=== PATIENT | female | born 1965 | race Caucasian/White ===

== ENCOUNTER 2022-08-17 09:58 | Outpatient (REF) | payer OTHER, SELFPAY ==
--- NOTE | ~2022-08-17 | XR_ITS ---
EXAMINATION: XR LUMBOSACRAL SPINE CLINICAL INFORMATION: Degenerative disc disease. COMPARISON: None TECHNIQUE: AP, bilateral oblique and lateral (neutral, flexion and extension) views of the lumbar spine and lateral view of the lumbosacral junction. FINDINGS: There is bony demineralization. There is a moderate thoracolumbar levoscoliosis. At T12-L1 and L1-L2, there is moderately severe rightward disc space narrowing. At L2-L3, there is mild disc space narrowing at a 4 mm retrolisthesis. The remaining disc spaces are relatively well-maintained. No acute fracture or spondylolisthesis is seen. There is no instability with flexion or extension. There is multi-level thoracolumbar spondylosis. The posterior elements are intact. There is facet arthropathy, most pronounced at L5-S1. The paravertebral soft tissues are unremarkable. XR/XR sacrum coccyx min 2V IMPRESSION: 1. There is a moderate thoracolumbar levoscoliosis. 2. There is moderately severe degenerative disc disease at T12-L1 and L1-L2., And mild degenerative disc disease is seen at L2-L3. 3. No significant instability is seen with flexion or extension. 4. There is multi-level lumbar spondylosis and facet arthropathy. EXAMINATION: XR SACRUM AND COCCYX CLINICAL INFORMATION: Degenerative changes. COMPARISON: None available. TECHNIQUE: 3 frontal and lateral views of the sacrum and coccyx were obtained. FINDINGS: There are no fractures. No bone, joint or soft tissue abnormality is demonstrated. IMPRESSION: Unremarkable examination.
--- NOTE | ~2022-08-17 | XR_ITS ---
EXAMINATION: XR LUMBOSACRAL SPINE CLINICAL INFORMATION: Degenerative disc disease. COMPARISON: None TECHNIQUE: AP, bilateral oblique and lateral (neutral, flexion and extension) views of the lumbar spine and lateral view of the lumbosacral junction. FINDINGS: There is bony demineralization. There is a moderate thoracolumbar levoscoliosis. At T12-L1 and L1-L2, there is moderately severe rightward disc space narrowing. At L2-L3, there is mild disc space narrowing at a 4 mm retrolisthesis. The remaining disc spaces are relatively well-maintained. No acute fracture or spondylolisthesis is seen. There is no instability with flexion or extension. There is multi-level thoracolumbar spondylosis. The posterior elements are intact. There is facet arthropathy, most pronounced at L5-S1. The paravertebral soft tissues are unremarkable. XR/XR lumbar spine 6V w bending IMPRESSION: 1. There is a moderate thoracolumbar levoscoliosis. 2. There is moderately severe degenerative disc disease at T12-L1 and L1-L2., And mild degenerative disc disease is seen at L2-L3. 3. No significant instability is seen with flexion or extension. 4. There is multi-level lumbar spondylosis and facet arthropathy. EXAMINATION: XR SACRUM AND COCCYX CLINICAL INFORMATION: Degenerative changes. COMPARISON: None available. TECHNIQUE: 3 frontal and lateral views of the sacrum and coccyx were obtained. FINDINGS: There are no fractures. No bone, joint or soft tissue abnormality is demonstrated. IMPRESSION: Unremarkable examination.
== END 2022-08-17 09:59 | disposition home or self-care (01) ==
LOC: HO.XRAY 09:58
PROVIDERS: PCP Student in an Organized Health Care Education/Training Program; Visit Provider Nurse Practitioner Family
DX: M53.3 Sacrococcygeal disorders, not elsewhere classified (principal); M47.816 Spondylosis without myelopathy or radiculopathy, lumbar region; M51.37 Other intervertebral disc degeneration, lumbosacral region; E66.9 Obesity, unspecified
CPT/HCPCS: 72114; 72220; 99202

== ENCOUNTER 2022-09-29 06:05 | Outpatient (REF) | payer OTHER, SELFPAY ==
--- NOTE | ~2022-09-29 | FL_ITS ---
EXAMINATION: XR FLUOROSCOPY WITH IMAGES CLINICAL INFORMATION: Sacrococcygeal disorders. COMPARISON: None available. TECHNIQUE: Fluoroscopy Supervised By: Dr. Pike. Fluoroscopy Time: 0.2. Cumulative Dose: 16.6 mGy. DAP: 3.78 Gycm2. Images: 1. FINDINGS: Single lateral image of sacrum reveals needle inserted through the sacral foramina with contrast opacifying the presacral space. The visualized bones are grossly unremarkable. FL/FL guidance in treatment room IMPRESSION: Fluoroscopy guidance was provided to referring physician for pain management.
== END 2022-09-29 06:06 | disposition home or self-care (01) ==
LOC: CF 06:05
PROVIDERS: Visit Provider Anesthesiology
DX: M53.3 Sacrococcygeal disorders, not elsewhere classified (principal); M51.37 Other intervertebral disc degeneration, lumbosacral region; M47.816 Spondylosis without myelopathy or radiculopathy, lumbar region; E66.9 Obesity, unspecified; F17.200 Nicotine dependence, unspecified, uncomplicated
CPT/HCPCS: 64999; J3301

== ENCOUNTER 2022-10-27 06:09 | Outpatient (REF) | payer OTHER, SELFPAY ==
--- NOTE | ~2022-10-27 | FL_ITS ---
EXAMINATION: XR FLUOROSCOPY WITH IMAGES CLINICAL INFORMATION: Sacrococcygeal disorders, not elsewhere classified. COMPARISON: None available. TECHNIQUE: Fluoroscopy Supervised By: Dr. Pike. Fluoroscopy Time: 0.3 minutes. Cumulative Dose: 7.05 mGy. DAP: 1.92 Gycm2. Images: 4. FINDINGS: Images demonstrate needle placement and contrast injection of the bilateral sacroiliac joints FL/FL guidance in treatment room IMPRESSION: Fluoroscopy guidance for sacroiliac joint injections
== END 2022-10-27 06:10 | disposition home or self-care (01) ==
LOC: CF 06:09
PROVIDERS: Visit Provider Anesthesiology
DX: M53.3 Sacrococcygeal disorders, not elsewhere classified (principal); M51.37 Other intervertebral disc degeneration, lumbosacral region; M47.816 Spondylosis without myelopathy or radiculopathy, lumbar region; E66.9 Obesity, unspecified
CPT/HCPCS: 27096; J2795

== ENCOUNTER → 2022-10-29 08:28 | Outpatient (BNVA) | payer OTHER, SELFPAY | PROVIDERS: PCP Student in an Organized Health Care Education/Training Program; Visit Provider Nurse Practitioner Family | DX: M47.816 Spondylosis without myelopathy or radiculopathy, lumbar region (principal); M53.3 Sacrococcygeal disorders, not elsewhere classified; G43.909 Migraine, unspecified, not intractable, without status migrainosus; E66.9 Obesity, unspecified; Z68.32 Body mass index [BMI] 32.0-32.9, adult; F17.210 Nicotine dependence, cigarettes, uncomplicated | CPT/HCPCS: 99212 ==

== ENCOUNTER 2022-11-30 08:31 | Outpatient (AMB) | payer OTHER, SELFPAY ==
--- NOTE | 2022-11-30 08:32 | MHC.OFFVIS ---
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 Patient continues to endorse bilateral lower back pain with radiation to her buttocks and lateral hips and has been awaiting for insurance approval for bilateral therapeutic SIJ injections. Peer to Peer review was done today over the phone with Dr. Quinteros with clarification that previous injections were only diagnostic, with anesthetic only and no steroids were given. Next step for therapeutic SIJ injections were approved and we will book this accordingly once we receive confirmation. Patient reports right calf pain for one month. Denies any inciting events, injury, falls, or trauma. Pain is localized to right calf with mild tenderness upon light palpation but no swelling, warmth, rash or erythema. Patient denies contacting her PCP or seeking medical evaluation at ER or Urgent clinic for right calf pain. We will order Duplex US of RLE to rule out DVT. Patient is also reports abdominal pain with constipation for almost one week and will reach out to her PCP today. She notes that she might need to increase her fluid intake as well. Denies any recent cough, cold, infection, fever or other significant changes in medical history since last office visit. Patient denies any bladder or bowel incontinence or saddle anesthesia. PRIOR: Patient presents today to assess response to Ganglion Impar Block on 09/29/22 and Bilateral Diagnostic SIJ injections on 10/27/[address] Pike. Patient reports 50% pain relief in coccyx pain since injection and 80% pain relief for 1.5 days since SIJ injections with notable improved mobility, functioning and range of motions. Patient is interested to undergo therapeutic SIJ injections as next step. We also discussed peripheral nerve stimulation and RFA procedures as a longer and more sustained pain relief. Patient also reports increasing daily migraines headaches. She has elevated BP today without diagnosis of hypertension. Patient was encouraged to follow up regarding BP with her provider for further evaluation. I will refer patient to neurology and will obtain brain/head MRI. Denies any recent cough, cold, infection, fever or other significant changes in medical history since last office visit. Past Procedures: 10/27/22: Bilateral Diagnostic SIJ injections-80% pain relief for 1.5 days 09/29/22: Ganglion Impar Block-50% pain relief PRIOR: Patient is a pleasant 57 years old female with a history of lumbar DDD, chronic coccydynia and bilateral sacroiliitis, presents today for initial evaluation of lower back pain and coccyx pain. She attributes her pain generators to traumatic slip and fall injury about 5 years ago. Denies any recent trauma, injury or falls. She has had pain in her tailbone radiating towards her lower back and occasionally into her left leg since fall injury. Pain is constant and described as dull, sore, hurting, aching, heavy, spreading, radiating, piercing and occasionally throbbing. Pain increased with sitting, changing positions, or applying pressure directly to her tailbone. Pain affects her daily activities, she cannot sleep supine due to bilateral rotator cuff pain and has been sleeping in a recliner. Pain has been managed with methocarbamol and occasionally OTC medications with continued symptoms. She uses Donut pillow for pressure relief. Denies any previous injections or spine surgery. She reports completing pelvic physiotherapy in [place] with manipulation of her sacroiliac joints with minimal improvements. Denies fever, weight loss, abdominal or groin pain, vaginal bleeding, prolapse or discharge, bladder or bowel incontinence or saddle anesthesia. Patient is a daily smoker and currently not motivated to quit as she recently lost her dog. [facility] Medical History Carpal tunnel syndrome Complete tear of left rotator cuff DDD (degenerative disc disease), lumbosacral Depression Hyperlipidemia Migraine Osteopenia Plantar fasciitis Restless leg syndrome Vitamin D deficiency Social History Tobacco use type: Cigarette Cigarette Packs Per Day: 0.5 Review of Systems Const All systems reviewed & are unremarkable except as noted in HPI and below Physical Exam Vital Signs: Last Vital Signs Pulse 85 11/30/22 08:38 BP 166/75 H 11/30/22 08:38 Pulse Ox 96 11/30/22 08:38 Oxygen Delivery Method Room Air 11/30/22 08:38 BMI result Body Mass Index 32.1 General: Appears afebrile. Alert and oriented. Mood and affect appropriate. Follows and participates in conversation appropriately. Respiratory effort is unlabored. No cough. Able to transition from sit to stand unassisted. Mild limping with antalgic gait on the right. Back/Spine/Pelvis Cervical Spine: cervical muscular tenderness, pain with cervical ROM and No Cervical spine tenderness Thoracic/Lumbar Spine: thoracic and lumbar spine normal to inspection, No Thoracic/lumbar spine scar(s), Lasegue's sign negative, pain with thoraco-lumbar ROM, paraspinal muscle tenderness, No thoracic spinal tenderness and lumbar spinal tenderness (L4-S1) Pelvis: buttock tenderness bilaterally Sacroiliac joints: bilaterally (+Pelvic compression, Gaenslen, Ad's, Stinchfield, R>L) tender to palpation Extrem General: Yes capillary refill normal, Yes no clubbing, cyanosis or edema and Yes no calf tenderness Right lower extremity: lower leg Details: normal to inspection, tenderness Location: of the posterior calf and no edema; no erythema, no localized swelling, no ecchymosis and no unusual warmth Results Reviewed Results Reviewed: XR LUMBOSACRAL SPINE 08/17/22 FINDINGS: There is bony demineralization. There is a moderate thoracolumbar levoscoliosis. At T12-L1 and L1-L2, there is moderately severe rightward disc space narrowing. At L2-L3, there is mild disc space narrowing at a 4 mm retrolisthesis. The remaining disc spaces are relatively well-maintained. No acute fracture or spondylolisthesis is seen. There is no instability with flexion or extension. There is multi-level thoracolumbar spondylosis. The posterior elements are intact. There is facet arthropathy, most pronounced at L5-S1. The paravertebral soft tissues are unremarkable. IMPRESSION: ? 1. There is a moderate thoracolumbar levoscoliosis. ? 2. There is moderately severe degenerative disc disease at T12-L1 and L1-L2., And mild degenerative disc disease is seen at L2-L3. ? 3. No significant instability is seen with flexion or extension. ? 4. There is multi-level lumbar spondylosis and facet arthropathy. ? XR SACRUM AND COCCYX 08/17/22 ? FINDINGS: There are no fractures. No bone, joint or soft tissue abnormality is demonstrated. ? IMPRESSION: Unremarkable examination. Assessment & Plan Assessment & Plan (1) Right calf pain: Code(s): M79.661 - Pain in right lower leg (2) Lumbar spondylosis: Code(s): M47.816 - Spondylosis without myelopathy or radiculopathy, lumbar region (3) Sacroiliac joint pain: Code(s): M53.3 - Sacrococcygeal disorders, not elsewhere classified (4) Tobacco dependence: Code(s): F17.200 - Nicotine dependence, unspecified, uncomplicated (5) Obesity (BMI 30.0-34.9): Code(s): E66.9 - Obesity, unspecified Plan 1. Proceed with Bilateral therapeutic SIJ injections with local and fluoroscopy for SIJ pain as planned. 2. Patient was advised to follow up with her PCP regarding right calf pain and abdominal pain with constipation. US Duplex right lower extremity ordered to rule out DVT. All questions and concerns have been answered and patient agreed with the plan. Follow up after injections and sooner if needed. Orders: Orders US venous duplex LE RT Today M79.661 - Pain in right lower leg Coding Level of Care Code Est Pt Level 4 (35526) Diagnoses Right calf pain M79.661 Lumbar spondylosis M47.816 Sacroiliac joint pain M53.3 Tobacco dependence F17.200 Obesity (BMI 30.0-34.9) E66.9
[2022-11-30 08:38] VITALS: BP 166/75; PULSE 85; O2SAT 96; BMI 32.1
== END 2022-11-30 09:20 | disposition home or self-care (01) ==
PROVIDERS: PCP Student in an Organized Health Care Education/Training Program; Visit Provider Nurse Practitioner Family
DX: M79.661 Pain in right lower leg (principal); M47.816 Spondylosis without myelopathy or radiculopathy, lumbar region; M53.3 Sacrococcygeal disorders, not elsewhere classified; F17.200 Nicotine dependence, unspecified, uncomplicated; E66.9 Obesity, unspecified
CPT/HCPCS: 99214

== ENCOUNTER → 2022-11-30 08:31 | Outpatient (BNVA) | payer OTHER, SELFPAY | PROVIDERS: PCP Student in an Organized Health Care Education/Training Program; Visit Provider Nurse Practitioner Family | DX: M79.661 Pain in right lower leg (principal); M47.816 Spondylosis without myelopathy or radiculopathy, lumbar region; M53.3 Sacrococcygeal disorders, not elsewhere classified; E66.9 Obesity, unspecified; F17.210 Nicotine dependence, cigarettes, uncomplicated | CPT/HCPCS: 99212 ==

== ENCOUNTER 2022-12-04 14:23 | Outpatient (REF) | payer OTHER, SELFPAY ==
--- NOTE | ~2022-12-04 | US_ITS ---
EXAMINATION: US VENOUS ULTRASOUND WITH DOPPLER LOWER EXTREMITY, RIGHT CLINICAL INFORMATION: Right lower extremity pain. COMPARISON: None available. TECHNIQUE: Ultrasound of the deep veins is performed from the hip to the calf with compression sonography and color and pulse Doppler assessment. Spectral analysis with color-flow imaging is performed. FINDINGS: There is normal venous compression and respiratory variation and augmented flow. The visualized common femoral vein, superficial femoral vein, profunda femoral vein, popliteal vein, and the trifurcation region shows no evidence of deep venous thrombosis. No right popliteal cyst. The subcutaneous soft tissues are unremarkable. US/US venous duplex LE RT IMPRESSION: No evidence for deep venous thrombosis in the visualized veins of the right lower extremity.
== END 2022-12-04 14:24 | disposition home or self-care (01) ==
LOC: HO.HMGCX 14:23
PROVIDERS: Visit Provider Nurse Practitioner Family
DX: M79.661 Pain in right lower leg (principal)
CPT/HCPCS: 93971

== ENCOUNTER 2022-12-16 08:15 | Outpatient (REF) | payer OTHER, SELFPAY ==
--- NOTE | ~2022-12-16 | MR_ITS ---
EXAMINATION: MRI BRAIN WITHOUT CONTRAST CLINICAL INFORMATION: Migraine headaches. COMPARISON: No relevant prior imaging. TECHNIQUE: Multiplanar MR imaging of the brain was performed without contrast. 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 No acute territorial infarct. No pathological magnetic susceptibility artifact. Intracranial vascular flow voids are grossly maintained. There is no intracranial mass effect or midline shift. No abnormal extra-axial collection. Lateral and third ventricles are normal. No hydrocephalus. Midline structures including the cervicomedullary junction are normal. No acute bone marrow signal changes. No mastoid middle ear effusion. Trivial mucosal thickening within ethmoid air cells and maxillary sinuses. Globes and orbits are grossly symmetric. 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 Otherwise unremarkable examination. No evidence of acute territorial infarct or hemorrhage.
== END 2022-12-16 08:16 | disposition home or self-care (01) ==
LOC: HO.MRI 08:15
PROVIDERS: PCP Student in an Organized Health Care Education/Training Program; Visit Provider Nurse Practitioner Family
DX: G43.909 Migraine, unspecified, not intractable, without status migrainosus (principal); I63.9 Cerebral infarction, unspecified
CPT/HCPCS: 70551

== ENCOUNTER 2023-01-05 05:56 | Outpatient (REF) | payer OTHER, SELFPAY ==
--- NOTE | ~2023-01-05 | FL_ITS ---
EXAMINATION: XR FLUOROSCOPY WITH IMAGES CLINICAL INFORMATION: Sacrococcygeal disorders, not elsewhere classified. COMPARISON: None available. TECHNIQUE: Fluoroscopy Supervised By: Dr. Edilson Pike. Fluoroscopy Time: 0.3 minutes. Cumulative Dose: 3.61 mGy. DAP: 0.0628 Gycm2. Images: 2. FINDINGS: Images demonstrate needle placement and contrast injection over the bilateral sacroiliac joints FL/FL guidance in treatment room IMPRESSION: Fluoroscopy guidance for sacroiliac joint injections
== END 2023-01-05 05:57 | disposition home or self-care (01) ==
LOC: CF 05:56
PROVIDERS: Visit Provider Anesthesiology
DX: M53.3 Sacrococcygeal disorders, not elsewhere classified (principal); M47.816 Spondylosis without myelopathy or radiculopathy, lumbar region; M79.661 Pain in right lower leg; E11.9 Type 2 diabetes mellitus without complications; E66.9 Obesity, unspecified
CPT/HCPCS: 27096; J3301

== ENCOUNTER 2023-01-05 07:37 | Outpatient (AMB) | payer OTHER, SELFPAY ==
[2023-01-05 07:41] VITALS: BP 134/84; PULSE 88; RESP 16; O2SAT 98; BMI 32.2
--- NOTE | 2023-01-05 07:41 | MHC.OFFVIS ---
Intake Vital Signs 01/05/23 07:41 01/05/23 08:49 Height 5 ft 3 in 5 ft 3 in Weight 182 lb 182 lb BMI 32.2 32.2 BP 134/84 130/72 Blood Pressure Location Lt brachial Lt brachial Position Sitting Sitting Respiration 16 16 Pulse 88 78 Pulse Source Pulse Oximeter Pulse Oximeter Pulse Oximetry (%) 98 98 Oxygen Delivery Method Room Air Room Air Comment Pre-Op post-op Intake Visit Reasons: BILAT THERAPEUTIC SIJ INJECTIONS/*ATIVAN PRE* Allergies Sulfa (Sulfonamide Antibiotics) Allergy (Unknown, Verified 01/05/23 07:42) Rash tramadol Allergy (Unknown, Verified 01/05/23 07:42) Itching PFSH Medical History Carpal tunnel syndrome Complete tear of left rotator cuff DDD (degenerative disc disease), lumbosacral Depression Hyperlipidemia Migraine Osteopenia Plantar fasciitis Restless leg syndrome Vitamin D deficiency Social History Tobacco use type: Cigarette Cigarette Packs Per Day: 0.5 Physical Exam Vital Signs: Last Vital Signs Pulse 78 01/05/23 08:49 Resp 16 01/05/23 08:49 BP 130/72 01/05/23 08:49 Pulse Ox 98 01/05/23 08:49 Oxygen Delivery Method Room Air 01/05/23 08:49 BMI result Body Mass Index 32.2 Assessment & Plan Assessment & Plan (1) Right calf pain: Code(s): M79.661 - Pain in right lower leg (2) Lumbar spondylosis: Code(s): M47.816 - Spondylosis without myelopathy or radiculopathy, lumbar region (3) Sacroiliac joint pain: Code(s): M53.3 - Sacrococcygeal disorders, not elsewhere classified Plan: Bilateral therapeutic sacroiliac joint injection Informed consent was explained thoroughly to the patient, risks were explained including the risk of yatrogenic diabetes.. All questions about benefits and risks for the procedure were answered. Patient came to the operating room and was positioned prone on the operating table with the pillow under the pelvis. Time out was performed delineating name and of the patient, allergies and the nature of the procedure. The lower back and buttocks of the patient were prepped with ChloraPrep prepped and draped with sterile utility towels. C-arm was brought over the operating field and sq picture of patient's pelvis was demonstrated on the screen. For the right joint tilting C-arm contralateral to the site of the joint the most posterior portion of the joints was superimposed with anterior silhouette of the joint. Skin was injected in the projection of the joint slightly medial to the location of the joint with 25 gauge 1/2 inch needle using local lidocaine 2% .After that 22 gauge 3 and 1/2 inch needle was driven to the right joint in tunnel vision fashion. When needle entered the joint capsule injection of the contrast was performed demonstrating intra-articular and minimally periarticular spread of the contrast. After that 4 cc. of ropivacaine 0.5% mixed with kenalog 40 mg was injected into the joint. After that the procedure was repeated on the left joint in the mirroring fashion. Upon completion of the injections the needle was removed Sterile dressing was applied. Upon completion of the injection patient was taken outside of the operating room to the recovery room where recovered uneventfully (4) Tobacco dependence: Code(s): F17.200 - Nicotine dependence, unspecified, uncomplicated (5) Obesity (BMI 30.0-34.9): Code(s): E66.9 - Obesity, unspecified Plan 1. Proceed with Bilateral therapeutic SIJ injections with local and fluoroscopy for SIJ pain as planned. 2. Patient was advised to follow up with her PCP regarding right calf pain and abdominal pain with constipation. US Duplex right lower extremity ordered to rule out DVT. All questions and concerns have been answered and patient agreed with the plan. Follow up after injections and sooner if needed. Orders: Orders FL guidance in treatment room Today M53.3 - Sacrococcygeal disorders, not elsewhere classified Hansa Mckay, [employer], [employer] Medications: New ondansetron 4 mg PO Q8H PRN 10 tabs 1RF nausea and vomiting 2 days Edilson Pike MD Coding Level of Care Code Procedure Only Diagnoses Right calf pain M79.661 Lumbar spondylosis M47.816 Sacroiliac joint pain M53.3 Tobacco dependence F17.200 Obesity (BMI 30.0-34.9) E66.9
[2023-01-05 08:49] VITALS: BP 130/72; PULSE 78; RESP 16; O2SAT 98; BMI 32.2
== END 2023-01-05 08:31 | disposition home or self-care (01) ==
PROVIDERS: PCP Student in an Organized Health Care Education/Training Program; Visit Provider Anesthesiology
DX: M53.3 Sacrococcygeal disorders, not elsewhere classified (principal); M47.816 Spondylosis without myelopathy or radiculopathy, lumbar region
CPT/HCPCS: 27096

== ENCOUNTER 2023-01-25 13:21 | Outpatient (AMB) | payer OTHER, SELFPAY ==
--- NOTE | 2023-01-25 13:27 | MHC.OFFVIS ---
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 Piek. Patient reports since recent injections, she has increased bilateral leg cramping and spasming, left worse than right. She reports SIJ injections were not helpful as she continues to experience significant low back pain with radicular symptoms. She has been previously seen by her PCP for right calf pain this summer with negative US. Patient reports she suffers from restless leg syndrome and these symptoms have been worsened as well. Patient reports lower back pain with radiation into her bilateral lower extremities anteriorly and posteriorly. Patient reports she has tried to manage her leg cramps with magnesium, meloxicam and muscle relaxants as well as consuming bananas without relief. We will proceed with lumbar spine MRI to assess for for neural integrity and compression as well as check her electrolytes as therapeutic injections can exacerbate preexisting electrolyte changes due to low potassium effects with steroids. Denies any fever, weight loss, bladder or bowel dysfunction or saddle anesthesia. Patient reports she has upcoming Neurology appointment next month for migraines and RLS. PRIOR: Patient presents today for follow up for bilateral low back pain and new right calf pain for one month. Patient continues to endorse bilateral lower back pain with radiation to her buttocks and lateral hips and has been awaiting for insurance approval for bilateral therapeutic SIJ injections. Peer to Peer review was done today over the phone with Dr. Quinteros with clarification that previous injections were only diagnostic, with anesthetic only and no steroids were given. Next step for therapeutic SIJ injections were approved and we will book this accordingly once we receive confirmation. Patient reports right calf pain for one month. Denies any inciting events, injury, falls, or trauma. Pain is localized to right calf with mild tenderness upon light palpation but no swelling, warmth, rash or erythema. Patient denies contacting her PCP or seeking medical evaluation at ER or Urgent clinic for right calf pain. We will order Duplex US of RLE to rule out DVT. Patient is also reports abdominal pain with constipation for almost one week and will reach out to her PCP today. She notes that she might need to increase her fluid intake as well. Denies any recent cough, cold, infection, fever or other significant changes in medical history since last office visit. Patient denies any bladder or bowel incontinence or saddle anesthesia. PRIOR: Patient presents today to assess response to Ganglion Impar Block on 09/29/22 and Bilateral Diagnostic SIJ injections on 10/27/[address] Pike. Patient reports 50% pain relief in coccyx pain since injection and 80% pain relief for 1.5 days since SIJ injections with notable improved mobility, functioning and range of motions. Patient is interested to undergo therapeutic SIJ injections as next step. We also discussed peripheral nerve stimulation and RFA procedures as a longer and more sustained pain relief. Patient also reports increasing daily migraines headaches. She has elevated BP today without diagnosis of hypertension. Patient was encouraged to follow up regarding BP with her provider for further evaluation. I will refer patient to neurology and will obtain brain/head MRI. Denies any recent cough, cold, infection, fever or other significant changes in medical history since last office visit. Past Procedures: 10/27/22: Bilateral Diagnostic SIJ injections-80% pain relief for 1.5 days 09/29/22: Ganglion Impar Block-50% pain relief PRIOR: Patient is a pleasant 57 years old female with a history of lumbar DDD, chronic coccydynia and bilateral sacroiliitis, presents today for initial evaluation of lower back pain and coccyx pain. She attributes her pain generators to traumatic slip and fall injury about 5 years ago. Denies any recent trauma, injury or falls. She has had pain in her tailbone radiating towards her lower back and occasionally into her left leg since fall injury. Pain is constant and described as dull, sore, hurting, aching, heavy, spreading, radiating, piercing and occasionally throbbing. Pain increased with sitting, changing positions, or applying pressure directly to her tailbone. Pain affects her daily activities, she cannot sleep supine due to bilateral rotator cuff pain and has been sleeping in a recliner. Pain has been managed with methocarbamol and occasionally OTC medications with continued symptoms. She uses Donut pillow for pressure relief. Denies any previous injections or spine surgery. She reports completing pelvic physiotherapy in [place] with manipulation of her sacroiliac joints with minimal improvements. Denies fever, weight loss, abdominal or groin pain, vaginal bleeding, prolapse or discharge, bladder or bowel incontinence or saddle anesthesia. Patient is a daily smoker and currently not motivated to quit as she recently lost her dog. [facility] Medical History (Updated 01/25/23 @ 13:47 by LYRIC Burton) Vitamin D deficiency Restless leg syndrome Depression Plantar fasciitis Osteopenia Migraine Hyperlipidemia DDD (degenerative disc disease), lumbosacral Complete tear of left rotator cuff Carpal tunnel syndrome Social History Tobacco use type: Cigarette Cigarette Packs Per Day: 0.5 Review of Systems Const All systems reviewed & are unremarkable except as noted in HPI and below Physical Exam Vital Signs: Last Vital Signs Pulse 89 01/25/23 13:32 BP 144/86 H 01/25/23 13:32 Pulse Ox 98 01/25/23 13:32 Oxygen Delivery Method Room Air 01/25/23 13:32 BMI result Body Mass Index 32.5 General: Appears afebrile. Alert and oriented. Mood and affect appropriate. Follows and participates in conversation appropriately. Respiratory effort is unlabored. No cough. Able to transition from sit to stand unassisted. Back/Spine/Pelvis Cervical Spine: cervical muscular tenderness and No Cervical spine tenderness Thoracic/Lumbar Spine: thoracic and lumbar spine normal to inspection, No Thoracic/lumbar spine scar(s), Lasegue's sign negative, straight leg raise negative bilaterally, pain with thoraco-lumbar ROM, paraspinal muscle tenderness, No thoracic spinal tenderness and lumbar spinal tenderness (L4-S1) Pelvis: buttock tenderness bilaterally Sacroiliac joints: bilaterally (Ad's and Stinchfield, left>right) tender to palpation Extrem General: Yes capillary refill normal, Yes no clubbing, cyanosis or edema and Yes no calf tenderness Results Reviewed Results Reviewed: XR LUMBOSACRAL SPINE 08/17/22 FINDINGS: There is bony demineralization. There is a moderate thoracolumbar levoscoliosis. At T12-L1 and L1-L2, there is moderately severe rightward disc space narrowing. At L2-L3, there is mild disc space narrowing at a 4 mm retrolisthesis. The remaining disc spaces are relatively well-maintained. No acute fracture or spondylolisthesis is seen. There is no instability with flexion or extension. There is multi-level thoracolumbar spondylosis. The posterior elements are intact. There is facet arthropathy, most pronounced at L5-S1. The paravertebral soft tissues are unremarkable. IMPRESSION: ? 1. There is a moderate thoracolumbar levoscoliosis. ? 2. There is moderately severe degenerative disc disease at T12-L1 and L1-L2., And mild degenerative disc disease is seen at L2-L3. ? 3. No significant instability is seen with flexion or extension. ? 4. There is multi-level lumbar spondylosis and facet arthropathy. ? XR SACRUM AND COCCYX 08/17/22 ? FINDINGS: There are no fractures. No bone, joint or soft tissue abnormality is demonstrated. ? IMPRESSION: Unremarkable examination. US VENOUS ULTRASOUND WITH DOPPLER LOWER EXTREMITY, RIGHT 12/04/22 CLINICAL INFORMATION: Right lower extremity pain. FINDINGS: There is normal venous compression and respiratory variation and augmented flow. The visualized common femoral vein, superficial femoral vein, profunda femoral vein, popliteal vein, and the trifurcation region shows no evidence of deep venous thrombosis. No right popliteal cyst. The subcutaneous soft tissues are unremarkable. IMPRESSION: No evidence for deep venous thrombosis in the visualized veins of the right lower extremity. Assessment & Plan Assessment & Plan (1) Peripheral neuropathy: Code(s): G62.9 - Polyneuropathy, unspecified (2) Restless leg syndrome: Code(s): G25.81 - Restless legs syndrome (3) Lumbar radiculopathy: Code(s): M54.16 - Radiculopathy, lumbar region (4) DDD (degenerative disc disease), lumbosacral: Code(s): M51.37 - Other intervertebral disc degeneration, lumbosacral region (5) Sacroiliac joint pain: Code(s): M53.3 - Sacrococcygeal disorders, not elsewhere classified (6) Lumbar spondylosis: Code(s): M47.816 - Spondylosis without myelopathy or radiculopathy, lumbar region Plan 1. Patient is status post bilateral therapeutic SIJ injections on 01/05/23 and has notified our office on 01/21/23 for bilateral leg and foot cramps since injections. We will proceed with electrolytes check and lumbar spine MRI to assess for neural integrity and compression. Patient also has Neurology evaluation next month for her RLS and migraines. No evidence for deep venous thrombosis in the visualized veins of the right lower extremity per US on 12/04/22. 2. Start gabapentin 300 mg BID, first dose at bedtime. Side effects and precautions were discussed with patient. All questions and concerns have been answered and patient agreed with the plan. Follow up for MRI results and sooner if needed. Orders: Orders Magnesium Today G62.9 - Polyneuropathy, unspecified MR lumbar spine wo con Today G62.9 - Polyneuropathy, unspecified, M51.37 - Other intervertebral disc degeneration, lumbosacral region, M54.16 - Radiculopathy, lumbar region Electrolytes Today G62.9 - Polyneuropathy, unspecified Medications: New gabapentin 300 mg PO BID 60 caps 0RF pain G25.81 - Restless legs syndrome, G62.9 - Polyneuropathy, unspecified Coding Level of Care Code Est Pt Level 4 (51933) Diagnoses Peripheral neuropathy G62.9 Restless leg syndrome G25.81 Lumbar radiculopathy M54.16 DDD (degenerative disc disease), lumbosacral M51.37 Sacroiliac joint pain M53.3 Lumbar spondylosis M47.816
[2023-01-25 13:32] VITALS: BP 144/86; PULSE 89; O2SAT 98; BMI 32.5
== END 2023-01-25 13:52 | disposition home or self-care (01) ==
PROVIDERS: PCP Student in an Organized Health Care Education/Training Program; Visit Provider Nurse Practitioner Family
DX: G62.9 Polyneuropathy, unspecified (principal); G25.81 Restless legs syndrome; M54.16 Radiculopathy, lumbar region; M51.37 Other intervertebral disc degeneration, lumbosacral region; M53.3 Sacrococcygeal disorders, not elsewhere classified; M47.816 Spondylosis without myelopathy or radiculopathy, lumbar region
CPT/HCPCS: 99214

== ENCOUNTER 2023-01-25 13:21 | Outpatient (REF) | payer OTHER, SELFPAY ==
[2023-01-25 15:11] LABS: Anion Gap 10 (12-20); Carbon Dioxide 28 mmol/L (22-29); Chloride 102 mmol/L (96-108); Magnesium 2.2 mg/dL (1.6-2.6); Sodium 136 mmol/L (135-145)
== END 2023-01-25 13:22 | disposition home or self-care (01) ==
LOC: HO.LAB 13:21
PROVIDERS: PCP Student in an Organized Health Care Education/Training Program; Visit Provider Nurse Practitioner Family
DX: G62.9 Polyneuropathy, unspecified (principal); M54.16 Radiculopathy, lumbar region; M51.37 Other intervertebral disc degeneration, lumbosacral region; M53.3 Sacrococcygeal disorders, not elsewhere classified; M47.816 Spondylosis without myelopathy or radiculopathy, lumbar region; G25.81 Restless legs syndrome
CPT/HCPCS: 36415; 80051; 83735; 99212

== ENCOUNTER 2023-02-10 11:59 | Outpatient (AMB) | payer OTHER, SELFPAY ==
--- NOTE | 2023-02-10 12:37 | MHC.OFFVIS ---
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 Patient states I get them once in a great while, they came back after injection treatment with full force continuing through my legs. Allergies Sulfa (Sulfonamide Antibiotics) Allergy (Unknown, Verified 02/10/23 12:40) Rash tramadol Allergy (Unknown, Verified 02/10/23 12:40) Itching Medication List - Last Reconciled 02/10/23 by Sandy Singh, LYRIC amitriptyline 10 - 20 mg (1 - 2 x 10 mg) PO BEDTIME 30 days citalopram 20 mg PO DAILY gabapentin 300 mg PO BID lidocaine 5% 1 patch topical DAILY magnesium glycinate 200 mg (2 x 100 mg) PO DAILY 30 days magnesium oxide 420 mg PO QAM meloxicam 15 mg PO DAILY PRN methocarbamol 750 mg PO BEDTIME PRN ondansetron 4 mg PO Q8H PRN 2 days pramipexole 0.75 mg PO BEDTIME riboflavin (vitamin B2) 400 mg PO DAILY ubrogepant (Ubrelvy) 50 - 100 mg (0.5 - 1 x 100 mg) PO ONCE PRN 30 days HPI HPI Comments History of Present Illness Details Right-handed 57-yr-old female presents for new pt evaluation of headache disorder. Pt reports she has had migraine since childhood. She states she never needed to see somebody for this, as they were sporadic and responded easily to OTC Excedrin. However, she started having an increase in the frequency and severity of her migraine attacks after she started having lower lumbar injections a few months ago. These injections were for treatment of chronic tailbone region pain d/t a slip and fall approx 5 years ago. Pt also reports since the injections, she has had increased leg cramps in the right calf and then a pulling/tightness in the entire LLE. Headache questionnaire: Previous work-up? 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 Otherwise unremarkable examination. No evidence of acute territorial infarct or hemorrhage. Typical headache characteristics: Prodrome symptoms? Unsure Aura? May see flashes of light or may see waves out of the right side of her eye- this is not a/w the headache. Location, quality, characteristics? Wakes up in the morning when she opens her eyes with holocranial, pounding, throbbing, pressure Pain intensity? Mod-Severe Associated symptoms? Photophobia, phonophobia, osmophobia, nausea, tiredness, Focal weakness, Parethesias, Autonomic s/s? None Postdrome? May have some residual symptoms at times Triggers? Unsure Any positional, valsalva, exertional, sexual activity triggers? None Menstrual triggers? post-menopausal Time of day? Usually she is waking up with headache. Duration? All day w/o tx. Frequency? At least 5 days a week. Prior to August 2022- maybe 3 attacks per month. How does headache impact your life? Cannot do her daily activities. Current acute medication use/interventions: Excedrin Migraine, Previous acute medication use: None Current preventative medication use: B2, Mag Oxide Previous preventative medication use: Amitriptyline 10mg- ineffective Non-pharmacological interventions: Cold cloth History of musculoskeletal disorders or injury? Shoulder injury. Low back issues- as above. No usual neck pain. History of concussion/head injury? None History of mood disorder? Depression, anxiety History of sleep disorder? Can fall asleep, but frequent arousals. Has never had a sleep study. Soriano shad RLS x's 30 yrs- cannot sit still, been on Pramipexole x's approx 30 yrs. History of respiratory disease? None History of CV disease? Denies, however BP has been repeatedly elevated. History of coagulopathy? None History of endocrine or metabolic disease? None History of seizure? None History of GI disorder? More recently having constipation. Family planning? n/a Family history of migraine or other headache disorder? her mother (her mother has JORDAN). [facility] Medical History (Updated 02/16/23 @ 08:54 by LYRIC Puente) EUGENIA (iron deficiency anemia) Vitamin D deficiency Restless leg syndrome Depression Plantar fasciitis Osteopenia Migraine Hyperlipidemia DDD (degenerative disc disease), lumbosacral Complete tear of left rotator cuff Carpal tunnel syndrome Surgical History (Updated 02/10/23 @ 12:41 by KRISTYN Winslow) H/O shoulder surgery Social History (Updated 02/10/23 @ 12:41 by KRISTYN Winslow) Alcohol intake: never Patient Tobacco Use Status: Current everyday Tobacco user Tobacco use type: Cigarette Cigarette Packs Per Day: 0.5 Review of Systems Const Details: See scanned ROS form Physical Exam Vital Signs: Last Vital Signs Pulse 94 02/10/23 12:42 BP 144/92 H 02/10/23 12:42 Pulse Ox 98 02/10/23 12:42 Oxygen Delivery Method Room Air 02/10/23 12:42 Const Orientation/consciousness: patient oriented x3 HEENT Other: No palpable scalp tenderness. Head: Yes normocephalic Resp Effort & Inspection: normal respiratory effort and able to speak in complete sentences Neuro Other: BUE R > L mild tremor wingbeat and kinetic (on finger-nose) Right elbow mild tightness Right ankle tightness On pronator drift exam- mild darvin finger movements, but no pronator drift Good stride, steady gait General: patient oriented x3 Cranial nerves: Yes CN's II-XII intact bilaterally Cognition (Neuro): normal cognition Gait exam (Neuro): Normal gait present Motor exam (neuro): 5/5 motor strength present throughout Deep tendon reflexes (DTR's): Right triceps reflex intensity grade: 2+, Left triceps reflex intensity grade: 2+, Rt Biceps (C5, C6): 2+, Left biceps reflex intensity grade: 2+, Right brachioradialis reflex intensity grade: 2+, Left brachioradialis reflex intensity grade: 2+, Right patellar reflex intensity grade: 2+ and Left patellar reflex intensity grade: 2+ Coordination: [id number] test normal and Romberg test negative Pupils: Normal pupillary reactivity/response: bilateral Psych Appearance: grossly normal Mental Status: mental status grossly normal Speech and movement: Clear speech present Affect: normal affect Attitude: cooperative Thought process: Normal thought process present Assessment & Plan Assessment & Plan (1) Migraine with aura: Code(s): G43.109 - Migraine with aura, not intractable, without status migrainosus (2) Muscle spasm: Code(s): M62.838 - Other muscle spasm (3) Fatigue: Code(s): R53.83 - Other fatigue (4) Tremor: Code(s): R25.1 - Tremor, unspecified (5) Snoring: Code(s): R06.83 - Snoring (6) Sleep disorder: Code(s): G47.9 - Sleep disorder, unspecified (7) Excessive daytime sleepiness: Code(s): G47.19 - Other hypersomnia Plan Pt advised to undergo labs to assess for muscle spasms, RLS. Pt advised to undergo HST to assess for sleep apnea- on f/u consider in-lab PSG to assess for PLMS. Monitor tremor, RLS, muscle spasm s/s. For overall headache management: Discussed importance of good self-care, including but not limited to maintaining a healthy diet, adequate fluid intake, adequate sleep, and engaging in regular physical activity. For headache triggers: Track headaches. For acute headache treatment: Discussed importance of taking acute medications at the first sign of headache, however stressed importance of avoiding acute medication overuse (especially with combined headache medications). Trial Ubrogepant (Ubrelvy) 100mg tab, 1/2 - 1 tab (50-100mg) at onset of headache, may repeat in 2 hours. Max of 2 tabs (200mg) per 24 hours. May adjunct with OTC Tylenol 650mg q 4 hours, Ibuprofen 600mg q 6 hours, or Naproxen 440mg q 12 hrs prn. . Reviewed potential adverse effects of gepants, including but not limited to fatigue, nausea, dry mouth, constipation. Previous acute migraine medication trials: Excedrin. Acute migraine medication contraindications: Triptans d/t HTN. For headache prevention medication: Discussed that preventative medications should be taken routinely as prescribed for best effect, it may take several weeks for full effect to take effect. Continue Riboflavin 400mg qam Continue Magnesium 400mg qhs Start Amitriptyline 10-20mg qhs scheduled. Reviewed potential adverse effects of TCAs, including but not limited to fatigue, cardiac arrhythmias, mood changes. Previous migraine prevention medication trials: No other Migraine prevention medication contraindications: None at this time Pt to follow-up in 3 months or sooner prn. Orders: Orders IRON PROFILE 02/10/23 D50.9 - Iron deficiency anemia, unspecified, G25.81 - Restless legs syndrome, M62.838 - Other muscle spasm, R53.83 - Other fatigue Vitamin B12 and Folate 02/10/23 D50.9 - Iron deficiency anemia, unspecified, G25.81 - Restless legs syndrome, M62.838 - Other muscle spasm, R53.83 - Other fatigue Comprehensive Met. Panel 02/10/23 D50.9 - Iron deficiency anemia, unspecified, G25.81 - Restless legs syndrome, M62.838 - Other muscle spasm, R53.83 - Other fatigue Complete Blood Count Auto Diff 02/10/23 D50.9 - Iron deficiency anemia, unspecified, G25.81 - Restless legs syndrome, M62.838 - Other muscle spasm, R53.83 - Other fatigue Ferritin 02/10/23 D50.9 - Iron deficiency anemia, unspecified, G25.81 - Restless legs syndrome, M62.838 - Other muscle spasm, R53.83 - Other fatigue TSH reflex Free T4 02/10/23 D50.9 - Iron deficiency anemia, unspecified, G25.81 - Restless legs syndrome, M62.838 - Other muscle spasm, R53.83 - Other fatigue Creatine Kinase Total 02/10/23 D50.9 - Iron deficiency anemia, unspecified, G25.81 - Restless legs syndrome, M62.838 - Other muscle spasm, R53.83 - Other fatigue RT home sleep study Today G47.19 - Other hypersomnia, G47.9 - Sleep disorder, unspecified, R06.83 - Snoring Medications: New ubrogepant (Ubrelvy) take at onset of migraine, may repeat in 2hrs (may take w/ Ibuprofen) 50 - 100 mg (0.5 - 1 x 100 mg) PO ONCE 30 days PRN 16 tabs 3RF migraine headache Changed From amitriptyline 10 mg PO BEDTIME PRN 90 tabs 1RF for pain G43.909 - Migraine, unspecified, not intractable, without status migrainosus To amitriptyline 10 - 20 mg (1 - 2 x 10 mg) PO BEDTIME 30 days 60 tabs 3RF for pain G43.909 - Migraine, unspecified, not intractable, without status migrainosus Coding Level of Care Code New Pt Level 4 (93479) Diagnoses Migraine with aura G43.109 Muscle spasm M62.838 Fatigue R53.83 Tremor R25.1 Snoring R06.83 Sleep disorder G47.9 Excessive daytime sleepiness G47.19
[2023-02-10 12:42] VITALS: BP 144/92; PULSE 94; O2SAT 98
== END 2023-02-10 13:38 | disposition home or self-care (01) ==
PROVIDERS: PCP Student in an Organized Health Care Education/Training Program; Visit Provider Nurse Practitioner Family
DX: G43.109 Migraine with aura, not intractable, without status migrainosus (principal); M62.838 Other muscle spasm; R53.83 Other fatigue; R25.1 Tremor, unspecified; R06.83 Snoring; G47.9 Sleep disorder, unspecified; G47.19 Other hypersomnia
CPT/HCPCS: 99204

== ENCOUNTER → 2023-02-10 11:59 | Outpatient (BNVA) | payer OTHER, SELFPAY | PROVIDERS: PCP Student in an Organized Health Care Education/Training Program; Visit Provider Nurse Practitioner Family ==

== ENCOUNTER 2023-03-16 08:09 | Outpatient (REF) | payer OTHER, SELFPAY ==
--- NOTE | ~2023-03-16 | MR_ITS ---
MR LUMBAR SPINE WITHOUT CONTRAST CLINICAL INFORMATION: Polyneuropathy. COMPARISON: None available. TECHNIQUE: MRI of the lumbar spine was obtained using routine sequences without contrast. FINDINGS: There are 5 nonrib-bearing lumbar-type vertebral bodies. There is grade 1 retrolisthesis of L1 on L2, L2 on L3, and L3 on L4. Small chronic upper endplate Schmorl's nodes at L3 and L4. There are multilevel endplate osteophytes. Vertebral body heights are overall maintained. Is mild Modic type I endplate signal changes at L1-L2 and L2-L3. There are no acute fractures. No significant extraspinal soft tissue findings. Small left renal cyst for which no further imaging follow-up is warranted. L1-L2: Grade 1 retrolisthesis. Small diffuse annular disc bulge. There is no central canal stenosis and there is no significant foraminal stenosis. L2-L3: Grade 1 retrolisthesis. Diffuse annular disc bulge is in part disc osteophyte and mild bilateral facet arthropathy. There is no central canal stenosis. There is mild foraminal encroachment bilaterally. L3-L4: There is a diffuse annular disc bulge is in part disc osteophyte and there is moderate bilateral facet arthropathy and ligamentum flavum thickening. Findings in concert result in mild central canal stenosis, left subarticular zone stenosis with mass effect on the traversing left L4 nerve root, and mild to moderate bilateral foraminal stenosis with a far right lateral disc protrusion resulting in mass effect on the extraforaminal right L3 nerve root. There are a few small synovial cyst along the upper and posterior margin of the right facet joint. L4-L5: Diffuse annular disc bulge and moderate bilateral hypertrophic facet arthropathy. There is no central canal stenosis. Mild to moderate bilateral foraminal stenosis. A right lateral disc protrusion contacts the extraforaminal right L4 nerve root. L5-S1: Diffuse annular disc bulge and left greater then right facet arthropathy. No central canal stenosis. Mild to moderate right and mild left foraminal stenosis. MR/MR lumbar spine wo con IMPRESSION: - At L3-L4, multifactorial degenerative changes result in mild central canal stenosis, left subarticular zone stenosis with mass effect on the traversing left L4 nerve root, and mild to moderate bilateral foraminal stenosis with a far right lateral disc protrusion resulting in mass effect on the extraforaminal right L3 nerve root. There are a few small synovial cyst along the upper and posterior margin of the right facet joint. - At L4-L5, a right lateral disc protrusion contacts the extraforaminal right L4 nerve root. - Additional degenerative changes as discussed above.
== END 2023-03-16 08:10 | disposition home or self-care (01) ==
LOC: HO.MRI 08:09
PROVIDERS: PCP Student in an Organized Health Care Education/Training Program; Visit Provider Nurse Practitioner Family
DX: M54.16 Radiculopathy, lumbar region (principal); M51.37 Other intervertebral disc degeneration, lumbosacral region; G62.9 Polyneuropathy, unspecified
CPT/HCPCS: 72148

== ENCOUNTER → 2023-03-25 14:51 | Outpatient (REF) | payer OTHER, SELFPAY | LOC: HO.SL 14:51 | PROVIDERS: PCP Student in an Organized Health Care Education/Training Program; Visit Provider Nurse Practitioner Family | DX: R06.83 Snoring (principal); G47.9 Sleep disorder, unspecified; G47.19 Other hypersomnia; G47.33 Obstructive sleep apnea (adult) (pediatric) | CPT/HCPCS: 95806 ==

== ENCOUNTER → 2023-03-25 15:07 | Outpatient (BNV) | payer OTHER, SELFPAY | PROVIDERS: PCP Student in an Organized Health Care Education/Training Program; Visit Provider Psychiatry & Neurology Neurology | DX: G47.33 Obstructive sleep apnea (adult) (pediatric) (principal) | CPT/HCPCS: 95806 ==

== ENCOUNTER 2023-05-11 08:58 | Outpatient (AMB) | payer OTHER, SELFPAY ==
--- NOTE | 2023-05-11 09:02 | MHC.OFFVIS ---
Intake Vital Signs 05/11/23 09:03 Height 5 ft 3 in Weight 181 lb BMI 32.1 Blood Pressure Location Lt brachial Position Sitting Respiration 12 Pulse 103 H Pulse Source Pulse Oximeter Pulse Oximetry (%) 95 Oxygen Delivery Method Room Air Intake Visit Reasons: Lumbar Spine MRI Review/Results (from 03/16/23) Allergies Sulfa (Sulfonamide Antibiotics) Allergy (Unknown, Verified 05/11/23 09:04) Rash tramadol Allergy (Unknown, Verified 05/11/23 09:04) Itching Medication List - Last Reconciled 05/11/23 by Marina Keating LPN amitriptyline 10 - 20 mg (1 - 2 x 10 mg) PO BEDTIME 30 days citalopram 20 mg PO DAILY gabapentin 300 mg PO BID 30 days lidocaine 5% 1 patch topical DAILY losartan 25 mg PO DAILY magnesium glycinate 200 mg (2 x 100 mg) PO DAILY 30 days meloxicam 15 mg PO DAILY PRN methocarbamol 750 mg PO BEDTIME PRN ondansetron 4 mg PO Q8H PRN 2 days pramipexole 0.75 mg PO BEDTIME riboflavin (vitamin B2) 400 mg PO DAILY ubrogepant (Ubrelvy) 50 - 100 mg (0.5 - 1 x 100 mg) PO ONCE PRN 30 days HPI HPI Comments History of Present Illness Details Presents today for follow-up to discuss recent lumbar spine MRI results. Patient continues to report axial low back pain S radiation into her left anterior thigh with spasming, numbness and tingling. She reports occasional symptoms in her right anterior and posterior thigh. Reports neuropathy and RLS symptoms in her bilateral lower extremities. Denies any recent trauma, injury, or falls. She rates current pain 6/10 at rest and 8-10/10 with walking, bending, movements, and cold weather. Patient is interested to pursue formal physical therapy prior considering interventional therapy for her axial and left radicular pain. Denies any fever, abdominal or groin pain, weakness, foot drop, bladder or bowel dysfunction, or saddle anesthesia. PRIOR: Patient presents today for follow up status post recent Bilateral Therapeutic SIJ injections on 01/05/[address] Pike. Patient reports since recent injections, she has increased bilateral leg cramping and spasming, left worse than right. She reports SIJ injections were not helpful as she continues to experience significant low back pain with radicular symptoms. She has been previously seen by her PCP for right calf pain this summer with negative US. Patient reports she suffers from restless leg syndrome and these symptoms have been worsened as well. Patient reports lower back pain with radiation into her bilateral lower extremities anteriorly and posteriorly. Patient reports she has tried to manage her leg cramps with magnesium, meloxicam and muscle relaxants as well as consuming bananas without relief. We will proceed with lumbar spine MRI to assess for for neural integrity and compression as well as check her electrolytes as therapeutic injections can exacerbate preexisting electrolyte changes due to low potassium effects with steroids. Denies any fever, weight loss, bladder or bowel dysfunction or saddle anesthesia. Patient reports she has upcoming Neurology appointment next month for migraines and RLS. PRIOR: Patient presents today for follow up for bilateral low back pain and new right calf pain for one month. Patient continues to endorse bilateral lower back pain with radiation to her buttocks and lateral hips and has been awaiting for insurance approval for bilateral therapeutic SIJ injections. Peer to Peer review was done today over the phone with Dr. Quinteros with clarification that previous injections were only diagnostic, with anesthetic only and no steroids were given. Next step for therapeutic SIJ injections were approved and we will book this accordingly once we receive confirmation. Patient reports right calf pain for one month. Denies any inciting events, injury, falls, or trauma. Pain is localized to right calf with mild tenderness upon light palpation but no swelling, warmth, rash or erythema. Patient denies contacting her PCP or seeking medical evaluation at ER or Urgent clinic for right calf pain. We will order Duplex US of RLE to rule out DVT. Patient is also reports abdominal pain with constipation for almost one week and will reach out to her PCP today. She notes that she might need to increase her fluid intake as well. Denies any recent cough, cold, infection, fever or other significant changes in medical history since last office visit. Patient denies any bladder or bowel incontinence or saddle anesthesia. PRIOR: Patient presents today to assess response to Ganglion Impar Block on 09/29/22 and Bilateral Diagnostic SIJ injections on 10/27/[address] Pike. Patient reports 50% pain relief in coccyx pain since injection and 80% pain relief for 1.5 days since SIJ injections with notable improved mobility, functioning and range of motions. Patient is interested to undergo therapeutic SIJ injections as next step. We also discussed peripheral nerve stimulation and RFA procedures as a longer and more sustained pain relief. Patient also reports increasing daily migraines headaches. She has elevated BP today without diagnosis of hypertension. Patient was encouraged to follow up regarding BP with her provider for further evaluation. I will refer patient to neurology and will obtain brain/head MRI. Denies any recent cough, cold, infection, fever or other significant changes in medical history since last office visit. Past Procedures: 10/27/22: Bilateral Diagnostic SIJ injections-80% pain relief for 1.5 days 09/29/22: Ganglion Impar Block-50% pain relief PRIOR: Patient is a pleasant 57 years old female with a history of lumbar DDD, chronic coccydynia and bilateral sacroiliitis, presents today for initial evaluation of lower back pain and coccyx pain. She attributes her pain generators to traumatic slip and fall injury about 5 years ago. Denies any recent trauma, injury or falls. She has had pain in her tailbone radiating towards her lower back and occasionally into her left leg since fall injury. Pain is constant and described as dull, sore, hurting, aching, heavy, spreading, radiating, piercing and occasionally throbbing. Pain increased with sitting, changing positions, or applying pressure directly to her tailbone. Pain affects her daily activities, she cannot sleep supine due to bilateral rotator cuff pain and has been sleeping in a recliner. Pain has been managed with methocarbamol and occasionally OTC medications with continued symptoms. She uses Donut pillow for pressure relief. Denies any previous injections or spine surgery. She reports completing pelvic physiotherapy in [place] with manipulation of her sacroiliac joints with minimal improvements. Denies fever, weight loss, abdominal or groin pain, vaginal bleeding, prolapse or discharge, bladder or bowel incontinence or saddle anesthesia. Patient is a daily smoker and currently not motivated to quit as she recently lost her dog. [facility] Medical History EUGENIA (iron deficiency anemia) Vitamin D deficiency Restless leg syndrome Depression Plantar fasciitis Osteopenia Migraine Hyperlipidemia DDD (degenerative disc disease), lumbosacral Complete tear of left rotator cuff Carpal tunnel syndrome Surgical History H/O shoulder surgery Social History Alcohol intake: never Patient Tobacco Use Status: Current everyday Tobacco user Tobacco use type: Cigarette Cigarette Packs Per Day: 0.5 Review of Systems Const All systems reviewed & are unremarkable except as noted in HPI and below Neuro Denies Abnormal speech present and Denies Sensory deficit (Neuro) Physical Exam General: Appears afebrile. Alert and oriented. Mood and affect appropriate. Follows and participates in conversation appropriately. Respiratory effort is unlabored. No cough. Able to transition from sit to stand unassisted. Back/Spine/Pelvis Other: Limited lumbar ROM due to pain, lumbar flexion and extension reproduces moderate pain. Painful bilateral facet loading. Cervical Spine: cervical muscular tenderness and No Cervical spine tenderness Thoracic/Lumbar Spine: thoracic and lumbar spine normal to inspection, No Thoracic/lumbar spine scar(s), Lasegue's sign positive on the left and diffuse, pain with thoraco-lumbar ROM, paraspinal muscle tenderness, thoraco-lumbar ROM limited, No thoracic spinal tenderness, lumbar spinal tenderness (L4-S1) and straight leg raise positive (L3-L4 distribution) left at 50 degrees Pelvis: buttock tenderness bilaterally Sacroiliac joints: bilaterally (Ad's and Stinchfield, left>right) tender to palpation Neuro General: moves all extremities, Normal light touch and pain sensation and deep tendon reflexes 2+ bilaterally Cranial nerves: Yes CN's II-XII intact bilaterally Cognition (Neuro): normal cognition Speech: No Abnormal speech present Gait exam (Neuro): Normal gait present and No Assistive device used Motor exam (neuro): 5/5 motor strength present throughout, no tremor noted and Motor abnormalities not present Sensory Exam: No Sensory deficit (Neuro) Extrem General: Yes capillary refill normal, Yes no clubbing, cyanosis or edema and Yes no calf tenderness Results Reviewed Results Reviewed: MR LUMBAR SPINE WITHOUT CONTRAST 03/16/23 CLINICAL INFORMATION: Polyneuropathy. TECHNIQUE: MRI of the lumbar spine was obtained using routine sequences without contrast. FINDINGS: There are 5 nonrib-bearing lumbar-type vertebral bodies. There is grade 1 retrolisthesis of L1 on L2, L2 on L3, and L3 on L4. Small chronic upper endplate Schmorl's nodes at L3 and L4. There are multilevel endplate osteophytes. Vertebral body heights are overall maintained. Is mild Modic type I endplate signal changes at L1-L2 and L2-L3. There are no acute fractures. No significant extraspinal soft tissue findings. Small left renal cyst for which no further imaging follow-up is warranted. L1-L2: Grade 1 retrolisthesis. Small diffuse annular disc bulge. There is no central canal stenosis and there is no significant foraminal stenosis. L2-L3: Grade 1 retrolisthesis. Diffuse annular disc bulge is in part disc osteophyte and mild bilateral facet arthropathy. There is no central canal stenosis. There is mild foraminal encroachment bilaterally. L3-L4: There is a diffuse annular disc bulge is in part disc osteophyte and there is moderate bilateral facet arthropathy and ligamentum flavum thickening. Findings in concert result in mild central canal stenosis, left subarticular zone stenosis with mass effect on the traversing left L4 nerve root, and mild to moderate bilateral foraminal stenosis with a far right lateral disc protrusion resulting in mass effect on the extraforaminal right L3 nerve root. There are a few small synovial cyst along the upper and posterior margin of the right facet joint. L4-L5: Diffuse annular disc bulge and moderate bilateral hypertrophic facet arthropathy. There is no central canal stenosis. Mild to moderate bilateral foraminal stenosis. A right lateral disc protrusion contacts the extraforaminal right L4 nerve root. L5-S1: Diffuse annular disc bulge and left greater then right facet arthropathy. No central canal stenosis. Mild to moderate right and mild left foraminal stenosis. IMPRESSION: - At L3-L4, multifactorial degenerative changes result in mild central canal stenosis, left subarticular zone stenosis with mass effect on the traversing left L4 nerve root, and mild to moderate bilateral foraminal stenosis with a far right lateral disc protrusion resulting in mass effect on the extraforaminal right L3 nerve root. There are a few small synovial cyst along the upper and posterior margin of the right facet joint. - At L4-L5, a right lateral disc protrusion contacts the extraforaminal right L4 nerve root. - Additional degenerative changes as discussed above. Assessment & Plan Assessment & Plan (1) Lumbar radiculopathy: Code(s): M54.16 - Radiculopathy, lumbar region (2) Peripheral neuropathy: Code(s): G62.9 - Polyneuropathy, unspecified (3) Lumbar spondylosis: Code(s): M47.816 - Spondylosis without myelopathy or radiculopathy, lumbar region (4) Sacroiliac joint pain: Code(s): M53.3 - Sacrococcygeal disorders, not elsewhere classified Plan 1. Lumbar spine MRI results were discussed with patient greater detail today. Recommend formal physical therapy for axial and radicular low back pain as well as SIJ pain. Script provided today for [facility] PT per patient's request as this location is closer to her home. 2. Short script provided for oxycodone #20 tabs for moderate-severe pain only. Patient is allergic to tramadol but previously tolerated oxycodone without any side effects and with good tolerance. Side effects and precautions were reviewed with patient. Continue meloxicam and gabapentin as needed. Refill provided for vitamin B2 per patient's request. 3. Follow-up in 1-2 months to see response to physical therapy, if no response to physical therapy will consider further interventional strategy. Discussed left L3-L4 TFESI with light sedation and diagnostic lumbar medial branch blocks for potential Sprint PNS trial. Informational brochure provided to patient today. All questions and concerns have been answered and patient agreed with the plan follow-up after PT and sooner as needed. Orders: Orders PT Evaluation and Treatment Today G62.9 - Polyneuropathy, unspecified, M47.816 - Spondylosis without myelopathy or radiculopathy, lumbar region, M53.3 - Sacrococcygeal disorders, not elsewhere classified, M54.16 - Radiculopathy, lumbar region Medications: New oxycodone Partial Fill upon patient request. 5 mg PO Q12H 10 days PRN 20 tabs 0RF pain (scale score 7-10) M47.816 - Spondylosis without myelopathy or radiculopathy, lumbar region, M53.3 - Sacrococcygeal disorders, not elsewhere classified, M54.16 - Radiculopathy, lumbar region Refilled riboflavin (vitamin B2) 400 mg PO DAILY 30 tabs 6RF for migraine G43.909 - Migraine, unspecified, not intractable, without status migrainosus Coding Level of Care Code Est Pt Level 4 (75317) Diagnoses Lumbar radiculopathy M54.16 Peripheral neuropathy G62.9 Lumbar spondylosis M47.816 Sacroiliac joint pain M53.3
[2023-05-11 09:03] VITALS: PULSE 103; RESP 12; O2SAT 95; BMI 32.1
== END 2023-05-11 09:31 | disposition home or self-care (01) ==
PROVIDERS: PCP Student in an Organized Health Care Education/Training Program; Visit Provider Nurse Practitioner Family
DX: M54.16 Radiculopathy, lumbar region (principal); G62.9 Polyneuropathy, unspecified; M47.816 Spondylosis without myelopathy or radiculopathy, lumbar region; M53.3 Sacrococcygeal disorders, not elsewhere classified
CPT/HCPCS: 99214

== ENCOUNTER → 2023-05-11 08:58 | Outpatient (BNVA) | payer OTHER, SELFPAY | PROVIDERS: PCP Student in an Organized Health Care Education/Training Program; Visit Provider Nurse Practitioner Family | DX: G62.9 Polyneuropathy, unspecified (principal); M47.26 Other spondylosis with radiculopathy, lumbar region; M53.3 Sacrococcygeal disorders, not elsewhere classified | CPT/HCPCS: 99212 ==

== ENCOUNTER 2023-05-31 10:03 | Outpatient (AMB) | payer MEDICARE, MEDICAID, SELFPAY ==
[2023-05-31 10:08] VITALS: BP 130/100; BMI 32.4
--- NOTE | 2023-05-31 10:08 | MHC.OFFVIS ---
Intake Vital Signs 05/31/23 10:08 Height 5 ft 3 in Weight 183 lb BMI 32.4 BP 130/100 H Blood Pressure Location Rt brachial Position Sitting Intake Visit Reasons: 3 mnts f/u/LVM Intake Note: Patient presents for 3 month follow up. no issues or concerns. Allergies Sulfa (Sulfonamide Antibiotics) Allergy (Unknown, Verified 05/31/23 10:12) Rash tramadol Allergy (Unknown, Verified 05/31/23 10:12) Itching Medication List - Last Reconciled 05/31/23 by LYRIC Puente amitriptyline 10 - 20 mg (1 - 2 x 10 mg) PO BEDTIME 30 days citalopram 20 mg PO DAILY gabapentin 300 mg PO BID 30 days lidocaine 5% 1 patch topical DAILY losartan 25 mg PO DAILY magnesium glycinate 200 mg (2 x 100 mg) PO DAILY 30 days meloxicam 15 mg PO DAILY PRN methocarbamol 750 mg PO BEDTIME PRN ondansetron 4 mg PO Q8H PRN 2 days oxycodone 5 mg PO Q12H PRN 10 days pramipexole 0.75 mg PO BEDTIME propranolol ER 60 mg PO BEDTIME 30 days riboflavin (vitamin B2) 400 mg PO DAILY ubrogepant (Ubrelvy) 50 - 100 mg (0.5 - 1 x 100 mg) PO ONCE PRN 30 days HPI HPI Comments History of Present Illness Details 58-yr-old female presents for f/u visit. Pt denies any significant interval medical changes. Recently started on Losartan for HTN. Her HST showed mild HST w/ AHI 9.5/hr w/ O2 joseph 85% and avergae SpO2 92%. Pt reports restless legs are stable on Pramipexole 0.75mg q evening. She is still prone to fall asleep and then wakes up after 30 minutes and has difficulty falling back asleep. Sleeping from 1-2 am until 7am. She does tend to sleep in prone position. Still prone to waking up with a migraine most mornings. Sometimes it is so bothersome she does not want to get up to take her as needed med. So, now is keeping her as needed med at her bedside. Usually Amitriptyline at bedtime at times. Initially, did not find the Ubrlevy helpful, but the last few doses have been more effective. At times takes the Excedrin at night. Has started PT for her back- which is aggravating her back. Baseline headache characteristics: Mod-Severe. Wakes up in the morning when she opens her eyes with holocranial, pounding, throbbing, pressure headache a/w Photophobia, phonophobia, osmophobia, nausea, tiredness, Current number of typical migraine days per month: Daily in am Average painfulness of these migraines: Mod-severe Current number of days of acute medication use per month: Daily Previous number of migraine days per month prior to starting current preventive tx: Daily PFSH Medical History EUGENIA (iron deficiency anemia) Vitamin D deficiency Restless leg syndrome Depression Plantar fasciitis Osteopenia Migraine Hyperlipidemia DDD (degenerative disc disease), lumbosacral Complete tear of left rotator cuff Carpal tunnel syndrome Surgical History H/O shoulder surgery Social History Alcohol intake: never Patient Tobacco Use Status: Current everyday Tobacco user Tobacco use type: Cigarette Cigarette Packs Per Day: 0.5 Physical Exam Vital Signs: Last Vital Signs BP 130/100 H 05/31/23 10:08 BMI result Body Mass Index 32.4 Const General: cooperative and no acute distress Orientation/consciousness: patient oriented x3 Resp Effort & Inspection: normal respiratory effort and able to speak in complete sentences Neuro General: patient oriented x3 Cranial nerves: Yes CN's II-XII intact bilaterally Cognition (Neuro): normal cognition Psych Appearance: grossly normal Mental Status: mental status grossly normal Speech and movement: Normal speech and movement present Affect: normal affect Attitude: cooperative Assessment & Plan Assessment & Plan (1) Migraine with aura: Code(s): G43.109 - Migraine with aura, not intractable, without status migrainosus (2) Mild obstructive sleep apnea: Code(s): G47.33 - Obstructive sleep apnea (adult) (pediatric) (3) Restless leg syndrome: Code(s): G25.81 - Restless legs syndrome Plan Reviewed HST- results c/w mild JORDAN w/ AHI 9.5/hr, O2 joseph 85%, average SpO2 92%. Discussed that although JORDAN is mild, she is having am headaches and elevated BP, which can be seen in untreated JORDAN. Start APAP 5-20 cmH2O nightly > 4 hrs, in hopes this improves sleep, BP control, and am headaches. APAP order written today. ? For tremor, RLS, muscle spasm s/s: Reviewed labs to assess for muscle spasms, RLS- WNL. Continue Pramipexole 0.75mg qhs. ? For overall headache management: Continue to optimize good self-care, including but not limited to maintaining a healthy diet, adequate fluid intake, adequate sleep, and engaging in regular physical activity. Track headaches- will give migraine diary to monitor effect of acute and prvenetive tx's. ? For acute headache treatment: Continue Ubrogepant (Ubrelvy) 100mg tab, 1/2 - 1 tab (50-100mg) at onset of headache, may repeat in 2 hours. Max of 2 tabs (200mg) per 24 hours. May adjunct with OTC Tylenol 650mg q 4 hours, Ibuprofen 600mg q 6 hours, or Naproxen 440mg q 12 hrs prn. . Try to decrease Excedrin use- avoid using Excedrin in evening/night. Previous acute migraine medication trials: Excedrin. Acute migraine medication contraindications: Triptans d/t HTN. ? For headache prevention medication: Continue Riboflavin 400mg qam Continue Magnesium 400mg qhs Hold Amitriptyline 10-20mg qhs- as not taking consistently. Trial adding Propranolol ER 60mg qhs- in hopes this helps HTN, sleep, and am headache. Monitor for orthostatic lightheadedness, hypotension. Pt has PCP f/u on Wed. Reviewed potential adverse effects of TCAs, including but not limited to fatigue, cardiac arrhythmias, mood changes. Previous migraine prevention medication trials: No other Migraine prevention medication contraindications: None at this time ? ? Pt to follow-up in 3-4 months or sooner prn. Medications: New propranolol ER 60 mg PO BEDTIME 30 days 30 caps 3RF Coding Level of Care Code Est Pt Level 4 (06423) Diagnoses Migraine with aura G43.109 Mild obstructive sleep apnea G47.33 Restless leg syndrome G25.81
== END 2023-05-31 11:06 | disposition home or self-care (01) ==
PROVIDERS: PCP Student in an Organized Health Care Education/Training Program; Visit Provider Nurse Practitioner Family
DX: G43.109 Migraine with aura, not intractable, without status migrainosus (principal); G47.33 Obstructive sleep apnea (adult) (pediatric); G25.81 Restless legs syndrome
CPT/HCPCS: 99214

== ENCOUNTER → 2023-05-31 10:03 | Outpatient (BNVA) | payer MEDICARE, MEDICAID, SELFPAY | PROVIDERS: PCP Student in an Organized Health Care Education/Training Program; Visit Provider Nurse Practitioner Family | DX: G43.109 Migraine with aura, not intractable, without status migrainosus (principal); G47.33 Obstructive sleep apnea (adult) (pediatric); G25.81 Restless legs syndrome | CPT/HCPCS: 99212 ==

== ENCOUNTER 2023-06-21 08:23 | Outpatient (AMB) | payer MEDICARE, MEDICAID, SELFPAY ==
--- NOTE | 2023-06-21 08:30 | A.OFFVIS_ITS ---
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 Patient reports she has one more week to complete PT. She states PT made her pain and symptoms worse. She now reports of neck pain radiating into her left shoulder and states previous left rotator cuff surgery x2. Patient reports low back pain remains her troublesome area with radicular symptoms, more to the right anterior thigh and intermittently to the left anterior thigh. She notes knee pain with walking as well. Denies any recent trauma, injury or falls. Pain negatively affects her daily functioning, activities, sleep, mood and quality of life. Patient also reports chronic coccyx pain of 6 years due to a slip and fall accident. She underwent ganglion impar block with 50% pain relief. Today, she is sitting to the side and offloading her coccyx pressure and notes that cushion relief pillows or pads have not been effective. Her coccyx xray was unremarkable in 08/2022. We will proceed with CT scan to further evaluate her coccyx pain. Patient is interested to proceed with diagnostic lumbar medial branch blocks and transforaminal epidural steroid injections as next steps for her ongoing symptoms. Denies any fever, abdominal or groin pain, weakness, foot drop, bladder or bowel dysfunction, or saddle anesthesia. Past Procedures: 10/27/22: Bilateral Diagnostic SIJ injec tions-80% pain relief for 1.5 days 09/29/22: Ganglion Impar Block-50% pain relief PRIOR: Patient is a pleasant 57 years old female with a history of lumbar DDD, chronic coccydynia and bilateral sacroiliitis, presents today for initial evaluation of lower back pain and coccyx pain. She attributes her pain generators to traumatic slip and fall injury about 5 years ago. Denies any recent trauma, injury or falls. She has had pain in her tailbone radiating towards her lower back and occasionally into her left leg since fall injury. Pain is constant and described as dull, sore, hurting, aching, heavy, spreading, radiating, piercing and occasionally throbbing. Pain increased with sitting, changing positions, or applying pressure directly to her tailbone. Pain affects her daily activities, she cannot sleep supine due to bilateral rotator cuff pain and has been sleeping in a recliner. Pain has been managed with methocarbamol and occasionally OTC medications with continued symptoms. She uses Donut pillow for pressure relief. Denies any previous injections or spine surgery. She reports completing pelvic physiotherapy in [place] with manipulation of her sacroiliac joints with minimal improvements. Denies fever, weight loss, abdominal or groin pain, vaginal bleeding, prolapse or discharge, bladder or bowel incontinence or saddle anesthesia. Patient is a daily smoker and currently not motivated to quit as she recently lost her dog. [facility] Medical History EUGENIA (iron deficiency anemia) Vitamin D deficiency Restless leg syndrome Depression Plantar fasciitis Osteopenia Migraine Hyperlipidemia DDD (degenerative disc disease), lumbosacral Complete tear of left rotator cuff Carpal tunnel syndrome Surgical History H/O shoulder surgery Social History Alcohol intake: never Patient Tobacco Use Status: Current everyday Tobacco user Tobacco use type: Cigarette Cigarette Packs Per Day: 0.5 Review of Systems Const All systems reviewed & are unremarkable except as noted in HPI and below Neuro Denies Abnormal speech present and Denies Sensory deficit (Neuro) Physical Exam Vital Signs: Last Vital Signs Pulse 84 06/21/23 08:33 BP 180/84 H 06/21/23 08:33 Pulse Ox 96 06/21/23 08:33 Oxygen Delivery Method Room Air 06/21/23 08:33 BMI result Body Mass Index 33.7 General: Appears afebrile. Alert and oriented. Mood and affect appropriate. Follows and participates in conversation appropriately. Respiratory effort is unlabored. No cough. Able to transition from sit to stand unassisted. Back/Spine/Pelvis Other: Limited lumbar ROM due to pain, lumbar flexion and extension reproduces moderate pain. Painful bilateral facet loading, right>left. Cervical Spine: cervical muscular tenderness, pain with cervical ROM, cervical spasm (right) and No Cervical spine tenderness Thoracic/Lumbar Spine: thoracic and lumbar spine normal to inspection, No Thoracic/lumbar spine scar(s), Lasegue's sign positive bilateral and diffuse, pain with thoraco-lumbar ROM, paraspinal muscle tenderness, thoraco-lumbar ROM limited, Thoracic/lumbar scoliosis, No thoracic spinal tenderness, lumbar spinal tenderness (L4-S1) and straight leg raise positive bilateral at 50 degrees Pelvis: buttock tenderness bilaterally Sacroiliac joints: bilaterally (Ad's and Stinchfield, left>right) tender to palpation Sacrum: tenderness Coccyx: Coccyx tenderness present Neuro General: moves all extremities, Normal light touch and pain sensation and deep tendon reflexes 2+ bilaterally Cranial nerves: Yes CN's II-XII intact bilaterally Cognition (Neuro): normal cognition Speech: No Abnormal speech present Gait exam (Neuro): Normal gait present and No Assistive device used Motor exam (neuro): 5/5 motor strength present throughout, no tremor noted and Motor abnormalities not present Sensory Exam: No Sensory deficit (Neuro) Extrem General: Yes capillary refill normal, Yes no clubbing, cyanosis or edema and Yes no calf tenderness Right upper extremity: shoulder/upper arm Details: normal to inspection, tenderness (anterior and posterior aspects) and normal ROM; no swelling Results Reviewed Results Reviewed: MR LUMBAR SPINE WITHOUT CONTRAST 03/16/23 CLINICAL INFORMATION: Polyneuropathy. TECHNIQUE: MRI of the lumbar spine was obtained using routine sequences without contrast. FINDINGS: There are 5 nonrib-bearing lumbar-type vertebral bodies. There is grade 1 retrolisthesis of L1 on L2, L2 on L3, and L3 on L4. Small chronic upper endplate Schmorl's nodes at L3 and L4. There are multilevel endplate osteophytes. Vertebral body heights are overall maintained. Is mild Modic type I endplate signal changes at L1-L2 and L2-L3. There are no acute fractures. No significant extraspinal soft tissue findings. Small left renal cyst for which no further imaging follow-up is warranted. L1-L2: Grade 1 retrolisthesis. Small diffuse annular disc bulge. There is no central canal stenosis and there is no significant foraminal stenosis. L2-L3: Grade 1 retrolisthesis. Diffuse annular disc bulge is in part disc osteophyte and mild bilateral facet arthropathy. There is no central canal stenosis. There is mild foraminal encroachment bilaterally. L3-L4: There is a diffuse annular disc bulge is in part disc osteophyte and there is moderate bilateral facet arthropathy and ligamentum flavum thickening. Findings in concert result in mild central canal stenosis, left subarticular zone stenosis with mass effect on the traversing left L4 nerve root, and mild to moderate bilateral foraminal stenosis with a far right lateral disc protrusion resulting in mass effect on the extraforaminal right L3 nerve root. There are a few small synovial cyst along the upper and posterior margin of the right facet joint. L4-L5: Diffuse annular disc bulge and moderate bilateral hypertrophic facet arthropathy. There is no central canal stenosis. Mild to moderate bilateral foraminal stenosis. A right lateral disc protrusion contacts the extraforaminal right L4 nerve root. L5-S1: Diffuse annular disc bulge and left greater then right facet arthropathy. No central canal stenosis. Mild to moderate right and mild left foraminal stenosis. IMPRESSION: - At L3-L4, multifactorial degenerative changes result in mild central canal stenosis, left subarticular zone stenosis with mass effect on the traversing left L4 nerve root, and mild to moderate bilateral foraminal stenosis with a far right lateral disc protrusion resulting in mass effect on the extraforaminal right L3 nerve root. There are a few small synovial cyst along the upper and posterior margin of the right facet joint. - At L4-L5, a right lateral disc protrusion contacts the extraforaminal right L4 nerve root. - Additional degenerative changes as discussed above. XR LUMBOSACRAL SPINE 08/17/22 FINDINGS: There is bony demineralization. There is a moderate thoracolumbar levoscoliosis. At T12-L1 and L1-L2, there is moderately severe rightward disc space narrowing. At L2-L3, there is mild disc space narrowing at a 4 mm retrolisthesis. The remaining disc spaces are relatively well-maintained. No acute fracture or spondylolisthesis is seen. There is no instability with flexion or extension. There is multi-level thoracolumbar spondylosis. The posterior elements are intact. There is facet arthropathy, most pronounced at L5-S1. The paravertebral soft tissues are unremarkable. IMPRESSION: 1. There is a moderate thoracolumbar levoscoliosis. 2. There is moderately severe degenerative disc disease at T12-L1 and L1-L2., And mild degenerative disc disease is seen at L2-L3. 3. No significant instability is seen with flexion or extension. 4. There is multi-level lumbar spondylosis and facet arthropathy. XR SACRUM AND COCCYX 08/17/22 FINDINGS: There are no fractures. No bone, joint or soft tissue abnormality is demonstrated. IMPRESSION: Unremarkable examination. Assessment & Plan Assessment & Plan (1) Coccydynia: Code(s): M53.3 - Sacrococcygeal disorders, not elsewhere classified (2) Sacroiliac joint pain: Code(s): M53.3 - Sacrococcygeal disorders, not elsewhere classified (3) Lumbar spondylosis: Code(s): M47.816 - Spondylosis without myelopathy or radiculopathy, lumbar region (4) Lumbar radiculopathy: Code(s): M54.16 - Radiculopathy, lumbar region (5) DDD (degenerative disc disease), lumbosacral: Code(s): M51.37 - Other intervertebral disc degeneration, lumbosacral region Plan 1. Schedule for Bilateral Diagnostic L3-L4 DR L5 MBB with local and fluoroscopy for axial low back pain. Expectations, risks and benefits were reviewed. Patient is aware she will be contacted to schedule this procedure. 2. For radicular pain, we will tentatively plan for Bilateral L3-L4 TFESI with light sedation and fluoroscopy. 3. CT scan sacrum for chronic coccydynia. All questions and concerns have been answered and patient agreed with the plan. Follow up after injections and sooner if needed. Anticoagulation: Patient not on anticoagulant Justification for interventional therapy: ? Patient with average pain > 6/10 ? Patient has exhausted conservative therapy, NSAIDs, pelvic floor physical therapy, PT The risks, consequences, alternatives, and benefits of various treatment options were discussed with the patient in great detail, including conservative management, injections and procedures. I informed her of the hyperglycemic effects of steroids. Orders: Orders CT sacrum Today M53.3 - Sacrococcygeal disorders, not elsewhere classified Coding Level of Care Code Est Pt Level 4 (35903) Diagnoses Coccydynia M53.3 Sacroiliac joint pain M53.3 Lumbar spondylosis M47.816 Lumbar radiculopathy M54.16 DDD (degenerative disc disease), lumbosacral M51.37
[2023-06-21 08:33] VITALS: BP 180/84; PULSE 84; O2SAT 96; BMI 33.7
== END 2023-06-21 08:46 | disposition home or self-care (01) ==
PROVIDERS: PCP Student in an Organized Health Care Education/Training Program; Visit Provider Nurse Practitioner Family
DX: M53.3 Sacrococcygeal disorders, not elsewhere classified (principal); M47.816 Spondylosis without myelopathy or radiculopathy, lumbar region; M54.16 Radiculopathy, lumbar region; M51.37 Other intervertebral disc degeneration, lumbosacral region
CPT/HCPCS: 99214

== ENCOUNTER → 2023-06-21 08:23 | Outpatient (BNVA) | payer MEDICARE, MEDICAID, SELFPAY | PROVIDERS: PCP Student in an Organized Health Care Education/Training Program; Visit Provider Nurse Practitioner Family | DX: M53.3 Sacrococcygeal disorders, not elsewhere classified (principal); M47.816 Spondylosis without myelopathy or radiculopathy, lumbar region; M54.16 Radiculopathy, lumbar region; M51.37 Other intervertebral disc degeneration, lumbosacral region | CPT/HCPCS: 99212 ==

== ENCOUNTER 2023-07-24 10:33 | Emergency (ER) | payer MEDICARE, MEDICAID, SELFPAY ==
--- NOTE | ~2023-07-24 | CT_ITS ---
CT LUMBAR SPINE WITHOUT CONTRAST CLINICAL INFORMATION: Low back pain. COMPARISON: Lumbar spine MRI 03/16/2023. TECHNIQUE: Multidetector CT acquisition of the lumbar spine is obtained without contrast. This CT examination was performed using dose optimization techniques as appropriate, variously including the following: *Automated exposure control *Adjustment of mA and/or kV according to patient size (this includes techniques or standardized protocols for targeted exams where dose is matched to indication/reason for exam; i.e. extremities or head) *Use of iterative reconstruction technique FINDINGS: There is an acute appearing upper endplate compression fracture at L5 exhibiting 20% upper endplate height loss and no significant retropulsion. No additional acute fractures. The remaining lumbar vertebral body heights are maintained. There are multilevel endplate osteophytes. Disc volumes are preserved. Leftward convex lumbar scoliosis. There is sigmoid diverticulosis. Fat-containing inguinal hernias bilaterally. Aortoiliac atherosclerotic calcification. Multilevel degenerative disc disease and facet arthropathy throughout the lumbar spine. Right lateral disc osteophyte protrusions at L1-L2 and L2-L3 result in mild right-sided foraminal encroachment at both of these levels and probable mass effect on the extraforaminal right L2 nerve root at L2-L3. At L3-L4, there is a diffuse annular disc bulge and there is bilateral facet arthropathy and ligamentum flavum thickening contributing to bilateral subarticular zone stenosis. A right lateral disc protrusion likely compresses the exiting right L3 nerve root. At L4-L5, a right lateral disc protrusion likely results in mass effect on the extraforaminal right L4 nerve root and spondylitic changes result in moderate bilateral foraminal stenosis. CT/CT lumbar spine wo IV con IMPRESSION: - There is an acute appearing upper endplate compression fracture at L5 exhibiting 20% upper endplate height loss and no significant retropulsion. No additional acute fractures. - At L3-L4, there is a diffuse annular disc bulge and there is bilateral facet arthropathy and ligamentum flavum thickening contributing to bilateral subarticular zone stenosis. A right lateral disc protrusion likely compresses the exiting right L3 nerve root. - At L4-L5, a right lateral disc protrusion likely results in mass effect on the extraforaminal right L4 nerve root and spondylitic changes result in moderate bilateral foraminal stenosis. - Right lateral disc osteophyte protrusions at L1-L2 and L2-L3 result in mild right-sided foraminal encroachment at both of these levels and probable mass effect on the extraforaminal right L2 nerve root at L2-L3.
[2023-07-24 10:50] VITALS: BP 156/93; PULSE 85; RESP 16; TEMP 36.2; O2SAT 99; BMI 31.9
--- NOTE | 2023-07-24 11:11 | ED_ITS ---
HPI - Back Pain/Injury General Chief Complaint: Back Pain/Injury Stated Complaint: back pain Time Seen by Provider: 07/24/23 11:10 Source: patient, RN notes reviewed and old records reviewed Mode of arrival: ambulatory Limitations: no limitations History of Present Illness HPI Narrative: 58 year old female with pmhx significant for lumbosacral degenerative disc disease, lumbar spondylosis, lumbar radiculopathy, SI joint pain, chronic coccydynia, peripheral neuropathy, restless leg syndrome, tobacco dependence, and migraines presents to the ED today for evaluation acute on chronic low back pain x1 week. Patient admits that on bending over about 1 week ago she felt a pop in her lower back. She has had constant right low back pain since. Her chronic back pain has been followed by pain management for 5 years now and she reports multiple interventions. Denies numbness/tingling/weakness down the right or left LE, saddle anesthesia, bowel or bladder incontinence or retention, dysuria, hematuria, flank pain. Denies history of IV drug use. Related Data Home Medications Medication Instructions Recorded Confirmed citalopram 20 mg tablet 20 mg PO DAILY 10/29/22 05/31/23 methocarbamol 750 mg tablet 750 mg PO BEDTIME PRN muscle spasm 10/29/22 05/31/23 pramipexole 0.75 mg tablet 0.75 mg PO BEDTIME 10/29/22 05/31/23 losartan 25 mg tablet 25 mg PO DAILY 05/11/23 05/31/23 hydroxyzine HCl 25 mg tablet 25 mg PO TID 06/21/23 Previous Rx's Medication Instructions Recorded magnesium glycinate 100 mg tablet 200 mg (2 x 100 mg) PO DAILY 10/29/22 migraine headache 30 days #60 tabs lidocaine 5 % topical patch 1 patch topical DAILY for pain #30 12/11/22 patches ondansetron 4 mg disintegrating 4 mg PO Q8H PRN nausea and 01/05/23 tablet vomiting 2 days #10 tabs ubrogepant 100 mg tablet (Ubrelvy) 50 - 100 mg (0.5 - 1 x 100 mg) PO 02/12/23 ONCE PRN migraine headache 30 days #16 tabs gabapentin 300 mg capsule 300 mg PO BID for pain 30 days #60 04/27/23 caps oxycodone 5 mg tablet 5 mg PO Q12H PRN pain (scale score 01/02/24 7-10) 10 days #20 tabs riboflavin (vitamin B2) 400 mg 400 mg PO DAILY for migraine #30 05/11/23 tablet tabs propranolol 60 mg capsule,24 60 mg PO BEDTIME 30 days #30 caps 05/31/23 hr,extended release amitriptyline 10 mg tablet 10 - 20 mg (1 - 2 x 10 mg) PO 06/11/23 BEDTIME for pain 30 days #60 tabs meloxicam 15 mg tablet 15 mg PO DAILY PRN for pain #30 06/24/23 tabs lidocaine 5 % topical patch 1 patch topical DAILY #15 ea 07/24/23 (Lidoderm) Allergies Allergy/AdvReac Type Severity Reaction Status Date / Time Sulfa (Sulfonamide Allergy Unknown Rash Verified 06/21/23 08:34 Antibiotics) tramadol Allergy Unknown Itching Verified 06/21/23 08:34 Review of Systems Review of Systems: Constitutional: No fever, chills, fatigue, night sweats, weight changes ENT/Mouth: No ear pain, hearing loss, nasal congestion, sinus pain, rhinorrhea, sore throat Eyes: No eye pain, swelling, redness, vision changes, discharge Cardio: No chest pain, palpitations, MORENO, orthopnea, peripheral edema Pulm: No SOB, cough, sputum, wheezing, dyspnea, hemoptysis GI: No nausea, vomiting, hematemesis, abdominal pain, diarrhea, constipation, hematochezia, melena : No irregular bleeding, dysuria, frequency, urgency, hesitancy, hematuria, flank pain, urinary flow changes, urinary incontinence or retention MSK: +back pain, No neck pain, joint pain, myalgias Skin: No lesions, rashes Neuro: No weakness, numbness, paresthesias, LOC, dizziness, headache All other systems reviewed and are negative. [facility] Past Medical History Attestation statement: The following information was validated with the patient. Source: old records reviewed and nursing notes reviewed Medical History EUGENIA (iron deficiency anemia) Vitamin D deficiency Restless leg syndrome Depression Plantar fasciitis Osteopenia Migraine Hyperlipidemia DDD (degenerative disc disease), lumbosacral Complete tear of left rotator cuff Carpal tunnel syndrome Surgical History H/O shoulder surgery Social History Social History Alcohol intake: never Patient Tobacco Use Status: Current everyday Tobacco user Tobacco use type: Cigarette Cigarette Packs Per Day: 0.5 Physical Exam Vital Signs: Vital Signs: Last Vital Signs Temp 97.8 F 07/24/23 16:37 Pulse 76 07/24/23 16:37 Resp 18 07/24/23 16:37 BP 157/87 H 07/24/23 16:37 Pulse Ox 97 07/24/23 16:37 O2 Del Method Room Air 07/24/23 16:37 BMI result Body Mass Index 31.9 Patient hypertensive, vitals otherwise WNL Const: Other: + uncomfortable appearing, lying on left side due to pain General: cooperative, healthy appearing, comfortable, no acute distress, alert and awake Orientation/consciousness: patient oriented x3 Limitations: no limitations HEENT: Head: Yes normal to inspection, Yes normocephalic and Yes atraumatic Eyes: General: appearance normal, both eyes and all related structures Conjunctivae: conjunctivae normal Sclerae: sclerae normal Pupils: Equal, round and reactive pupils present EOM: EOMs intact bilaterally Neck: Other: + no cervical midline spinous tenderness or step-off deformity. Neck: Yes normal visual inspection, Yes full ROM and Yes no meningeal signs Resp: Effort & Inspection: normal respiratory effort and able to speak in complete sentences Auscultation: clear to auscultation bilaterally Cardio: Rate: regular rate Rhythm: regular rhythm GI: Inspection: Yes normal to inspection Palpation (GI): Soft to palpation and nontender : General: Yes no CVA tenderness Back/Spine/Pelvis: Other: + slight midline spinous tenderness over lumbar spine without palpable step-off deformity. There is right lumbar paraspinal muscle tenderness to palpation without palpable mass. no overlying skin changes. no warmth. Back: no CVA tenderness Skin: General skin exam: no rashes or lesions noted Neuro: Other: Strength 5/5 intact throughout.? No saddle anesthesia.? Sensation intact to light touch.? Neurovascular intact distally.? 2+ patellar DTRs bilaterally. General: patient oriented x3 and no meningeal signs Cranial nerves: Yes Equal, round and reactive pupils present Gait exam (Neuro): Antalgic gait present (Secondary to discomfort) Motor exam (neuro): 5/5 motor strength present throughout Deep tendon reflexes (DTR's): Right patellar reflex intensity grade: 2+ and Left patellar reflex intensity grade: 2+ Extrem: General: Yes normal to inspection and Yes full ROM Course Course Course Narrative: 1600-- On chart review of pain management notes, she was last evaluated 1 month ago on 06/21/23. She has a low back disability score of 29 indicating severe disability. She has a 6 year history of chronic coccyx pain status post slip and fall. She is received multiple interventions, most recently physical therapy and fluoroscopy. She currently has upcoming TFESI with light sedation and diagnostic lumbar medial branch blocks scheduled. CT scan of lumbar spine without contrast shows an acute appearing upper endplate compression fracture L5 exhibiting 20% upper endplate height loss with no s ignificant retropulsion > this correlates to exam findings and point tenderness. At L3-L4 there is diffuse annular disc bulging and bilateral facet arthropathy with ligamentum flavum thickening contributing to bilateral subarticular zone stenosis. Right lateral disc protrusion likely compresses the exiting right L3 nerve root. At L4-L5 a right lateral disc protrusion with likely mass effect on extraforaminal right L4 nerve root and spondylitic changes resulting in moderate bilateral foraminal stenosis. There is right lateral disc osteophyte protrusion at L1-L2 and L2-L3 resulting in mild right-sided foraminal encroachment of both of these levels and probable mass effect on the extraforaminal right L2 nerve root at L2-L3. > I compared all of these findings to lumbar spine MRI obtained on 03/16/23. All findings are chronic and unchanged accept the compression fracture at L5. > these findings were discussed with my attending physician, Dr. Echevarria, who advises pain control and outpatient follow-up. > I reached out to Dr. Bird (diagnostic assistant professor of radiology) regarding recommendation (i.e kyphoplasty) however did not hear back. CT scan findings discussed with the patient. She is aware of all chronic findings. I informed her of new compression fracture at L5. Discussed treatment options. As she currently follows with pain management, I am unable to send her home with opioid pain medication. She is aware of this and verbalizes understanding. I will give her 1 dose of Dilaudid in the ED. I advised her to call her pain management doctor on Wednesday morning regarding this visit. Will send lidocaine patches to pharmacy. Patient has remained stable throughout ED visit today. Discussed worrisome signs and symptoms and when to return to the ED. All questions answered at this time. Patient is agreeable with disposition and stable for discharge. Her family member at bedside will be giving her a ride home today. Medications Administered Discontinued Medications Generic Name Dose Route Start Last Admin Trade Name Reina PRN Reason Stop Dose Admin Acetaminophen 975 mg 07/24/23 11:42 07/24/23 11:58 Acetaminophen 325 Mg Tablet PO 07/24/23 11:43 975 mg ONCE ONE Administration Cyclobenzaprine HCl 10 mg 07/24/23 11:42 07/24/23 11:58 Cyclobenzaprine Hcl 10 Mg Tablet PO 07/24/23 11:43 10 mg ONCE ONE Administration Hydromorphone HCl 0.5 mg 07/24/23 16:12 07/24/23 16:34 Hydromorphone Hcl 0.5 Mg/0.5 Ml Syringe IM 07/24/23 16:13 0.5 mg ONCE ONE Administration Protocol Lidocaine 1 patch 07/24/23 11:42 07/24/23 11:58 Lidocaine 4 % Patch Adh..Patch TRANSDERMA 07/24/23 11:43 1 patch ONCE ONE Administration Protocol Medical Decision Making Medical Decision Making MDM Narrative: 58 year old female with pmhx significant for lumbosacral degenerative disc disease, lumbar spondylosis, lumbar radiculopathy, SI joint pain, chronic coccydynia, peripheral neuropathy, restless leg syndrome, tobacco dependence, and migraines presents to the ED today for evaluation acute on chronic low back pain x1 week. She is nontoxic-appearing and in no acute distress. In obvious discomfort, lying on her left side due to pain. Antalgic gait. slight midline spinous tenderness over lumbar spine without palpable step-off deformity. There is right lumbar paraspinal muscle tenderness to palpation without palpable mass. no overlying skin changes. no warmth. 2+ patellar DTRs intact bilaterally. Sensation intact throughout. Strength 5/5 intact throughout. No saddle anesthesia. 2+ DP/PT pulses bilaterally. Differential diagnosis includes lumbar sprain/strain, fracture, subluxation, disc herniation, sciatica. Lower suspicion for cord compression, cauda equina, Guillain-[place], epidural abscess. Plan for imaging and pain control. Differential Diagnosis Differential Diagnoses: The differential diagnosis associated with the presentation includes as above Admission/Observation Not indicated. Independent Interpretation I performed an independent interpretation of an: CT Scan Interpretation: I have reviewed CT scan and appreciate compression deformity at L5, agree with radiologist's interpretation. Radiology Impression Discussion of test interpretation with radiology: I have reviewed the radiologist's reading. Radiologist Impression: CT LUMBAR SPINE WITHOUT CONTRAST CLINICAL INFORMATION: Low back pain. COMPARISON: Lumbar spine MRI 03/16/2023. TECHNIQUE: Multidetector CT acquisition of the lumbar spine is obtained without contrast. This CT examination was performed using dose optimization techniques as appropriate, variously including the following: *Automated exposure control *Adjustment of mA and/or kV according to patient size (this includes techniques or standardized protocols for targeted exams where dose is matched to indication/reason for exam; i.e. extremities or head) *Use of iterative reconstruction technique FINDINGS: There is an acute appearing upper endplate compression fracture at L5 exhibiting 20% upper endplate height loss and no significant retropulsion. No additional acute fractures. The remaining lumbar vertebral body heights are maintained. There are multilevel endplate osteophytes. Disc volumes are preserved. Leftward convex lumbar scoliosis. There is sigmoid diverticulosis. Fat-containing inguinal hernias bilaterally. Aortoiliac atherosclerotic calcification. Multilevel degenerative disc disease and facet arthropathy throughout the lumbar spine. Right lateral disc osteophyte protrusions at L1-L2 and L2-L3 result in mild right-sided foraminal encroachment at both of these levels and probable mass effect on the extraforaminal right L2 nerve root at L2-L3. At L3-L4, there is a diffuse annular disc bulge and there is bilateral facet arthropathy and ligamentum flavum thickening contributing to bilateral subarticular zone stenosis. A right lateral disc protrusion likely compresses the exiting right L3 nerve root. At L4-L5, a right lateral disc protrusion likely results in mass effect on the extraforaminal right L4 nerve root and spondylitic changes result in moderate bilateral foraminal stenosis. CT/CT lumbar spine wo IV con IMPRESSION: - There is an acute appearing upper endplate compression fracture at L5 exhibiting 20% upper endplate height loss and no significant retropulsion. No additional acute fractures. - At L3-L4, there is a diffuse annular disc bulge and there is bilateral facet arthropathy and ligamentum flavum thickening contributing to bilateral subarticular zone stenosis. A right lateral disc protrusion likely compresses the exiting right L3 nerve root. - At L4-L5, a right lateral disc protrusion likely results in mass effect on the extraforaminal right L4 nerve root and spondylitic changes result in moderate bilateral foraminal stenosis. - Right lateral disc osteophyte protrusions at L1-L2 and L2-L3 result in mild right-sided foraminal encroachment at both of these levels and probable mass effect on the extraforaminal right L2 nerve root at L2-L3. External Record Review External record reviewed: Inpatient record, Office record, Outpatient record, Prior outpatient labs, Prior outpatient radiology, Primary care record and Out side ED record Prescription Management I considered prescription management with: Pain Medication and Other (Muscle relaxer, steroid) Chronic Conditions Patient?s care impacted by: Other (Degenerative disc disease, lumbar radiculopathy, coccydynia, SI joint dysfunction) Social Determinants Patient?s care significantly limited by Social Determinants of Health including: Other Social Determinant of Health Critical Care Time Critical Care Time Critical Care Time: Yes Total Critical Care Time: 40 Attestation: Critical care time in the amount of 40 minutes has been provided to the patient in terms of direct patient care, frequent reevaluation, review and interpretation of medical data and results, and management of potentially life- threatening conditions. This is all outside of any medical procedures. Discharge Plan Discharge Clinical Impression: Closed compression fracture of L5 vertebra Patient Disposition: Home, Self-Care Instructions: Osteoporosis (ED), Vertebral Compression Fracture (ED), Acute Low Back Pain (ED), Vertebroplasty (DC), Procedures for Compression Fractures of the Spine (DC) Additional Instructions: As discussed, CT scan of your lumbar spine shows a new compression fracture at L 5. These findings were discussed with the you. You have been provided with a referral to our neurospine surgeon. You may call them to schedule an appointment. We are unable to send you home with opioid pain medication as you are on a pain contract. Please keep your appointment with your pain management doctor this upcoming week. They will be able to further treat your pain. Take Tylenol and ibuprofen as needed. Lidocaine patches have been sent to your pharmacy. You may apply these to your back to help with pain/discomfort. For new or worsening symptoms please return to the ED. The case of an emergency call 911. Prescriptions: New lidocaine [Lidoderm] 5 % adhesive patch,medicated 1 patch topical DAILY Qty: 15 0RF Rx Instructions: leave on most painful area for up to 12 hrs No Action lidocaine 5 % adhesive patch,medicated 1 patch topical DAILY Qty: 30 5RF Ubrelvy 100 mg tablet 50 - 100 mg PO ONCE PRN (Reason: migraine headache) 30 Days Qty: 16 3RF Rx Instructions: take at onset of migraine, may repeat in 2hrs (may take w/ Ibuprofen) gabapentin 300 mg capsule 300 mg PO BID 30 Days Qty: 60 1RF amitriptyline 10 mg tablet 10 - 20 mg PO BEDTIME 30 Days Qty: 60 3RF meloxicam 15 mg tablet 15 mg PO DAILY PRN (Reason: for pain) Qty: 30 1RF losartan 25 mg tablet 25 mg PO DAILY riboflavin (vitamin B2) 400 mg tablet 400 mg PO DAILY Qty: 30 6RF oxycodone 5 mg tablet 5 mg PO Q12H PRN (Reason: pain (scale score 7-10)) 10 Days Qty: 20 0RF Rx Instructions: Partial Fill upon patient request. propranolol 60 mg capsule,extended release 24 hr 60 mg PO BEDTIME 30 Days Qty: 30 3RF methocarbamol 750 mg tablet 750 mg PO BEDTIME PRN (Reason: muscle spasm) pramipexole 0.75 mg tablet 0.75 mg PO BEDTIME citalopram 20 mg tablet 20 mg PO DAILY magnesium glycinate 100 mg tablet 200 mg PO DAILY 30 Days Qty: 60 0RF ondansetron 4 mg tablet,disintegrating 4 mg PO Q8H PRN (Reason: nausea and vomiting) 2 Days Qty: 10 1RF hydroxyzine HCl 25 mg tablet 25 mg PO TID Referrals: Shukri Irwin MD, PhD [Physician] - Interventions: ED Discharge Assessment Last Done: 07/24/23 16:37 Discharge Date/Time: 07/24/23 16:38
[2023-07-24] MEDS: Acetaminophen 325 MG TABLET 975 MG PO (11:58)
[2023-07-24] MEDS: Lidocaine 4 % Patch ADH..PATCH 1 PATCH TRANSDERMA (11:58)
[2023-07-24] MEDS: Cyclobenzaprine HCl 10 MG TABLET PO (11:58)
[2023-07-24] MEDS: HYDROmorphone HCl 0.5 MG/0.5 ML SYRINGE IM (16:34)
[2023-07-24 16:37] VITALS: BP 157/87; PULSE 76; RESP 18; TEMP 36.6; O2SAT 97
== END 2023-07-24 16:38 | disposition home or self-care (01) ==
PROVIDERS: Emergency Provider Emergency Medicine; PCP Student in an Organized Health Care Education/Training Program
DX: M48.56XA Collapsed vertebra, not elsewhere classified, lumbar region, initial encounter for fracture (principal); M54.50 Low back pain, unspecified; M51.37 Other intervertebral disc degeneration, lumbosacral region; E78.5 Hyperlipidemia, unspecified; Z79.899 Other long term (current) drug therapy
CPT/HCPCS: 72132; 96372; 99283; 99284; J1170

== ENCOUNTER 2023-07-27 09:24 | Outpatient (AMB) | payer MEDICARE, MEDICAID, SELFPAY ==
--- NOTE | 2023-07-27 09:27 | A.OFFVIS_ITS ---
Intake Vital Signs 07/27/23 09:31 Height 5 ft 3 in Weight 185 lb BMI 32.8 BP 145/77 H Blood Pressure Location Rt brachial Position Sitting Pulse 87 Pulse Source Pulse Oximeter Pulse Oximetry (%) 98 Oxygen Delivery Method Room Air Intake Visit Reasons: Fractured L5 Intake Note: Pain today 02/16 Home Health Lpn Required: No Accompanied by: Self / Same As Patient Allergies Sulfa (Sulfonamide Antibiotics) Allergy (Unknown, Verified 07/27/23 09:31) Rash tramadol Allergy (Unknown, Verified 07/27/23 09:31) Itching HPI HPI Comments History of Present Illness Details Patient presents today for follow up s/p recent ER visit on 07/24/23 for acute exacerbation of chronic low back pain for 1 week. She admits that on bending over about one week ago she felt a pop in her lower back and had sudden stabbing pain which has been constant since then. Lumbar CT scan showed a cute appearing upper endplate compression fracture at L5 exhibiting 20% upper endplate height loss and no significant retropulsion. No additional acute fractures. She has significant increase in pain with bending forward and extension, unable to bend down and localized moderate midline tenderness in her lower lumbar spine. She also continues to endorse coccyx pain which has been chronic condition to her and will be undergoing CT scan for this as prior 2 nerv e blocks were partially effective. Patient was treated with one dose of Dilaudid in the ER with moderate relief but was not sent home with a new script due to being on pain contract through our office. I have informed the patient that she is not on our Opioid Program Contract as we are not prescribing continuous opioid therapy for her. Patient was informed today that she is able to accept any opioid prescription in the Urgent clinic, ER or other provider should there be medical necessity for it. Patient has received multiple interventional and non-opioid medical management at our office with one time script of oxycodone in 05/2023 for significant exacerbation of acute on chronic pain. She verbalized understanding. Patient denies any fever, numbness, tingling, weakness, foot drop, bladder or bowel dysfunction, or saddle anesthesia. PRIOR: Patient presents today for follow up after Physical therapy. Patient reports she has one more week to complete PT. She states PT made her pain and symptoms worse. She now reports of neck pain radiating into her left shoulder and states previous left rotator cuff surgery x2. Patient reports low back pain remains her troublesome area with radicular symptoms, more to the right anterior thigh and intermittently to the left anterior thigh. She notes knee pain with walking as well. Denies any recent trauma, injury or falls. Pain negatively affects her daily functioning, activities, sleep, mood and quality of life. Patient also reports chronic coccyx pain of 6 years due to a slip and fall accident. She underwent ganglion impar block with 50% pain relief. Today, she is sitting to the side and offloading her coccyx pressure and notes that cushion relief pillows or pads have not been effective. Her coccyx xray was unremarkable in 08/2022. We will proceed with CT scan to further evaluate her coccyx pain. Patient is interested to proceed with diagnostic lumbar medial branch blocks and transforaminal epidural steroid injections as next steps for her ongoing symptoms. Denies any fever, abdominal or groin pain, weakness, foot drop, bladder or bowel dysfunction, or saddle anesthesia. Past Procedures: 10/27/22: Bilateral Diagnostic SIJ injec tions-80% pain relief for 1.5 days 09/29/22: Ganglion Impar Block-50% pain relief PRIOR: Patient is a pleasant 57 years old female with a history of lumbar DDD, chronic coccydynia and bilateral sacroiliitis, presents today for initial evaluation of lower back pain and coccyx pain. She attributes her pain generators to traumatic slip and fall injury about 5 years ago. Denies any recent trauma, injury or falls. She has had pain in her tailbone radiating towards her lower back and occasionally into her left leg since fall injury. Pain is constant and described as dull, sore, hurting, aching, heavy, spreading, radiating, piercing and occasionally throbbing. Pain increased with sitting, changing positions, or applying pressure directly to her tailbone. Pain affects her daily activities, she cannot sleep supine due to bilateral rotator cuff pain and has been sleeping in a recliner. Pain has been managed with methocarbamol and occasionally OTC medications with continued symptoms. She uses Donut pillow for pressure relief. Denies any previous injections or spine surgery. She reports completing pelvic physiotherapy in [place] with manipulation of her sacroiliac joints with minimal improvements. Denies fever, weight loss, abdominal or groin pain, vaginal bleeding, prolapse or discharge, bladder or bowel incontinence or saddle anesthesia. Patient is a daily smoker and currently not motivated to quit as she recently lost her dog. [facility] Medical History EUGENIA (iron deficiency anemia) Vitamin D deficiency Restless leg syndrome Depression Plantar fasciitis Osteopenia Migraine Hyperlipidemia DDD (degenerative disc disease), lumbosacral Complete tear of left rotator cuff Carpal tunnel syndrome Surgical History H/O shoulder surgery Social History Alcohol intake: never Patient Tobacco Use Status: Current everyday Tobacco user Tobacco use type: Cigarette Cigarette Packs Per Day: 0.5 Review of Systems Const All systems reviewed & are unremarkable except as noted in HPI and below Neuro Denies Abnormal speech present and Denies Sensory deficit (Neuro) Physical Exam Vital Signs: Last Vital Signs Pulse 87 07/27/23 09:31 BP 145/77 H 07/27/23 09:31 Pulse Ox 98 07/27/23 09:31 Oxygen Delivery Method Room Air 07/27/23 09:31 BMI result Body Mass Index 32.8 General: Appears afebrile. Uncomfortable due to pain. Alert and oriented. Mood and affect appropriate. Follows and participates in conversation appropriately. Respiratory effort is unlabored. No cough. Able to transition from sit to stand unassisted Pacing in the room, avoids sitting due to coccyx and low back pain. Back/Spine/Pelvis Other: Limited lumbar ROM due to pain, lumbar flexion and extension reproduces moderate-severe pain. Painful bilateral facet loading, right>left. Moderate midline tenderness lower lumbar spine L4-L5. SLR negative bilaterally. Cervical Spine: cervical muscular tenderness, pain with cervical ROM, cervical spasm (right), No Cervical spine tenderness and No step off deformity Thoracic/Lumbar Spine: thoracic and lumbar spine normal to inspection, No Thoracic/lumbar spine scar(s), Lasegue's sign negative, pain with thoraco-lumbar ROM, paraspinal muscle tenderness on the right greater than left, thoraco-lumbar ROM limited, Thoracic/lumbar scoliosis, No thoracic spinal tenderness and lumbar spinal tenderness at L4 Pelvis: buttock tenderness bilaterally Sacroiliac joints: bilaterally (Ad's and Stinchfield, left>right) tender to palpation Coccyx: Coccyx tenderness present Neuro General: moves all extremities, Normal light touch and pain sensation and deep tendon reflexes 2+ bilaterally Cranial nerves: Yes CN's II-XII intact bilaterally Cognition (Neuro): normal cognition Speech: No Abnormal speech present Gait exam (Neuro): Normal gait present and No Assistive device used Motor exam (neuro): 5/5 motor strength present throughout, no tremor noted and Motor abnormalities not present Sensory Exam: No Sensory deficit (Neuro) Extrem General: Yes capillary refill normal, Yes no clubbing, cyanosis or edema and Yes no calf tenderness Results Reviewed Results Reviewed: CT LUMBAR SPINE WITHOUT CONTRAST 07/24/23 CLINICAL INFORMATION: Low back pain. COMPARISON: Lumbar spine MRI 03/16/2023. TECHNIQUE: Multidetector CT acquisition of the lumbar spine is obtained without contrast. FINDINGS: There is an acute appearing upper endplate compression fracture at L5 exhibiting 20% upper endplate height loss and no significant retropulsion. No additional acute fractures. The remaining lumbar vertebral body heights are maintained. There are multilevel endplate osteophytes. Disc volumes are preserved. Leftward convex lumbar scoliosis. There is sigmoid diverticulosis. Fat-containing inguinal hernias bilaterally. Aortoiliac atherosclerotic calcification. Multilevel degenerative disc disease and facet arthropathy throughout the lumbar spine. Right lateral disc osteophyte protrusions at L1-L2 and L2-L3 result in mild right-sided foraminal encroachment at both of these levels and probable mass effect on the extraforaminal right L2 nerve root at L2-L3. At L3-L4, there is a diffuse annular disc bulge and there is bilateral facet arthropathy and ligamentum flavum thickening contributing to bilateral subarticular zone stenosis. A right lateral disc protrusion likely compresses the exiting right L3 nerve root. At L4-L5, a right lateral disc protrusion likely results in mass effect on the extraforaminal right L4 nerve root and spondylitic changes result in moderate bilateral foraminal stenosis. IMPRESSION: - There is an acute appearing upper endplate compression fracture at L5 exhibiting 20% upper endplate height loss and no significant retropulsion. No additional acute fractures. - At L3-L4, there is a diffuse annular disc bulge and there is bilateral facet arthropathy and ligamentum flavum thickening contributing to bilateral subarticular zone stenosis. A right lateral disc protrusion likely compresses the exiting right L3 nerve root. - At L4-L5, a right lateral disc protrusion likely results in mass effect on the extraforaminal right L4 nerve root and spondylitic changes result in moderate bilateral foraminal stenosis. - Right lateral disc osteophyte protrusions at L1-L2 and L2-L3 result in mild right-sided foraminal encroachment at both of these levels and probable mass effect on the extraforaminal right L2 nerve root at L2-L3. Assessment & Plan Assessment & Plan (1) Closed compression fracture of L5 vertebra: Code(s): S32.050A - Wedge compression fracture of fifth lumbar vertebra, initial encounter for closed fracture (2) Midline low back pain: Code(s): M54.50 - Low back pain, unspecified (3) DDD (degenerative disc disease), lumbosacral: Code(s): M51.37 - Other intervertebral disc degeneration, lumbosacral region (4) Coccydynia: Code(s): M53.3 - Sacrococcygeal disorders, not elsewhere classified (5) Lumbar spondylosis: Code(s): M47.816 - Spondylosis without myelopathy or radiculopathy, lumbar region Plan Order for Bone Scan was placed. We will also proceed with lumbar spine MRI to e valuate the degree of retropulsion prior to consideration of any treatments and follow up on recent CT scan findings as noted above. Discussed interventional treatments for L5 compression fracture, including kyphoplasty. Informational pamphlet provided. Short script provided for oxycodone for moderate-severe pain due to recent L5 compression fracture and acute exacerbation of chronic low back pain. Side effects, precautions and medication safety was discussed with patient in greater detail. Narcan provided. I have informed the patient that she is not on our Opioid Program Contract as we are not prescribing continuous opioid therapy for her. Patient was informed today that she is able to accept any opioid prescription in the Urgent clinic, ER or other provider should there be medical necessity for it. All questions and concerns have been answered and patient agreed with the plan. Follow up for Bone Scan/MRI results and sooner as needed. Orders: Orders MR lumbar spine wo con Today M51.37 - Other intervertebral disc degeneration, lumbosacral region, M54.50 - Low back pain, unspecified, S32.050A - Wedge compression fracture of fifth lumbar vertebra, initial encounter for closed fracture XR DEXA axial skeleton 07/26/23 M51.37 - Other intervertebral disc degeneration, lumbosacral region, S32.050A - Wedge compression fracture of fifth lumbar vertebra, initial encounter for closed fracture Medications: New naloxone 4 mg/actuation (Narcan) spray 1 dose into ONE nostril; alternate nostrils w each dose until help arrives 4 mg intranasal Q2M PRN 2 ea 0RF opioid overdose M54.50 - Low back pain, unspecified, S32.050A - Wedge compression fracture of fifth lumbar vertebra, initial encounter for closed fracture Changed From oxycodone Partial Fill upon patient request. 5 mg PO Q12H 10 days PRN 20 tabs 0RF pain (scale score 7-10) S32.050A - Wedge compression fracture of fifth lumbar vertebra, initial encounter for closed fracture To oxycodone Partial Fill upon patient request. 5 mg PO Q6H 10 days PRN 30 tabs 0RF pain (scale score 7-10) S32.050A - Wedge compression fracture of fifth lumbar vertebra, initial encounter for closed fracture Coding Level of Care Code Est Pt Level 4 (53431) Diagnoses Closed compression fracture of L5 vertebra S32.050A Midline low back pain M54.50 DDD (degenerative disc disease), lumbosacral M51.37 Coccydynia M53.3 Lumbar spondylosis M47.816
[2023-07-27 09:31] VITALS: BP 145/77; PULSE 87; O2SAT 98; BMI 32.8
== END 2023-07-27 09:55 | disposition home or self-care (01) ==
PROVIDERS: PCP Student in an Organized Health Care Education/Training Program; Visit Provider Nurse Practitioner Family
DX: S32.050A Wedge compression fracture of fifth lumbar vertebra, initial encounter for closed fracture (principal); M54.50 Low back pain, unspecified; M51.37 Other intervertebral disc degeneration, lumbosacral region; M53.3 Sacrococcygeal disorders, not elsewhere classified; M47.816 Spondylosis without myelopathy or radiculopathy, lumbar region
CPT/HCPCS: 99214

== ENCOUNTER → 2023-07-27 09:24 | Outpatient (BNVA) | payer MEDICARE, MEDICAID, SELFPAY | PROVIDERS: PCP Student in an Organized Health Care Education/Training Program; Visit Provider Nurse Practitioner Family | DX: M51.37 Other intervertebral disc degeneration, lumbosacral region (principal); M54.50 Low back pain, unspecified; M47.816 Spondylosis without myelopathy or radiculopathy, lumbar region; S32.050A Wedge compression fracture of fifth lumbar vertebra, initial encounter for closed fracture; X58.XXXA Exposure to other specified factors, initial encounter; Y93.9 Activity, unspecified; Y92.9 Unspecified place or not applicable; Y99.9 Unspecified external cause status | CPT/HCPCS: 99212 ==

== ENCOUNTER 2023-07-28 15:04 | Outpatient (REF) | payer MEDICARE, MEDICAID, SELFPAY ==
--- NOTE | ~2023-07-28 | CT_ITS ---
EXAMINATION: CT of the sacrum. CLINICAL INFORMATION: Coccyx pain for 6 hours slip and fall. COMPARISON: CT lumbar sacral spine 07/24/2023. TECHNIQUE: CT scan of the sacrum with reconstruction imaging performed at the acquisition workstation. FINDINGS: DLP: 573 mGycm Sacrum and coccyx intact without fracture Sacroiliac joints normal. Hip joints normal Visualized pelvis and proximal femurs intact. Partially visualized lumbar sacral spine: There is a minimally depressed fracture of the superior endplate of L5 as described completely CT scan lumbar sacral spine performed 07/24/2023. CT/CT sacrum IMPRESSION: 1. Sacrum and coccyx intact without fracture. 2. Minimally depressed fracture of the superior endplate of L5 unchanged compared to CT lumbar spine on july.
== END 2023-07-28 15:05 | disposition home or self-care (01) ==
LOC: HO.CT 15:04
PROVIDERS: PCP Student in an Organized Health Care Education/Training Program; Visit Provider Nurse Practitioner Family
DX: M53.3 Sacrococcygeal disorders, not elsewhere classified (principal)
CPT/HCPCS: 72192

== ENCOUNTER 2023-07-29 08:08 | Outpatient (REF) | payer MEDICARE, MEDICAID, SELFPAY ==
--- NOTE | ~2023-07-29 | MM_ITS ---
EXAMINATION: BONE DENSITOMETRY CLINICAL INDICATION: Wedge compression fracture of 5th lumbar vertebra. COMPARISON: This is the patient's baseline examination. TECHNIQUE: Using a [employer] DXA System (software version: 13.1) manufactured by [employer], dual-energy x-ray absorptiometry was performed of the lumbar spine and left hip. The images are of good technical quality. Summary results are attached. FINDINGS: AP SPINE L1-L4: BMD 0.941 g/cm2, Z-score -1.6, T-score -2.0, osteopenia. LEFT FEMUR, NECK: BMD 0.855 g/cm2, Z-score -0.6, T-score -1.3, osteopenia. LEFT FEMUR, TOTAL: BMD 0.927 g/cm2, Z-score -0.3, T-score -0.6, normal. IDENTIFIED RISK FACTORS: History of adult fracture. Current smoker. Secondary osteoporosis (early menopause). HISTORY OF FRACTURE: Spine. MEDICATIONS: None listed. MM/XR DEXA axial skeleton IMPRESSION: 1. DIAGNOSIS: Osteopenia based on the lowest T-score value of -2.0 in the lumbar spine applying World Health Organization criteria. 2. 10-YEAR FRACTURE RISK PREDICTION, FRAX: Major osteoporotic fracture (clinical spine, forearm, hip or shoulder) 11.5%. Hip fracture 1.4%. 3. Treatment Recommendations: NOF guidelines recommend consideration for treatment in postmenopausal women and men age 50 and older presenting with the following: -A hip or vertebral (clinical or morphometric) fracture. -T-score less than or equal to -2.5 at the femoral neck or spine after appropriate evaluation to exclude secondary causes. -Low bone mass at the hip or spine and a 10-year fracture probability by FRAX of greater than or equal to 3% for hip fracture or greater than or equal to 20% for major osteoporotic fracture based on the [place] adapted WHO algorithm. 4. Other Recommendations: All treatment decisions require clinical judgment and consideration of individual patient factors, including patient preferences, comorbidities, previous drug use, risk factors not captured in the FRAX model (e.g. frailty, falls, vitamin D deficiency, increased bone turnover, interval significant decline in bone density) and possible under or overestimation of fracture risk by FRAX. Additional medical evaluation for secondary cause of low bone mineral density may be appropriate. FUTURE SCAN RECOMMENDATION: People with diagnosed cases of osteoporosis or at high risk for fracture should have regular bone mineral density tests. For patients eligible for Medicare, routine testing is allowed once every 2 years. The testing frequency can be increased to one year for patients who have rapidly progressing disease, those who are receiving or discontinuing medical therapy to restore bone mass, or have additional risk factors.
== END 2023-07-29 08:09 | disposition home or self-care (01) ==
LOC: HO.MAMMO 08:08
PROVIDERS: PCP Student in an Organized Health Care Education/Training Program; Visit Provider Nurse Practitioner Family
DX: Z13.820 Encounter for screening for osteoporosis (principal); M51.37 Other intervertebral disc degeneration, lumbosacral region; S32.050A Wedge compression fracture of fifth lumbar vertebra, initial encounter for closed fracture; Z78.0 Asymptomatic menopausal state
CPT/HCPCS: 77080

== ENCOUNTER 2023-08-03 06:10 | Outpatient (REF) | payer MEDICARE, MEDICAID, SELFPAY ==
--- NOTE | ~2023-08-03 | FL_ITS ---
EXAMINATION: XR FLUOROSCOPY WITH IMAGES CLINICAL INFORMATION: Low back pain COMPARISON: None available. TECHNIQUE: Fluoroscopy Supervised By: Dr. Edilson Pike. Fluoroscopy Time: 0.6 minutes. Cumulative Dose: 19.9 mGy. DAP: 0.372 Gycm2. Images: 6. FINDINGS: Spinal needles were placed into the transforaminal spaces at L3/L4, L4/L5 and L5/S1 bilaterally with contrast injections FL/FL guidance in treatment room IMPRESSION: Bilateral transforaminal injections at L3/L4, L4/L5 and L5/S1
== END 2023-08-03 06:11 | disposition home or self-care (01) ==
LOC: CF 06:10
PROVIDERS: Visit Provider Anesthesiology
DX: M47.816 Spondylosis without myelopathy or radiculopathy, lumbar region (principal); M54.50 Low back pain, unspecified; S32.050A Wedge compression fracture of fifth lumbar vertebra, initial encounter for closed fracture
CPT/HCPCS: 64493; 64494; J2795; Q9967

== ENCOUNTER 2023-08-03 10:00 | Outpatient (AMB) | payer MEDICARE, MEDICAID, SELFPAY ==
[2023-08-03 10:12] VITALS: BP 138/84; PULSE 90; RESP 20; O2SAT 96; BMI 32.8
--- NOTE | 2023-08-03 10:12 | A.OFFVIS_ITS ---
Intake Vital Signs 08/03/23 10:12 08/03/23 11:10 Height 5 ft 3 in Weight 185 lb BMI 32.8 BP 138/84 138/84 Blood Pressure Location Lt brachial Lt brachial Position Sitting Sitting Respiration 20 18 Pulse 90 93 Pulse Source Pulse Oximeter Pulse Oximeter Pulse Oximetry (%) 96 97 Oxygen Delivery Method Room Air Room Air Comment Pre-Op Post-Op Intake Visit Reasons: BILATERAL DIAGNOSTIC L3,L4, DRL5 MBB/ATIVAN REQ Allergies Sulfa (Sulfonamide Antibiotics) Allergy (Unknown, Verified 07/27/23 09:31) Rash tramadol Allergy (Unknown, Verified 07/27/23 09:31) Itching PFSH Medical History (Updated 08/03/23 @ 13:19 by Edilson Pike MD) Lumbar spondylosis EUGENIA (iron deficiency anemia) Vitamin D deficiency Restless leg syndrome Depression Plantar fasciitis Osteopenia Migraine Hyperlipidemia DDD (degenerative disc disease), lumbosacral Complete tear of left rotator cuff Carpal tunnel syndrome Surgical History H/O shoulder surgery Social History Alcohol intake: never Patient Tobacco Use Status: Current everyday Tobacco user Tobacco use type: Cigarette Cigarette Packs Per Day: 0.5 Physical Exam Vital Signs: Last Vital Signs Pulse 93 08/03/23 11:10 Resp 18 08/03/23 11:10 BP 138/84 08/03/23 11:10 Pulse Ox 97 08/03/23 11:10 Oxygen Delivery Method Room Air 08/03/23 11:10 BMI result Body Mass Index 32.8 Assessment & Plan Assessment & Plan (1) Midline low back pain: Code(s): M54.50 - Low back pain, unspecified (2) Closed compression fracture of L5 vertebra: Code(s): S32.050A - Wedge compression fracture of fifth lumbar vertebra, initial encounter for closed fracture (3) Spondylosis of lumbar spine: Code(s): M47.816 - Spondylosis without myelopathy or radiculopathy, lumbar region Plan Diagnostic medial branch block L3,L4 dorsal ramus L5 bilateral.? ? ?Informed consent was explained to the patient. All questions were explained and? answered.? The patient was taken inside the operating room where she was positioned prone on the operating table. Time-out was performed delineating correct site, side, the nature of the pro cedure, patient's allergy, . All operating room staff was participating in OR time-out procedure. ? ? The lower back was prepped with ChloraPrep and draped with sterile towels.? C- arm was brought over the operating field and sq picture of L4-, L5 vertebra and S1 AREA were delineated on the screen.? Point of interest were delineated as confluence of superior articular process of L4 and L5 vertebra bilaterally with corresponding transverse processes as well as confluence of the sacral alae bilaterally with superior articular process of S1.? The projection of the point of interest to the skin were injected with the small amount of local anesthetic lidocaine 2% 1-1.5 cc.? After that 22 gauge 3.5 inch spinal needle was driven sequentially to the points of interest in tunnel vision fashion. After needles gently contacted the bone at the point of interests the needle was injected with small amount of the contrast.? The injection of the contrast did not demonstrate any intravascular or intrathecal spread of the contrast.? After that injection of the? ropivacaine 0.5%-1cc was performed at each needle location.??after that the needles were removed and Bandaids were applied. ? Upon completion of the injections? needle was? removed and sterile Band-Aids were applied.? The patient tolerated procedure very well. Orders: Orders FL guidance in treatment room Today M47.816 - Spondylosis without myelopathy or radiculopathy, lumbar region Coding Level of Care Code Procedure Only Diagnoses Midline low back pain M54.50 Closed compression fracture of L5 vertebra S32.050A Spondylosis of lumbar spine M47.816
[2023-08-03 11:10] VITALS: BP 138/84; PULSE 93; RESP 18; O2SAT 97
== END 2023-08-03 11:07 | disposition home or self-care (01) ==
LOC: HO.PMCPRC 10:00
PROVIDERS: PCP Student in an Organized Health Care Education/Training Program; Visit Provider Anesthesiology
DX: M47.816 Spondylosis without myelopathy or radiculopathy, lumbar region (principal); M54.50 Low back pain, unspecified; S32.050A Wedge compression fracture of fifth lumbar vertebra, initial encounter for closed fracture
CPT/HCPCS: 64493; 64494

== ENCOUNTER 2023-08-04 11:37 | Emergency (ER) | payer MEDICARE, MEDICAID, SELFPAY ==
[2023-08-04 12:19] VITALS: BP 153/66; PULSE 89; RESP 18; TEMP 36.9; O2SAT 97; BMI 32.8
--- NOTE | 2023-08-04 12:22 | ED_ITS ---
HPI - General Adult General Chief complaint: Nausea/Vomiting/Diarrhea Stated complaint: Nausea Vomiting S/P Injection 08/03/23 Time Seen by Provider: 08/04/23 15:58 Source: patient Mode of arrival: ambulatory Limitations: no limitations History of Present Illness HPI narrative: 58-year-old female with past medical history significant for chronic back pain coccydynia spondylosis lumbar spine recently diagnosed with a closed compression fracture of L5 patient is prescribed oxycodone has tried Tylenol ibuprofen but currently is not take anything stating that nothing seems to work. Patient was seen by pain management yesterday and had 6 injections to L3 through L5 bilaterally for pain control. Patient has no had no fever she states she was able to go home and woke up this morning and has had the urge to have bowel movement. She states she has had a bowel movement she has not incontinent she has no fevers she has no weakness or numbness she is able to ambulate normally she is normal reflexes she has no chest pain cough. She has not taken for the pain but states she is here for pain management she states she got Dilaudid last time she was here and is requesting that again today. Trace stated the patient might be having some vomiting the patient denies any vomiting states she is the urge to defecate but has been constipated but is now having bowel movements since she arrived here. Related Data Home Medications Medication Instructions Recorded Confirmed citalopram 20 mg tablet 20 mg PO DAILY 10/29/22 05/31/23 methocarbamol 750 mg tablet 750 mg PO BEDTIME PRN muscle spasm 10/29/22 05/31/23 pramipexole 0.75 mg tablet 0.75 mg PO BEDTIME 10/29/22 05/31/23 losartan 25 mg tablet 25 mg PO DAILY 05/11/23 05/31/23 hydroxyzine HCl 25 mg tablet 25 mg PO TID 06/21/23 sennosides 8.6 mg tablet (Senna 8.6 mg PO DAILY PRN 07/27/23 Laxative) Previous Rx's Medication Instructions Recorded magnesium glycinate 100 mg tablet 200 mg (2 x 100 mg) PO DAILY 10/29/22 migraine headache 30 days #60 tabs lidocaine 5 % topical patch 1 patch topical DAILY for pain #30 12/11/22 patches ondansetron 4 mg disintegrating 4 mg PO Q8H PRN nausea and 01/05/23 tablet vomiting 2 days #10 tabs ubrogepant 100 mg tablet (Ubrelvy) 50 - 100 mg (0.5 - 1 x 100 mg) PO 02/12/23 ONCE PRN migraine headache 30 days #16 tabs gabapentin 300 mg capsule 300 mg PO BID for pain 30 days #60 04/27/23 caps riboflavin (vitamin B2) 400 mg 400 mg PO DAILY for migraine #30 05/11/23 tablet tabs propranolol 60 mg capsule,24 60 mg PO BEDTIME 30 days #30 caps 05/31/23 hr,extended release amitriptyline 10 mg tablet 10 - 20 mg (1 - 2 x 10 mg) PO 06/11/23 BEDTIME for pain 30 days #60 tabs meloxicam 15 mg tablet 15 mg PO DAILY PRN for pain #30 06/24/23 tabs lidocaine 5 % topical patch 1 patch topical DAILY #15 ea 07/24/23 (Lidoderm) naloxone 4 mg/actuation nasal 4 mg intranasal Q2M PRN opioid 07/27/23 spray (Narcan) overdose #2 ea oxycodone 5 mg tablet 5 mg PO Q6H PRN pain (scale score 07/27/23 7-10) 10 days #30 tabs Allergies Allergy/AdvReac Type Severity Reaction Status Date / Time Sulfa (Sulfonamide Allergy Unknown Rash Verified 07/27/23 09:31 Antibiotics) tramadol Allergy Unknown Itching Verified 07/27/23 09:31 Review of Systems 2 Review of Systems: Review of systems: General: Patient denies any fever chills recent illness or falls Musculoskeletal: Acute on chronic back pain denies any or body aches or other injuries HEENT: denies headache, runny nose, ear pain Respiratory: denies shortness of breath, cough Cardiovascular: no chest pain or palpitations : denies dysuria, frequency Abdomen: no nausea vomiting denies abdominal pain Extremities: no swelling, no pain Skin: no diaphoresis Yes all other systems are reviewed and are negative [facility] Past Medical History Medical History (Updated 08/04/23 @ 16:35 by Maynor Goodrich DO) Lumbar spondylosis EUGENIA (iron deficiency anemia) Vitamin D deficiency Restless leg syndrome Depression Plantar fasciitis Osteopenia Migraine Hyperlipidemia DDD (degenerative disc disease), lumbosacral Complete tear of left rotator cuff Carpal tunnel syndrome Surgical History H/O shoulder surgery Social History Social History Alcohol intake: never Patient Tobacco Use Status: Current everyday Tobacco user Tobacco use type: Cigarette Cigarette Packs Per Day: 0.5 Smoked in Last 30 Days: Yes Use of substances other than those prescribed or required for medical reasons: No Advance Directives: No Physical Exam ED Vital Signs: Vital Signs - 24 hr 08/04/23 12:19 08/04/23 15:48 08/04/23 16:39 Temperature 98.4 F 97.7 F 98 F Pulse Rate 89 79 78 Respiratory Rate 18 16 18 Blood Pressure 153/66 H 133/59 L 133/59 L Pulse Oximetry 97 98 95 Oxygen Delivery Method Room Air Room Air Room Air BMI result Body Mass Index 32.8 General: Well-appearing well-nourished in no signs of distress HEENT: Normocephalic atraumatic Neck: No signs of JVD, no masses no tenderness or lymphadenopathy Cardiovascular: Regular rate and rhythm Respiratory: Clear to auscultation bilaterally Abdomen: Soft nontender no masses rectal exam performed guiac negative director software quality assurance confirmed. Extremities: Normal pedal pulses no signs of edema Skin: Dry warm no rashes Back: No tenderness full ROM negative straight leg test normal reflexes to bilateral lower extremities has good sensation to the perineal region able to squeeze her but she is Course Course Course Narrative: This is an RME: Additional HPI, ROS, PE not included below will be deferred to primary provider. This is a [id number]-female with a pmhx significant for lumbosacral degenerative disc disease, lumbar spondylosis, lumbar radiculopathy, SI joint pain, chronic coccydynia, peripheral neuropathy, restless leg syndrome, tobacco dependence, and migraines presents to the ED today for evaluation of back pain, vomiting and diarrhea since this morning. Plan: Labs, further ER evaluation needed. Medications Administered Discontinued Medications Generic Name Dose Route Start Last Admin Trade Name Freq PRN Reason Stop Dose Admin Ketorolac Tromethamine 15 mg 08/04/23 16:31 08/04/23 16:36 Ketorolac Tromethamine 30 Mg/Ml Vial IM 03/27/24 16:32 15 mg ONCE ONE Administration Medical Decision Making Medical Decision Making [facility] Narrative: I will give patient Zofran fluids I did check labs which were unremarkable Differential Diagnosis Differential Diagnoses: The differential diagnosis associated with the presentation includes Nausea vomiting bowel syndrome gastroenteritis patient has a benign belly patient has no obvious signs dehydration electrolyte abnormality think patient is safe patient is status post procedure to the back this could be related to the procedure as well. With procedure yesterday the concerned this could be CT [facility] so was emesis abscess is low as the patient has no fever there is no signs of redness or infection to the area she has normal strength bilateral extremities Admission/Observation Consideration of admission/observation: Escalation of care including admission/observation considered Patient looks well I do not think the patient needs any imaging or monitoring admission think the patient can go home I will start patient Toradol think the patient benefit following up with pain management Lab Data [facility] Lab Attestation statement: I reviewed the patient's lab results. 08/04/23 12:49 08/04/23 12:49 Labs: Lab Results 08/04/23 Range/Units 12:49 WBC 10.9 H (4.8-10.8) X10*3/uL RBC 4.94 (4.20-5.50) X10*6/uL Hgb 14.4 (12.0-16.0) g/dl Hct 43.3 (37.0-47.0) % MCV 87.7 (80.0-98.0) fL MCH 29.1 (27.0-33.0) pg MCHC 33.3 (31.0-35.0) g/dl RDW 12.9 (11.0-16.0) % Plt Count 250 (160-400) X10*3/uL MPV 9.0 L (9.4-12.3) fL Immature Gran % (Auto) 0.3 (0.0-0.4) % Neut % (Auto) 79.9 H (45-73) % Lymph % (Auto) 14.1 L (20-40) % [place] % (Auto) 5.2 (2-11) % Eos % (Auto) 0.1 (0-4) % Baso % (Auto) 0.4 (0-2) % Lymph # (Auto) 1.5 (1.2-4.9) X10*3/uL [place] # (Auto) 0.6 (0.1-1.2) X10*3/uL Eos # (Auto) 0.0 (0.0-0.4) X10*3/uL Baso # (Auto) 0.0 (0.0-0.2) X10*3/uL Abs Immat Gran (auto) 0.03 (0.00-0.03) X10*3/uL Absolute Neuts (auto) 8.7 H (2.0-8.3) x10*3/uL Absolute Nucleated RBC 0.000 (0.0-0.012) X10*3/uL Nucleated RBC % (auto) 0.0 (0.0-0.2) /100WBC Sodium 138 (135-145) mmol/L Potassium 4.6 (3.3-5.1) mmol/L Chloride 106 (96-108) mmol/L Carbon Dioxide 25 (22-29) mmol/L Anion Gap 12 (12-20) BUN 11 (9-16) mg/dL Creatinine 0.77 (0.5-1.4) mg/dL Estim Creat Clear Calc 82.7 Estimated GFR > 60 Random Glucose 102 (60-115) mg/dL Calcium 9.2 (8.4-10.2) mg/dL Magnesium 2.2 (1.6-2.6) mg/dL Total Bilirubin 0.4 (0.0-1.0) mg/dL Direct Bilirubin 0.1 (0.0-0.5) mg/dL AST 15 (5-31) U/L ALT 19 (0-31) U/L Alkaline Phosphatase 98 (39-117) U/L Troponin I High Sens < 2.7 (<3.5-17.0) ng/L Total Protein 6.9 (6.5-8.0) g/dL Albumin 3.8 (3.5-5.0) g/dL Lipase 21 (8-78) U/L Influenza Type A (PCR) NEGATIVE (Negative) Influenza Type B (PCR) NEGATIVE (Negative) RSV RNA Qual (PCR) NEGATIVE (Negative) SARS-CoV-2 RNA (RT-PCR) NEGATIVE (Negative) External Record Review External record reviewed: Inpatient record, Office record, Outpatient record, Prior outpatient labs and Prior outpatient radiology Chronic Conditions Patient?s care impacted by: Other Chronic back pain close compression fracture of L5 status post procedure yesterday migraines fatigue muscle spasm restless leg Core Measures AMI core measures followed: Yes Discharge Plan Discharge Clinical Impression: Diarrhea, Back pain Patient Disposition: Home, Self-Care Instructions: Lumbar Facet Block (DC), Acute Low Back Pain (ED), Heat Pack Application (ED) Additional Instructions: You were seen today in the emergency department for constipation diarrhea and back pain. He had a procedure done yesterday which is likely causing some of the pain. I would start with conservative therapies retry medications prescribed If you have any numbness loss of bowel or bladder control or any other concerns please return to the emergency department. Prescriptions: No Action lidocaine 5 % adhesive patch,medicated 1 patch topical DAILY Qty: 30 5RF Ubrelvy 100 mg tablet 50 - 100 mg PO ONCE PRN (Reason: migraine headache) 30 Days Qty: 16 3RF Rx Instructions: take at onset of migraine, may repeat in 2hrs (may take w/ Ibuprofen) gabapentin 300 mg capsule 300 mg PO BID 30 Days Qty: 60 1RF amitriptyline 10 mg tablet 10 - 20 mg PO BEDTIME 30 Days Qty: 60 3RF meloxicam 15 mg tablet 15 mg PO DAILY PRN (Reason: for pain) Qty: 30 1RF lidocaine [Lidoderm] 5 % adhesive patch,medicated 1 patch topical DAILY Qty: 15 0RF Rx Instructions: leave on most painful area for up to 12 hrs losartan 25 mg tablet 25 mg PO DAILY riboflavin (vitamin B2) 400 mg tablet 400 mg PO DAILY Qty: 30 6RF propranolol 60 mg capsule,extended release 24 hr 60 mg PO BEDTIME 30 Days Qty: 30 3RF sennosides [Senna Laxative] 8.6 mg tablet 8.6 mg PO DAILY PRN oxycodone 5 mg tablet 5 mg PO Q6H PRN (Reason: pain (scale score 7-10)) 10 Days Qty: 30 0RF Rx Instructions: Partial Fill upon patient request. naloxone [Narcan] 4 mg/actuation spray,non-aerosol 4 mg intranasal Q2M PRN (Reason: opioid overdose) Qty: 2 0RF Rx Instructions: spray 1 dose into ONE nostril; alternate nostrils w each dose until help arrives methocarbamol 750 mg tablet 750 mg PO BEDTIME PRN (Reason: muscle spasm) pramipexole 0.75 mg tablet 0.75 mg PO BEDTIME citalopram 20 mg tablet 20 mg PO DAILY magnesium glycinate 100 mg tablet 200 mg PO DAILY 30 Days Qty: 60 0RF ondansetron 4 mg tablet,disintegrating 4 mg PO Q8H PRN (Reason: nausea and vomiting) 2 Days Qty: 10 1RF hydroxyzine HCl 25 mg tablet 25 mg PO TID Interventions: ED Discharge Assessment Last Done: 08/04/23 16:39 Discharge Date/Time: 08/04/23 16:43
--- NOTE | 2023-08-04 12:31 | ECG_ITS ---
Test Reason : epigastric pain Blood Pressure : / mmHG Vent. Rate : 087 BPM Atrial Rate : 000 BPM P-R Int : 000 ms QRS Dur : 080 ms QT Int : 388 ms P-R-T Axes : 000 027 009 degrees QTc Int : 466 ms Poor data quality Normal sinus rhythm No previous ECGs available Referred By: Vanessa Barney Electronically Signed By:Jeff Salter
[2023-08-04 12:55] LABS: MANUAL DIFF FLAG NO
[2023-08-04 12:58] LABS: Basophils Percent Auto 0.4 % (0-2); Eosinophils Percent Auto 0.1 % (0-4); Hematocrit 43.3 % (37.0-47.0); Hemoglobin 14.4 g/dl (12.0-16.0); Imm Gran Abs Auto 0.03 X10*3/uL (0.00-0.03); Imm Gran Pct Auto 0.3 % (0.0-0.4); Lymphocytes Absolute Auto 1.5 X10*3/uL (1.2-4.9); Lymphocytes Percent Auto 14.1 % (20-40); Mean Corpuscular HGB Conc 33.3 g/dl (31.0-35.0); Mean Corpuscular Hemoglobin 29.1 pg (27.0-33.0); Mean Corpuscular Volume 87.7 fL (80.0-98.0); Monocytes Absolute Auto 0.6 X10*3/uL (0.1-1.2); Monocytes Percent Auto 5.2 % (2-11); Neutrophils Absolute Auto 8.7 x10*3/uL (2.0-8.3); Neutrophils Percent Auto 79.9 % (45-73); Platelet Count 250 X10*3/uL (160-400); Red Blood Count 4.94 X10*6/uL (4.20-5.50); Red Cell Distribution Width 12.9 % (11.0-16.0); White Blood Count 10.9 X10*3/uL (4.8-10.8)
[2023-08-04 13:10] LABS: Alanine Aminotransferase 19 U/L (0-31); Albumin Level 3.8 g/dL (3.5-5.0); Alkaline Phosphatase 98 U/L (39-117); Anion Gap 12 (12-20); Aspartate Amino Transferase 15 U/L (5-31); Bilirubin Direct 0.1 mg/dL (0.0-0.5); Bilirubin Total 0.4 mg/dL (0.0-1.0); Blood Urea Nitrogen 11 mg/dL (9-16); Calcium 9.2 mg/dL (8.4-10.2); Carbon Dioxide 25 mmol/L (22-29); Chloride 106 mmol/L (96-108); Creatinine Clr Calc Pharmacy 82.7; Estimated Glomerular Filt Rate > 60; Glucose Random 102 mg/dL (60-115); Lipase 21 U/L (8-78); Magnesium 2.2 mg/dL (1.6-2.6); Potassium 4.6 mmol/L (3.3-5.1); Sodium 138 mmol/L (135-145); Total Protein 6.9 g/dL (6.5-8.0)
[2023-08-04 13:24] LABS: Troponin-I High Sensitivity < 2.7 ng/L (<3.5-17.0)
[2023-08-04 13:32] LABS: Influenza A PCR NEGATIVE (Negative); Influenza B PCR NEGATIVE (Negative); Resp Syncy Virus RNA Qual PCR NEGATIVE (Negative); SARS COV2 PCR INHOUSE NEGATIVE (Negative)
[2023-08-04 15:48] VITALS: BP 133/59; PULSE 79; RESP 16; TEMP 36.5; O2SAT 98
[2023-08-04] MEDS: Ketorolac Tromethamine 30 MG/ML VIAL 15 MG IM (16:36)
[2023-08-04 16:39] VITALS: BP 133/59; PULSE 78; RESP 18; TEMP 36.6; O2SAT 95
== END 2023-08-04 16:43 | disposition home or self-care (01) ==
PROVIDERS: Physician Assistant Medical; Emergency Provider Student in an Organized Health Care Education/Training Program; PCP Student in an Organized Health Care Education/Training Program
DX: R19.7 Diarrhea, unspecified (principal); M54.9 Dorsalgia, unspecified; R10.13 Epigastric pain; Z11.52 Encounter for screening for COVID-19; Z20.828 Contact with and (suspected) exposure to other viral communicable diseases; Z79.899 Other long term (current) drug therapy
CPT/HCPCS: 0241U; 80048; 80076; 83690; 83735; 84484; 85025; 93005; 96372; 99284; 99285; J1885

== ENCOUNTER → 2023-08-04 12:31 | Outpatient (BNV) | payer MEDICARE, MEDICAID, SELFPAY | PROVIDERS: Emergency Provider Student in an Organized Health Care Education/Training Program; PCP Student in an Organized Health Care Education/Training Program; Visit Provider Internal Medicine Cardiovascular Disease | DX: R10.13 Epigastric pain (principal) | CPT/HCPCS: 93010 ==

== ENCOUNTER 2023-08-10 08:50 | Outpatient (AMB) | payer MEDICARE, MEDICAID, SELFPAY ==
--- NOTE | 2023-08-10 08:54 | A.OFFVIS_ITS ---
Intake Vital Signs 08/10/23 08:58 Height 5 ft 3 in Weight 185 lb BMI 32.8 BP 172/78 H Blood Pressure Location Rt brachial Position Sitting Pulse 82 Pulse Source Pulse Oximeter Pulse Oximetry (%) 99 Oxygen Delivery Method Room Air Intake Visit Reasons: BILATERAL DIAGNOSTIC L3, L4, DRL5 MBB Intake Note: Pain today 11/16 Staff Assistant Required: No Accompanied by: Self / Same As Patient Allergies Sulfa (Sulfonamide Antibiotics) Allergy (Unknown, Verified 08/10/23 08:58) Rash tramadol Allergy (Unknown, Verified 08/10/23 08:58) Itching HPI HPI Comments History of Present Illness Details Patient presents today to assess response Bilateral Diagnostic L3-L4 DR L5 MBB on 08/03/[address] Pike. Patient reports 0% pain relief since procedure. She continues to endorse lower back pain, worse on the right side into the right buttocks. Patient avoids sitting or sleeping on the right side due to pain. Denies radicular symptoms into her lower extremities. She is sitting leaning towards the left side. Patient reports visiting [facility] on 08/04/23 for constipation, diarrhea and back pain and had no pain relief with Ketorolac 15 mg IM at ER. She continues to report constipation and diarrhea episode with difficulty moving her bowels. Patient declined GI services referral today and has been treating her symptoms with sennosides as needed. Patient has requested oxycodone for pain. I have informed patient given constipation, she should avoid opioids at this time and increase fiber and fluid intake. Denies any fever, chills, malaise, weight loss, abdominal or groin pain, bladder or bowel incontinence or saddle anesthesia. Patient has pending lumbar spine MRI on 08/13/23 to evaluate L5 compression fracture for potential kyphoplasty. Past Procedures: 08/03/23: Bilateral Diagnostic L3-L4 DR L5 MBB 10/27/22: Bilateral Diagnostic SIJ injec tions-80% pain relief for 1.5 days 09/29/22: Ganglion Impar Block-50% pain relief PRIOR: Patient is a pleasant 57 years old female with a history of lumbar DDD, chronic coccydynia and bilateral sacroiliitis, presents today for initial evaluation of lower back pain and coccyx pain. She attributes her pain generators to traumatic slip and fall injury about 5 years ago. Denies any recent trauma, injury or falls. She has had pain in her tailbone radiating towards her lower back and occasionally into her left leg since fall injury. Pain is constant and described as dull, sore, hurting, aching, heavy, spreading, radiating, piercing and occasionally throbbing. Pain increased with sitting, changing positions, or applying pressure directly to her tailbone. Pain affects her daily activities, she cannot sleep supine due to bilateral rotator cuff pain and has been sleeping in a recliner. Pain has been managed with methocarbamol and occasionally OTC medications with continued symptoms. She uses Donut pillow for pressure relief. Denies any previous injections or spine surgery. She reports completing pelvic physiotherapy in [place] with manipulation of her sacroiliac joints with minimal improvements. Denies fever, weight loss, abdominal or groin pain, vaginal bleeding, prolapse or discharge, bladder or bowel incontinence or saddle anesthesia. Patient is a daily smoker and currently not motivated to quit as she recently lost her dog. [facility] Medical History Lumbar spondylosis EUGENIA (iron deficiency anemia) Vitamin D deficiency Restless leg syndrome Depression Plantar fasciitis Osteopenia Migraine Hyperlipidemia DDD (degenerative disc disease), lumbosacral Complete tear of left rotator cuff Carpal tunnel syndrome Surgical History H/O shoulder surgery Social History Alcohol intake: never Patient Tobacco Use Status: Current everyday Tobacco user Tobacco use type: Cigarette Cigarette Packs Per Day: 0.5 Review of Systems Const All systems reviewed & are unremarkable except as noted in HPI and below Neuro Denies Abnormal speech present and Denies Sensory deficit (Neuro) Physical Exam Vital Signs: Last Vital Signs Pulse 82 08/10/23 08:58 BP 172/78 H 08/10/23 08:58 Pulse Ox 99 08/10/23 08:58 Oxygen Delivery Method Room Air 08/10/23 08:58 BMI result Body Mass Index 32.8 General: Appears afebrile. Uncomfortable due to pain. Alert and oriented. Mood and affect appropriate. Follows and participates in conversation appropriately. Respiratory effort is unlabored. No cough. Able to transition from sit to stand unassisted Pacing in the room, avoids sitting on the right side due to coccyx and low back pain. Back/Spine/Pelvis Other: Limited lumbar ROM due to pain, lumbar flexion and extension reproduces mild- moderate pain. Cervical Spine: cervical ROM normal, cervical muscular tenderness, No Cervical spine tenderness and No step off deformity Thoracic/Lumbar Spine: thoracic and lumbar spine normal to inspection, No Thoracic/lumbar spine scar(s), Lasegue's sign negative, straight leg raise negative bilaterally, pain with thoraco-lumbar ROM, paraspinal muscle tenderness on the right greater than left, thoraco-lumbar ROM limited, Thoracic/lumbar scoliosis, No thoracic spinal tenderness and lumbar spinal tenderness at L4 Pelvis: buttock tenderness on the right Sacroiliac joints: bilaterally (Ad's left>right) tender to palpation Coccyx: Coccyx tenderness present Neuro General: moves all extremities, Normal light touch and pain sensation and deep tendon reflexes 2+ bilaterally Cranial nerves: Yes CN's II-XII intact bilaterally Cognition (Neuro): normal cognition Speech: No Abnormal speech present Gait exam (Neuro): Normal gait present and No Assistive device used Motor exam (neuro): 5/5 motor strength present throughout, no tremor noted and Motor abnormalities not present Sensory Exam: No Sensory deficit (Neuro) Extrem General: Yes capillary refill normal, Yes no clubbing, cyanosis or edema and Yes no calf tenderness Results Reviewed Results Reviewed: CT LUMBAR SPINE WITHOUT CONTRAST 07/24/23 CLINICAL INFORMATION: Low back pain. COMPARISON: Lumbar spine MRI 03/16/2023. TECHNIQUE: Multidetector CT acquisition of the lumbar spine is obtained without contrast. FINDINGS: There is an acute appearing upper endplate compression fracture at L5 exhibiting 20% upper endplate height loss and no significant retropulsion. No additional acute fractures. The remaining lumbar vertebral body heights are maintained. There are multilevel endplate osteophytes. Disc volumes are preserved. Leftward convex lumbar scoliosis. There is sigmoid diverticulosis. Fat-containing inguinal hernias bilaterally. Aortoiliac atherosclerotic calcification. Multilevel degenerative disc disease and facet arthropathy throughout the lumbar spine. Right lateral disc osteophyte protrusions at L1-L2 and L2-L3 result in mild right-sided foraminal encroachment at both of these levels and probable mass effect on the extraforaminal right L2 nerve root at L2-L3. At L3-L4, there is a diffuse annular disc bulge and there is bilateral facet arthropathy and ligamentum flavum thickening contributing to bilateral subarticular zone stenosis. A right lateral disc protrusion likely compresses the exiting right L3 nerve root. At L4-L5, a right lateral disc protrusion likely results in mass effect on the extraforaminal right L4 nerve root and spondylitic changes result in moderate bilateral foraminal stenosis. IMPRESSION: - There is an acute appearing upper endplate compression fracture at L5 exhibiting 20% upper endplate height loss and no significant retropulsion. No additional acute fractures. - At L3-L4, there is a diffuse annular disc bulge and there is bilateral facet arthropathy and ligamentum flavum thickening contributing to bilateral subarticular zone stenosis. A right lateral disc protrusion likely compresses the exiting right L3 nerve root. - At L4-L5, a right lateral disc protrusion likely results in mass effect on the extraforaminal right L4 nerve root and spondylitic changes result in moderate bilateral foraminal stenosis. - Right lateral disc osteophyte protrusions at L1-L2 and L2-L3 result in mild right-sided foraminal encroachment at both of these levels and probable mass effect on the extraforaminal right L2 nerve root at L2-L3. MM/XR DEXA axial skeleton 07/29/23 IMPRESSION: 1. DIAGNOSIS: Osteopenia based on the lowest T-score value of -2.0 in the lumbar spine applying World Health Organization criteria. Assessment & Plan Assessment & Plan (1) Closed compression fracture of L5 vertebra: Code(s): S32.050A - Wedge compression fracture of fifth lumbar vertebra, initial encounter for closed fracture (2) Midline low back pain: Code(s): M54.50 - Low back pain, unspecified (3) DDD (degenerative disc disease), lumbosacral: Code(s): M51.37 - Other intervertebral disc degeneration, lumbosacral region (4) Coccydynia: Code(s): M53.3 - Sacrococcygeal disorders, not elsewhere classified (5) Lumbar spondylosis: Code(s): M47.816 - Spondylosis without myelopathy or radiculopathy, lumbar region Plan Patient is status post Bilateral Diagnostic L3-L4 DR L5 MBB with 0% pain relief. Next options to repeat same injections in order to establish a reproducible positive response to nerve blocks for potential stimulative or ablative procedures. Patient does have multilevel degenerative disc disease and facet arthropathy throughout her lumbar spine which have shown to be not major pain generator according to recent lumbar medial branch nerve block response. Recent Bone Scan showed osteopenia in lumbar spine. There is pending lumbar spine MRI on 08/13/23 to evaluate the degree of retropulsion prior to consideration of any treatments and follow up on recent CT scan findings as noted above. Reviewed interventional treatments for L5 compression fracture, including kyphoplasty. Informational pamphlet provided. Patient advised to avoid opioid medication due to constipation and difficulty moving her bowels which prompted her to check in to ER on 08/04/23 per EMR review. Increase fiber and fluid daily intake. Patient declined GI consult at this time. All questions and concerns have been answered and patient agreed with the plan. Follow up for MRI results and sooner as needed. Coding Level of Care Code Est Pt Level 3 (57107) Diagnoses Closed compression fracture of L5 vertebra S32.050A Midline low back pain M54.50 DDD (degenerative disc disease), lumbosacral M51.37 Coccydynia M53.3 Lumbar spondylosis M47.816
[2023-08-10 08:58] VITALS: BP 172/78; PULSE 82; O2SAT 99; BMI 32.8
== END 2023-08-10 09:09 | disposition home or self-care (01) ==
PROVIDERS: PCP Student in an Organized Health Care Education/Training Program; Visit Provider Nurse Practitioner Family
DX: S32.050A Wedge compression fracture of fifth lumbar vertebra, initial encounter for closed fracture (principal); M54.50 Low back pain, unspecified; M51.37 Other intervertebral disc degeneration, lumbosacral region; M53.3 Sacrococcygeal disorders, not elsewhere classified; M47.816 Spondylosis without myelopathy or radiculopathy, lumbar region
CPT/HCPCS: 99213

== ENCOUNTER → 2023-08-10 08:50 | Outpatient (BNVA) | payer MEDICARE, SELFPAY | PROVIDERS: PCP Student in an Organized Health Care Education/Training Program; Visit Provider Nurse Practitioner Family | DX: S32.050D Wedge compression fracture of fifth lumbar vertebra, subsequent encounter for fracture with routine healing (principal); M54.50 Low back pain, unspecified; M51.37 Other intervertebral disc degeneration, lumbosacral region; M53.3 Sacrococcygeal disorders, not elsewhere classified; M47.816 Spondylosis without myelopathy or radiculopathy, lumbar region | CPT/HCPCS: 99212 ==

== ENCOUNTER 2023-08-13 07:18 | Outpatient (REF) | payer MEDICARE, MEDICAID, SELFPAY ==
--- NOTE | ~2023-08-13 | MR_ITS ---
MR LUMBAR SPINE WITHOUT CONTRAST CLINICAL INFORMATION: Wedge compression fracture of fifth lumbar vertebra. COMPARISON: CT lumbar spine 07/24/2023. TECHNIQUE: MRI of the lumbar spine was obtained using routine sequences without contrast. FINDINGS: There are 5 nonrib-bearing lumbar-type vertebral bodies. There is a mild acute edematous upper endplate compression fracture at L5 exhibiting 30% upper endplate height loss. Modic type I endplate signal changes at T12-L1. No additional bone marrow edema. The remaining vertebral body heights are maintained. Leftward convex scoliotic curvature of the lumbar spine. Moderate disc volume loss at L1-L2 and T12-L1. Multilevel endplate osteophytes. L1-L2: Small annular disc bulge. No central canal stenosis and no foraminal stenosis. L2-L3: Grade 1 retrolisthesis. Diffuse annular disc bulge that is in part disc osteophyte and mild bilateral facet arthropathy. No central canal stenosis. There is mild foraminal encroachment bilaterally. L3-L4: Grade 1 retrolisthesis. Diffuse disc osteophyte and moderate bilateral facet arthropathy and ligamentum flavum thickening. Findings in concert result in worsening left subarticular zone stenosis with compression of the traversing left L4 nerve root and disc osteophyte results in mass effect on the extraforaminal L3 nerve roots bilaterally. L4-L5: Diffuse annular disc bulge and moderate bilateral facet arthropathy and ligamentum flavum thickening. Central canal remains patent. The previously seen far right lateral disc protrusion has resorbed without residual mass effect on the extraforaminal right L4 nerve root. Disc osteophyte and facet arthropathy result in worsening moderate bilateral foraminal stenosis at this level. L5-S1: Diffuse annular disc bulge and severe left facet arthropathy. No central canal stenosis. Mild foraminal encroachment bilaterally. MR/MR lumbar spine wo con IMPRESSION: * There is a mild acute edematous upper endplate compression fracture at L5 exhibiting 30% upper endplate height loss. * At L3-L4, grade 1 retrolisthesis and progressive spondylitic changes result in worsening left subarticular zone stenosis with compression of the traversing left L4 nerve root and disc osteophyte results in mass effect on the extraforaminal L3 nerve roots bilaterally, greater on the right. * At L4-L5, the previously seen far right lateral disc protrusion has resorbed without residual mass effect on the extraforaminal right L4 nerve root. Progressive spondylitic changes at L4-L5 result in worsening moderate bilateral foraminal stenosis. * Leftward convex lumbar scoliosis.
== END 2023-08-13 07:19 | disposition home or self-care (01) ==
LOC: HO.MRI 07:18
PROVIDERS: PCP Student in an Organized Health Care Education/Training Program; Visit Provider Nurse Practitioner Family
DX: S32.050A Wedge compression fracture of fifth lumbar vertebra, initial encounter for closed fracture (principal); M54.50 Low back pain, unspecified; M51.37 Other intervertebral disc degeneration, lumbosacral region
CPT/HCPCS: 72148

== ENCOUNTER 2023-08-17 09:07 | Outpatient (AMB) | payer MEDICARE, MEDICAID, SELFPAY ==
--- NOTE | 2023-08-17 09:12 | A.OFFVIS_ITS ---
Intake Vital Signs 08/17/23 09:15 Height 5 ft 3 in Weight 185 lb BMI 32.8 BP 177/81 H Blood Pressure Location Rt brachial Position Sitting Pulse 88 Pulse Source Pulse Oximeter Pulse Oximetry (%) 97 Oxygen Delivery Method Room Air Intake Visit Reasons: Follow up for MRI Intake Note: Pain today 12/17 Radiation Monitor Required: No Accompanied by: Self / Same As Patient Allergies Sulfa (Sulfonamide Antibiotics) Allergy (Unknown, Verified 08/17/23 09:16) Rash tramadol Allergy (Unknown, Verified 08/17/23 09:16) Itching HPI HPI Comments History of Present Illness Details Patient presents today for follow up to discuss recent lumbar spine MRI results. Patient reports worsening low back pain with any movement, has been mostly resting with limited functioning and mobility due to significant pain. Back pain worsens with extension and flexion and radiates into her right buttock and right lower extremity laterally and posteriorly with cramping, numbness and tingling. She has tried short term opioids, NSAIDs, gabapentin, lidocaine patches, methocarbamol with continued pain and limited functioning and disrupted sleep due to moderate-severe pain. Her back pain worsened after she bent over on 07/17/23 and had to be seen at our ER on 07/24/23 due to worsening symptoms when she was diagnosed with L5 compression fracture. Denies any fever, chills, abdominal or groin pain, dizziness, constipation, foot drop, bladder or bowel dysfunction or saddle anesthesia. Reports right lower extremity weakness due to pain. Recent Bone scan showed osteopenia. Per recent MRI results, there is a mild acute edematous upper endplate compression fracture at L5 exhibiting 30% upper endplate height loss. Findings also significant for multilevel progressive spondylitic with worsening stenosis with mass effect and grade 1 retrolisthesis, most significant at L3-L4 and L4-L5. PRIOR: Patient presents today to assess response Bilateral Diagnostic L3-L4 DR L5 MBB on 08/03/[address] Pike. Patient reports 0% pain relief since procedure. She continues to endorse lower back pain, worse on the right side into the right buttocks. Patient avoids sitting or sleeping on the right side due to pain. Denies radicular symptoms into her lower extremities. She is sitting leaning towards the left side. Patient [place] [facility] [place] for constipation, diarrhea and back pain and had no pain relief with Ketorolac 15 mg IM at ER. She continues to report constipation and diarrhea episode with difficulty moving her bowels. Patient declined GI services referral today and has been treating her symptoms with sennosides as needed. Patient has requested oxycodone for pain. I have informed patient given constipation, she should avoid opioids at this time and increase fiber and fluid intake. Denies any fever, chills, malaise, weight loss, abdominal or groin pain, bladder or bowel incontinence or saddle anesthesia. Patient has pending lumbar spine MRI on 08/13/23 to evaluate L5 compression fracture for potential kyphoplasty. Past Procedures: 08/03/23: Bilateral Diagnostic L3-L4 DR L5 MBB 10/27/22: Bilateral Diagnostic SIJ injec tions-80% pain relief for 1.5 days 09/29/22: Ganglion Impar Block-50% pain relief PRIOR: Patient is a pleasant 57 years old female with a history of lumbar DDD, chronic coccydynia and bilateral sacroiliitis, presents today for initial evaluation of lower back pain and coccyx pain. She attributes her pain generators to traumatic slip and fall injury about 5 years ago. Denies any recent trauma, injury or falls. She has had pain in her tailbone radiating towards her lower back and occasionally into her left leg since fall injury. Pain is constant and described as dull, sore, hurting, aching, heavy, spreading, radiating, piercing and occasionally throbbing. Pain increased with sitting, changing positions, or applying pressure directly to her tailbone. Pain affects her daily activities, she cannot sleep supine due to bilateral rotator cuff pain and has been sleeping in a recliner. Pain has been managed with methocarbamol and occasionally OTC medications with continued symptoms. She uses Donut pillow for pressure relief. Denies any previous injections or spine surgery. She reports completing pelvic physiotherapy in [place] with manipulation of her sacroiliac joints with minimal improvements. Denies fever, weight loss, abdominal or groin pain, vaginal bleeding, prolapse or discharge, bladder or bowel incontinence or saddle anesthesia. Patient is a daily smoker and currently not motivated to quit as she recently lost her dog. [facility] Medical History (Updated 08/17/23 @ 11:50 by LYRIC Burton) JORDAN (obstructive sleep apnea) Lumbar spondylosis EUGENIA (iron deficiency anemia) Vitamin D deficiency Restless leg syndrome Depression Plantar fasciitis Osteopenia Migraine Hyperlipidemia DDD (degenerative disc disease), lumbosacral Complete tear of left rotator cuff Carpal tunnel syndrome Surgical History H/O shoulder surgery Social History Alcohol intake: never Patient Tobacco Use Status: Current everyday Tobacco user Tobacco use type: Cigarette Cigarette Packs Per Day: 0.5 Review of Systems Const All systems reviewed & are unremarkable except as noted in HPI and below Neuro Denies Abnormal speech present and Denies Sensory deficit (Neuro) Physical Exam General: Appears afebrile. Uncomfortable due to pain. Alert and oriented. Mood and affect appropriate. Follows and participates in conversation appropriately. Respiratory effort is unlabored. No cough. Able to transition from sit to stand unassisted. Antalgic, slow gait. Report RLE weakness due to moderate-severe low back pain. Back/Spine/Pelvis Other: Limited lumbar ROM due to pain. TTP over paraspinals from L3-S1. Pain in all ranges of motion, lumbar extension and facet loading bilaterally reproduces moderate-severe pain. Moderate pain with lumbar flexion. Strength 5/5 left and 4/5 right hip flexion bilaterally. Cervical Spine: cervical ROM normal, cervical muscular tenderness, No Cervical spine tenderness and No step off deformity Thoracic/Lumbar Spine: thoracic and lumbar spine normal to inspection, No Thoracic/lumbar spine scar(s), Lasegue's sign positive on the right and diffuse, pain with thoraco-lumbar ROM, paraspinal muscle tenderness on the right greater than left, thoraco-lumbar ROM limited, Thoracic/lumbar scoliosis, No thoracic spinal tenderness and lumbar spinal tenderness at L4 Pelvis: buttock tenderness on the right Sacroiliac joints: bilaterally (Ad's left>right) tender to palpation Neuro General: moves all extremities, Normal light touch and pain sensation and deep tendon reflexes 2+ bilaterally Cranial nerves: Yes CN's II-XII intact bilaterally Cognition (Neuro): normal cognition Speech: No Abnormal speech present Gait exam (Neuro): Normal gait present and No Assistive device used Motor exam (neuro): 5/5 motor strength present throughout, no tremor noted and Motor abnormalities not present Sensory Exam: No Sensory deficit (Neuro) Extrem General: Yes capillary refill normal, Yes no clubbing, cyanosis or edema and Yes no calf tenderness Results Reviewed Results Reviewed: CT LUMBAR SPINE WITHOUT CONTRAST 07/24/23 CLINICAL INFORMATION: Low back pain. COMPARISON: Lumbar spine MRI 03/16/2023. TECHNIQUE: Multidetector CT acquisition of the lumbar spine is obtained without contrast. FINDINGS: There is an acute appearing upper endplate compression fracture at L5 exhibiting 20% upper endplate height loss and no significant retropulsion. No additional acute fractures. The remaining lumbar vertebral body heights are maintained. There are multilevel endplate osteophytes. Disc volumes are preserved. Leftward convex lumbar scoliosis. There is sigmoid diverticulosis. Fat-containing inguinal hernias bilaterally. Aortoiliac atherosclerotic calcification. Multilevel degenerative disc disease and facet arthropathy throughout the lumbar spine. Right lateral disc osteophyte protrusions at L1-L2 and L2-L3 result in mild right-sided foraminal encroachment at both of these levels and probable mass effect on the extraforaminal right L2 nerve root at L2-L3. At L3-L4, there is a diffuse annular disc bulge and there is bilateral facet arthropathy and ligamentum flavum thickening contributing to bilateral subarticular zone stenosis. A right lateral disc protrusion likely compresses the exiting right L3 nerve root. At L4-L5, a right lateral disc protrusion likely results in mass effect on the extraforaminal right L4 nerve root and spondylitic changes result in moderate bilateral foraminal stenosis. IMPRESSION: - There is an acute appearing upper endplate compression fracture at L5 exhibiting 20% upper endplate height loss and no significant retropulsion. No additional acute fractures. - At L3-L4, there is a diffuse annular disc bulge and there is bilateral facet arthropathy and ligamentum flavum thickening contributing to bilateral subarticular zone stenosis. A right lateral disc protrusion likely compresses the exiting right L3 nerve root. - At L4-L5, a right lateral disc protrusion likely results in mass effect on the extraforaminal right L4 nerve root and spondylitic changes result in moderate bilateral foraminal stenosis. - Right lateral disc osteophyte protrusions at L1-L2 and L2-L3 result in mild right-sided foraminal encroachment at both of these levels and probable mass effect on the extraforaminal right L2 nerve root at L2-L3. MM/XR DEXA axial skeleton 07/29/23 IMPRESSION: 1. DIAGNOSIS: Osteopenia based on the lowest T-score value of -2.0 in the lumbar spine applying World Health Organization criteria. MR LUMBAR SPINE WITHOUT CONTRAST 08/13/23 CLINICAL INFORMATION: Wedge compression fracture of fifth lumbar vertebra. COMPARISON: CT lumbar spine 07/24/2023. FINDINGS: There are 5 nonrib-bearing lumbar-type vertebral bodies. There is a mild acute edematous upper endplate compression fracture at L5 exhibiting 30% upper endplate height loss. Modic type I endplate signal changes at T12-L1. No additional bone marrow edema. The remaining vertebral body heights are maintained. Leftward convex scoliotic curvature of the lumbar spine. Moderate disc volume loss at L1-L2 and T12-L1. Multilevel endplate osteophytes. L1-L2: Small annular disc bulge. No central canal stenosis and no foraminal stenosis. L2-L3: Grade 1 retrolisthesis. Diffuse annular disc bulge that is in part disc osteophyte and mild bilateral facet arthropathy. No central canal stenosis. There is mild foraminal encroachment bilaterally. L3-L4: Grade 1 retrolisthesis. Diffuse disc osteophyte and moderate bilateral facet arthropathy and ligamentum flavum thickening. Findings in concert result in worsening left subarticular zone stenosis with compression of the traversing left L4 nerve root and disc osteophyte results in mass effect on the extraforaminal L3 nerve roots bilaterally. L4-L5: Diffuse annular disc bulge and moderate bilateral facet arthropathy and ligamentum flavum thickening. Central canal remains patent. The previously seen far right lateral disc protrusion has resorbed without residual mass effect on the extraforaminal right L4 nerve root. Disc osteophyte and facet arthropathy result in worsening moderate bilateral foraminal stenosis at this level. L5-S1: Diffuse annular disc bulge and severe left facet arthropathy. No central canal stenosis. Mild foraminal encroachment bilaterally. IMPRESSION: * There is a mild acute edematous upper endplate compression fracture at L5 exhibiting 30% upper endplate height loss. * At L3-L4, grade 1 retrolisthesis and progressive spondylitic changes result in worsening left subarticular zone stenosis with compression of the traversing left L4 nerve root and disc osteophyte results in mass effect on the extraforaminal L3 nerve roots bilaterally, greater on the right. * At L4-L5, the previously seen far right lateral disc protrusion has resorbed without residual mass effect on the extraforaminal right L4 nerve root. Progressive spondylitic changes at L4-L5 result in worsening moderate bilateral foraminal stenosis. * Leftward convex lumbar scoliosis. Assessment & Plan Assessment & Plan (1) Lumbar spondylosis: Code(s): M47.816 - Spondylosis without myelopathy or radiculopathy, lumbar region (2) Spondylosis of lumbar spine: Code(s): M47.816 - Spondylosis without myelopathy or radiculopathy, lumbar region (3) Traumatic compression fracture of L5 vertebra: Code(s): S32.050A - Wedge compression fracture of fifth lumbar vertebra, initial encounter for closed fracture (4) DDD (degenerative disc disease), lumbosacral: Code(s): M51.37 - Other intervertebral disc degeneration, lumbosacral region (5) Vertebrogenic low back pain: Code(s): M54.51 - Vertebrogenic low back pain (6) Intractable low back pain: Code(s): M54.59 - Other low back pain Plan Lumbar spine MRI results discussed with patient today and noted above. Schedule L5 Kyphoplasty with sedation and fluoroscopy for traumatic L5 compression fracture with worsening low back pain limiting her mobility, walking capacity, ADLs, sleep and quality of life. Expectations, risks and benefits were reviewed. Patient is aware she will be contacted to schedule this procedure. We also briefly discussed SCS trial and implant today to address her chronic low back pain with multilevel degenerative changes and radicular symptoms for longer term pain management. Information pamphlet was provided. For moderate-severe pain, short script for hydrocodone-acetaminophen was provided today. Patient denies constipation. Reports oxycodone was not helpful. She notes dilaudid IM in ER was most beneficial. Patient is aware we are not providing continuous opioid prescribing at this time. She is encouraged to follow up with her Neurology/Sleep Specialist provider for a better fit of CPAP machine for her mild JORDAN. All questions and concerns have been answered and patient agreed with the plan. Follow up for post-op visit and sooner as needed. Medications: New hydrocodone-acetaminophen 10-325 mg Partial Fill upon patient request. 1 tab PO Q8H 7 days PRN 20 tabs 0RF pain (scale score 7-10) M47.816 - Spondylosis without myelopathy or radiculopathy, lumbar region, S32.050A - Wedge compression fracture of fifth lumbar vertebra, initial encounter for closed fracture Discontinued oxycodone Partial Fill upon patient request. Discontinued Reason: Patient Completed Course 5 mg PO Q6H 10 days PRN 30 tabs 0RF pain (scale score 7-10) S32.050A - Wedge compression fracture of fifth lumbar vertebra, initial encounter for closed fracture Coding Level of Care Code Est Pt Level 4 (12879) Diagnoses Lumbar spondylosis M47.816 Traumatic compression fracture of L5 vertebra S32.050A DDD (degenerative disc disease), lumbosacral M51.37 Vertebrogenic low back pain M54.51 Intractable low back pain M54.59
[2023-08-17 09:15] VITALS: BP 177/81; PULSE 88; O2SAT 97; BMI 32.8
== END 2023-08-17 09:36 | disposition home or self-care (01) ==
PROVIDERS: PCP Student in an Organized Health Care Education/Training Program; Visit Provider Nurse Practitioner Family
DX: M47.816 Spondylosis without myelopathy or radiculopathy, lumbar region (principal); S32.050A Wedge compression fracture of fifth lumbar vertebra, initial encounter for closed fracture; M51.37 Other intervertebral disc degeneration, lumbosacral region; M54.51 Vertebrogenic low back pain; M54.59 Other low back pain
CPT/HCPCS: 99214

== ENCOUNTER → 2023-08-17 09:07 | Outpatient (BNVA) | payer MEDICARE, SELFPAY | PROVIDERS: PCP Student in an Organized Health Care Education/Training Program; Visit Provider Nurse Practitioner Family | DX: M47.816 Spondylosis without myelopathy or radiculopathy, lumbar region (principal); M51.37 Other intervertebral disc degeneration, lumbosacral region; M54.51 Vertebrogenic low back pain; M54.59 Other low back pain; S32.050D Wedge compression fracture of fifth lumbar vertebra, subsequent encounter for fracture with routine healing | CPT/HCPCS: 99212 ==

== ENCOUNTER 2023-08-20 05:59 | Day surgery (SDC) | payer MEDICARE, MEDICAID, SELFPAY ==
--- NOTE | 2023-08-19 12:13 | P.CONAN_ITS ---
Documented by User: Maria Fernanda Spencer NP 08/19/23 12:19 HPI - Anesthesia Eval Consult details Narrative: 58yo F for L5 Kyphoplasty PMFSH Active Problems Active Problems: All Active Problems Intractable low back pain (Acute) JORDAN (obstructive sleep apnea) (Acute) Vertebrogenic low back pain (Acute) Traumatic compression fracture of L5 vertebra (Acute) Spondylosis of lumbar spine (Acute) Lumbar spondylosis (Acute) Midline low back pain (Acute) Mild obstructive sleep apnea (Acute) Excessive daytime sleepiness (Acute) Sleep disorder (Acute) Snoring (Acute) Tremor (Acute) Migraine with aura (Acute) Fatigue (Acute) Muscle spasm (Acute) Lumbar radiculopathy (Acute) Restless leg syndrome (Acute) Peripheral neuropathy (Acute) Right calf pain (Acute) Migraine (Acute) Obesity (BMI 30.0-34.9) (Acute) Tobacco dependence (Acute) Coccydynia (Acute) Sacroiliac joint pain (Acute) DDD (degenerative disc disease), lumbosacral (Acute) Past Medical History Medical History JORDAN (obstructive sleep apnea) Lumbar spondylosis EUGENIA (iron deficiency anemia) Vitamin D deficiency Restless leg syndrome Depression Plantar fasciitis Osteopenia Migraine Hyperlipidemia DDD (degenerative disc disease), lumbosacral Complete tear of left rotator cuff Carpal tunnel syndrome Surgical History Surgical History H/O shoulder surgery Social History Social History Alcohol intake: never Patient Tobacco Use Status: Current everyday Tobacco user Tobacco use type: Cigarette Cigarette Packs Per Day: 0.5 Cigarettes Per Day: 10 Use of substances other than those prescribed or required for medical reasons: No Are you DNR?: No Advance Directives: No Advance Directives Information Provided: Yes Meds Allergies Allergy/AdvReac Type Severity Reaction Status Date / Time Sulfa (Sulfonamide Allergy Unknown Rash Verified 08/20/23 06:10 Antibiotics) tramadol Allergy Unknown Itching Verified 08/20/23 06:10 Home Medications ?Medication ?Instructions ?Recorded ?Confirmed ?Last Taken ?Type citalopram 20 mg tablet 20 mg PO DAILY 10/29/22 08/20/23 08/19/23 History methocarbamol 750 mg tablet 750 mg PO BEDTIME PRN muscle spasm 10/29/22 08/20/23 08/18/23 History pramipexole 0.75 mg tablet 0.75 mg PO BEDTIME 10/29/22 08/20/23 08/19/23 History losartan 25 mg tablet 25 mg PO DAILY 05/11/23 08/20/23 08/19/23 History hydroxyzine HCl 25 mg tablet 25 mg PO TID 06/21/23 08/20/23 08/18/23 History sennosides 8.6 mg tablet (Senna 8.6 mg PO DAILY PRN 07/27/23 Unknown History Laxative) Exam Pertinent Lab Results Pertinent Lab Results: Laboratory Tests 08/04/23 12:49 WBC 10.9 H Hgb 14.4 Hct 43.3 Plt Count 250 Sodium 138 Potassium 4.6 Chloride 106 Carbon Dioxide 25 BUN 11 Creatinine 0.77 Narrative Narrative: EKG 07/2023 Vent. Rate : 087 BPM Atrial Rate : 000 BPM P-R Int : 000 ms QRS Dur : 080 ms QT Int : 388 ms P-R-T Axes : 000 027 009 degrees QTc Int : 466 ms Poor data quality Normal sinus rhythm No previous ECGs available Assessment and Plan Assessment Anesthesia Assessment: Chart Reviewed Documented by User: Keshia Sánchez MD 08/20/23 07:27 [facility] Active Problems Active Problems: All Active Problems Intractable low back pain (Acute) JORDAN (obstructive sleep apnea) (Acute)- not using CPAP machine Vertebrogenic low back pain (Acute) Traumatic compression fracture of L5 vertebra (Acute) Spondylosis of lumbar spine (Acute) Lumbar spondylosis (Acute) Midline low back pain (Acute) Excessive daytime sleepiness (Acute) Sleep disorder (Acute) Snoring (Acute) Tremor (Acute) Migraine with aura (Acute) Fatigue (Acute) Muscle spasm (Acute) Lumbar radiculopathy (Acute) Restless leg syndrome (Acute) Peripheral neuropathy (Acute) Right calf pain (Acute) Migraine (Acute) Obesity BMI 33.5 Tobacco dependence (Acute) Coccydynia (Acute) Sacroiliac joint pain (Acute) DDD (degenerative disc disease), lumbosacral (Acute) Smoker Past Medical History Medical History JORDAN (obstructive sleep apnea) Lumbar spondylosis EUGENIA (iron deficiency anemia) Vitamin D deficiency Restless leg syndrome Depression Plantar fasciitis Osteopenia Migraine Hyperlipidemia DDD (degenerative disc disease), lumbosacral Complete tear of left rotator cuff Carpal tunnel syndrome Family History Family history of problems with anesthesia: No Surgical History Surgical History H/O shoulder surgery History of Problems with Anesthesia: No Social History Social History Alcohol intake: never Patient Tobacco Use Status: Current everyday Tobacco user Tobacco use type: Cigarette Cigarette Packs Per Day: 0.5 Cigarettes Per Day: 10 Use of substances other than those prescribed or required for medical reasons: No Are you DNR?: No Advance Directives: No Advance Directives Information Provided: Yes Meds Allergies Allergy/AdvReac Type Severity Reaction Status Date / Time Sulfa (Sulfonamide Allergy Unknown Rash Verified 08/20/23 06:10 Antibiotics) tramadol Allergy Unknown Itching Verified 08/20/23 06:10 Home Medications ?Medication ?Instructions ?Recorded ?Confirmed ?Last Taken ?Type citalopram 20 mg tablet 20 mg PO DAILY 10/29/22 08/20/23 08/19/23 History methocarbamol 750 mg tablet 750 mg PO BEDTIME PRN muscle spasm 10/29/22 08/20/23 08/18/23 History pramipexole 0.75 mg tablet 0.75 mg PO BEDTIME 10/29/22 08/20/23 08/19/23 History losartan 25 mg tablet 25 mg PO DAILY 05/11/23 08/20/23 08/19/23 History hydroxyzine HCl 25 mg tablet 25 mg PO TID 06/21/23 08/20/23 08/18/23 History sennosides 8.6 mg tablet (Senna 8.6 mg PO DAILY PRN 07/27/23 Unknown History Laxative) Exam Height,Weight and Vital Signs: Height 5 ft 3 in Weight 85.729 kg Vital Signs Temp Pulse Resp BP Pulse Ox O2 Del Method 08/20/23 06:29 97.5 F 91 16 154/93 H 98 Room Air Airway Mallampati Class: III TM Dist: >3cm Neck ROM: Full Loose/Missing/Broken Teeth: Yes (Missing tooth bottom right back. Denies broken or loose teeth) Heart: RRR Lungs: CTAB Assessment and Plan Assessment Anesthesia Assessment: Anesthesia Plan Discussed and Chart Reviewed Final Anesthetic Review Family History of Problems with Anesthesia: No History of Problems with Anesthesia: No NPO: Yes ASA Class: III Final Preanesthetic Review: No Changes in Pt Med Stat, Meds/Allgs Chart Reviewed, Consent Obtained/Reviewed and Anes Risks/Benef Reviewed Patient Risk: Intermediate Procedure Risk: Low Assessment/Block/Sedation in SS: Assess/Block/Sedation-SS Anesthetic Plan Anesthetic Plan: GA Disposition: Standard PACU
[2023-08-20] VITALS (7 sets, daily range): BP systolic 117–157; BP diastolic 78–93; PULSE 75–91; RESP 14–18; TEMP 36.4–36.7; O2SAT 94–98; BMI 33.5
--- NOTE | ~2023-08-20 | FL_ITS ---
EXAMINATION: XR FLUOROSCOPY WITH IMAGES CLINICAL INFORMATION: L5 kyphoplasty. COMPARISON: Portions of the MRI lumbar spine dated 08/13/2023. TECHNIQUE: Fluoroscopy Supervised By: Dr. Edilson Pike. Fluoroscopy Time: 79.8 seconds. Cumulative Dose: 28.13 mGy. Images: 1. FINDINGS: The submitted image shows a cannula at the L5 posterior elements, with injection of kyphoplasty cement. FL/FL guidance in OR IMPRESSION: Intraoperative fluoroscopic guidance is provided during L5 kyphoplasty. Please see the patient's Operative Report for full procedural details.
[2023-08-20] MEDS: Lactated Ringers 1,000 ML 100 ML IVCONT (06:30)
--- NOTE | 2023-08-20 07:13 | MHC.SHP ---
Pre-Procedural Eval Section A - 24 Hr Update-Section A only Date of Service: 08/20/23 The patient is an INPATIENT: No Changes since office visit: Yes Patient answered all questions The patient has been examined within 24 hours of the surgical procedure. The History & Physical has been completed within 30 days and I have reviewed it.: No Section B - Complete if H&P > 30 days Chief Complaint: Wedge compression fracture of 5th lumbar vertebra Details of Present Illness: as above Relevant Family History (Specify if Yes): No Relevant Social History: None Present Medications: None Medical History: No relevant PMH History of Previous Operations: No relevant previous surgery Allergies: Allergies Allergy/AdvReac Type Severity Reaction Status Date / Time Sulfa (Sulfonamide Allergy Unknown Rash Verified 08/20/23 06:10 Antibiotics) tramadol Allergy Unknown Itching Verified 08/20/23 06:10 Review of Systems Sugical H&P ROS: Negative: Cardiovascular, Neurological, Psychiatric, Hem-Onc, Allergic/Immunologic, Gastrointestinal, Genitourinary, Integumentary, Endocrine and Eyes/Ears/Nose/Throat and Yes, Specify: Constitution (obesity), Respiratory (JORDAN) and Musculoskeletal (VCF L5) Exam Surgical H&P Exam: Normal: HEENT, Normal: Heart, Normal: Lungs, Normal: Extremities, Normal: Skin and Normal: Neurological and Significant Findings: Abdomen (enlarged 2 to i/a & s/q fat) Plan Diagnosis/Plan: Unchanged I have reviewed the history and physical and performed a pertinent physical examination on my patient. No changes have occurred unless specified. Time Spent With Patient Time: Total time managing care of this patient today ___3_ minutes.
--- NOTE | 2023-08-20 09:04 | P.BOP_ITS ---
Brief Operative Note Date of Service: 08/20/23 Pre-op diagnosis: VCF L5 Post-op diagnosis: same Procedure: L5 kyphoplasty. Surgeon: Edilson Pike MD Anesthesia: GETA Was an Supervisor Compounding And Finishing used for this Procedure?: No Estimated blood loss (mL): 18 Pathology: none sent Condition: stable Disposition: PACU
--- NOTE | 2023-08-20 09:09 | W.PM.OPN ---
Operative Note Operative Note Date of Service: 08/20/23 Narrative: Kyphon Balloon Kyphoplasty L5 with Insertion of HV-R Bone Cement. Informed consent was carefully explained to the patient delineating risk, benefits, and alternatives of the treatment of the L5 fracture. Patient consented for the procedure. She was brought to the operating room and positioned supine on the stretcher, ASA monitors were applied and GETA was induced. Patient was transferred on the operating table prone all pressure points were protected. The entire back was prepped and draped with full body fenestrated drape and self adhesive utility towels.. Two image intensifiers (C-arms) were brought into the AP and lateral positions and the L5 pedicles bilaterally were identified . 7 cm away from midline slightly cephalad to the projection of the bilateral pedicles the skin was infiltrated with mixture of lidocaine 2% and ropivacaine 0.5% one-to-one. Attention was concentrated on the right pedicle 1st. A 10-gauge bevel introducer was advanced through the L5 pedicle to the junction of the pedicle and vertebral body on the right side first. Positioning was confirmed on the AP and lateral plane at regular intervals to ensure bevel position within the cortical boundaries of the pedicle until the body of the vertebra was accessed. Following satisfactory placement of the osteointroducer, the bevel tip was removed, leaving the cannula in place, positioned approximately 1 cm past the posterior vertebral body wall. Through the cannula, a drill was advanced into the vertebral body under fluoroscopic guidance toward the anterior cortex to create a channel, stopping approximately 3-5 mm posterior to the anterior cortical wall in the lateral view and approaching the ipsilateral edge of the spinous process in the AP view. The tip of the drill remained within at least 10 mm away from anterior cortex. Rongeur was inserted through the cannula and space was opened medial and anterior in the vertebral body. After completing the entry into the vertebral body, a 15 mm inflatable bone tamp was inserted through the cannula and advanced under fluoroscopic guidance into the vertebral body near the anterior cortex. The radiopaque marker bands on the bone tamp were identified using AP and lateral images and confirmed to be within the anterior 2/3rd of the body. . The above sequence of instrument placement was then repeated on the left side in the mirroring fashion. Once both bone tamps were in position, they were inflated sequentially in increments of 0.25 to 0.5 cc of contrast, with careful attention being paid to the inflation pressures and balloon position. The inflation was monitored with AP and lateral imaging. The final balloon volume was 1 cc on the left and 0.5 cc on the right side. Maximum pressure applied on either side was approximately 250-350 psi. There was no breach of the lateral wall or anterior cortex of the vertebral body. Direct reduction of the fracture was achieved and end plate movement was noted. Under fluoroscopic imaging, and the use of the bone void fillers, internal fixation was achieved through a low-pressure injection of appropriately cured KYPHON HV-R methylmethacrylate bone cement. The cavity was filled with a total volume of 4.9 cc equally divided between the both sides. No vascular or spinal extravasation of the cement was noted. Once the bone cement had hardened, the bevel tip was reinserted into each of the cannulas to clear it and they were then removed. Post-procedure, the incisions were closed with 2 silk sutures. She awakened extubated and transferred stable to PACU. She recovered uneventfully.
[2023-08-20] MEDS: Acetaminophen 1,000 MG/100 ML PIGGYBACK 400 MG IV (09:55)
== END 2023-08-20 10:45 | disposition home or self-care (01) ==
PROVIDERS: PCP Student in an Organized Health Care Education/Training Program; Visit Provider Anesthesiology
PROC: (CPT 22514; principal; 2023-08-20 07:30)
DX: S32.050A Wedge compression fracture of fifth lumbar vertebra, initial encounter for closed fracture (principal); W01.0XXA Fall on same level from slipping, tripping and stumbling without subsequent striking against object, initial encounter; X50.1XXA Overexertion from prolonged static or awkward postures, initial encounter; Y93.89 Activity, other specified; Y92.9 Unspecified place or not applicable; Y99.9 Unspecified external cause status; M51.37 Other intervertebral disc degeneration, lumbosacral region; M47.816 Spondylosis without myelopathy or radiculopathy, lumbar region; M54.51 Vertebrogenic low back pain; M54.59 Other low back pain; M85.80 Other specified disorders of bone density and structure, unspecified site; R20.0 Anesthesia of skin; R20.2 Paresthesia of skin; D50.9 Iron deficiency anemia, unspecified; G47.33 Obstructive sleep apnea (adult) (pediatric); Z79.899 Other long term (current) drug therapy; Z88.2 Allergy status to sulfonamides; Z88.8 Allergy status to other drugs, medicaments and biological substances; F17.210 Nicotine dependence, cigarettes, uncomplicated; Z98.890 Other specified postprocedural states
CPT/HCPCS: 22514; C1713; J0131; J0690; J1100; J2250; J2371; J2405; J2704; J2795; J3010; Q9967

== ENCOUNTER → 2023-08-20 05:59 | Outpatient (BNV) | payer MEDICARE, MEDICAID, SELFPAY | PROVIDERS: PCP Student in an Organized Health Care Education/Training Program; Visit Provider Anesthesiology | DX: M80.08XA Age-related osteoporosis with current pathological fracture, vertebra(e), initial encounter for fracture (principal) | CPT/HCPCS: 22514 ==

== ENCOUNTER 2023-08-25 08:36 | Outpatient (AMB) | payer MEDICARE, MEDICAID, SELFPAY ==
--- NOTE | 2023-08-25 08:39 | MHC.OFFVIS ---
Intake Vital Signs 08/25/23 08:44 Height 5 ft 3 in Weight 189 lb BMI 33.5 BP 160/90 H Blood Pressure Location Lt brachial Position Sitting Respiration 16 Pulse 93 Pulse Source Pulse Oximeter Pulse Oximetry (%) 100 Oxygen Delivery Method Room Air Intake Visit Reasons: S/p L5 Kyphoplasty 08/20/23 Intake Note: Patient comes in for post-op appointment. Reports pain 6/10. Allergies Sulfa (Sulfonamide Antibiotics) Allergy (Unknown, Verified 08/25/23 08:44) Rash tramadol Allergy (Unknown, Verified 08/25/23 08:44) Itching HPI HPI Comments History of Present Illness Details Arianna is back in my office after kyphoplasty L5 which was performed on him on 08/20/2023. She reports significant pain decreased she reports pain 6/10 today. She still experiences significant pain mostly related to her bilateral sacroiliac joints. She is asking questions whether or not she needs to observe the mobility limitations. The nature of the procedures as well as mobility limitations were explained to the patient. All questions were answered. She is interested in neuromodulation to help her pain. I will schedule her for psychological evaluation with Nathalia bolden. When Suture removals in 5 days. PRIOR: Bilateral Diagnostic L3-L4 L5 MBB on 08/03/23 Patient reports 0% pain relief since procedure. She continues to endorse lower back pain, worse on the right side into the right buttocks. Patient avoids sitting or sleeping on the right side due to pain. Denies radicular symptoms into her lower extremities. She is sitting leaning towards the left side. Patient reports visiting [facility] on 08/04/23 for constipation, diarrhea and back pain and had no pain relief with Ketorolac 15 mg IM at ER. She continues to report constipation and diarrhea episode with difficulty moving her bowels. Patient declined GI services referral today and has been treating her symptoms with sennosides as needed. Patient has requested oxycodone for pain. I have informed patient given constipation, she should avoid opioids at this time and increase fiber and fluid intake. Denies any fever, chills, malaise, weight loss, abdominal or groin pain, bladder or bowel incontinence or saddle anesthesia. Patient has pending lumbar spine MRI on 08/13/23 to evaluate L5 compression fracture for potential kyphoplasty. Past Procedures: 08/03/23: Bilateral Diagnostic L3-L4 DR L5 MBB 10/27/22: Bilateral Diagnostic SIJ injections-80% pain relief for 1.5 days 09/29/22: Ganglion Impar Block-50% pain relief PRIOR: Patient is a pleasant 57 years old female with a history of lumbar DDD, chronic coccydynia and bilateral sacroiliitis, presents today for initial evaluation of lower back pain and coccyx pain. She attributes her pain generators to traumatic slip and fall injury about 5 years ago. Denies any recent trauma, injury or falls. She has had pain in her tailbone radiating towards her lower back and occasionally into her left leg since fall injury. Pain is constant and described as dull, sore, hurting, aching, heavy, spreading, radiating, piercing and occasionally throbbing. Pain increased with sitting, changing positions, or applying pressure directly to her tailbone. Pain affects her daily activities, she cannot sleep supine due to bilateral rotator cuff pain and has been sleeping in a recliner. Pain has been managed with methocarbamol and occasionally OTC medications with continued symptoms. She uses Donut pillow for pressure relief. Denies any previous injections or spine surgery. She reports completing pelvic physiotherapy in [place] with manipulation of her sacroiliac joints with minimal improvements. Denies fever, weight loss, abdominal or groin pain, vaginal bleeding, prolapse or discharge, bladder or bowel incontinence or saddle anesthesia. Patient is a daily smoker and currently not motivated to quit as she recently lost her dog. [facility] Medical History JORDAN (obstructive sleep apnea) Lumbar spondylosis EUGENIA (iron deficiency anemia) Vitamin D deficiency Restless leg syndrome Depression Plantar fasciitis Osteopenia Migraine Hyperlipidemia DDD (degenerative disc disease), lumbosacral Complete tear of left rotator cuff Carpal tunnel syndrome Surgical History H/O shoulder surgery Social History Alcohol intake: never Patient Tobacco Use Status: Current everyday Tobacco user Tobacco use type: Cigarette Cigarette Packs Per Day: 0.5 Cigarettes Per Day: 10 Review of Systems Const All systems reviewed & are unremarkable except as noted in HPI and below Neuro Denies Abnormal speech present and Denies Sensory deficit (Neuro) Physical Exam Vital Signs: Last Vital Signs Pulse 93 08/25/23 08:44 Resp 16 08/25/23 08:44 BP 160/90 H 08/25/23 08:44 Pulse Ox 100 08/25/23 08:44 Oxygen Delivery Method Room Air 08/25/23 08:44 BMI result Body Mass Index 33.5 General: Appears afebrile. Uncomfortable due to pain. Alert and oriented. Mood and affect appropriate. Follows and participates in conversation appropriately. Respiratory effort is unlabored. No cough. Able to transition from sit to stand unassisted. Antalgic, slow gait. Report RLE weakness due to moderate-severe low back pain. Back/Spine/Pelvis Other: Limited lumbar ROM due to pain. TTP over paraspinals from L3-S1. Pain in all ranges of motion, lumbar extension and facet loading bilaterally reproduces moderate-severe pain. Moderate pain with lumbar flexion. Strength 5/5 left and 4/5 right hip flexion bilaterally. Cervical Spine: cervical ROM normal, cervical muscular tenderness, No Cervical spine tenderness and No step off deformity Thoracic/Lumbar Spine: thoracic and lumbar spine normal to inspection, No Thoracic/lumbar spine scar(s), Lasegue's sign positive on the right and diffuse, pain with thoraco-lumbar ROM, paraspinal muscle tenderness on the right greater than left, thoraco-lumbar ROM limited, Thoracic/lumbar scoliosis, No thoracic spinal tenderness and lumbar spinal tenderness at L4 Pelvis: buttock tenderness on the right Sacroiliac joints: bilaterally (Ad's left>right) tender to palpation Neuro General: moves all extremities, Normal light touch and pain sensation and deep tendon reflexes 2+ bilaterally Cranial nerves: Yes CN's II-XII intact bilaterally Cognition (Neuro): normal cognition Speech: No Abnormal speech present Gait exam (Neuro): Normal gait present and No Assistive device used Motor exam (neuro): 5/5 motor strength present throughout, no tremor noted and Motor abnormalities not present Sensory Exam: No Sensory deficit (Neuro) Extrem General: Yes capillary refill normal, Yes no clubbing, cyanosis or edema and Yes no calf tenderness Assessment & Plan Assessment & Plan (1) Lumbar spondylosis: Code(s): M47.816 - Spondylosis without myelopathy or radiculopathy, lumbar region (2) Spondylosis of lumbar spine: Code(s): M47.816 - Spondylosis without myelopathy or radiculopathy, lumbar region (3) Traumatic compression fracture of L5 vertebra: Code(s): S32.050A - Wedge compression fracture of fifth lumbar vertebra, initial encounter for closed fracture (4) DDD (degenerative disc disease), lumbosacral: Code(s): M51.37 - Other intervertebral disc degeneration, lumbosacral region (5) Vertebrogenic low back pain: Code(s): M54.51 - Vertebrogenic low back pain (6) Intractable low back pain: Code(s): M54.59 - Other low back pain Plan Good results of kyphoplasty. She reported pain 10/10 before the procedure today she says that her pain is 6/10. She is back at the midline with her baseline pain mostly related to sacroiliitis and spondylosis of the lumbar spine. Ganglion impar injection 50% pain improvement, diagnostic SI joint bilateral 90 % pain improvement for the 2 days postprocedure. Medial branch blocks did not alleviate her pain at all. MRI demonstrated L5 subacute compression fracture. Kyphoplasty was performed on 08/20/2023. Patient reported very good mobility after the kyphoplasty. She is interested in neuromodulation to decrease her pain for the. I will schedule her for [facility] psychological evaluation. Retrograde SCS with [employer] scientific leads versus Nevro SCS in the thoracic positioned contemplated as the trials for her pain improvement. I can try both of the procedures. In 5 days she will come back to this office and we will remove the sutures. Patient Instructions: I here by testify that I spent 30 minutes in conversation with this patient as well as planning her care and organizing this note. Coding Level of Care Code Est Pt Level 4 (46545) Diagnoses Lumbar spondylosis M47.816 Traumatic compression fracture of L5 vertebra S32.050A DDD (degenerative disc disease), lumbosacral M51.37 Vertebrogenic low back pain M54.51 Intractable low back pain M54.59
[2023-08-25 08:44] VITALS: BP 160/90; PULSE 93; RESP 16; O2SAT 100; BMI 33.5
== END 2023-08-25 09:16 | disposition home or self-care (01) ==
PROVIDERS: PCP Student in an Organized Health Care Education/Training Program; Visit Provider Anesthesiology
DX: M47.816 Spondylosis without myelopathy or radiculopathy, lumbar region (principal); S32.050A Wedge compression fracture of fifth lumbar vertebra, initial encounter for closed fracture; M51.37 Other intervertebral disc degeneration, lumbosacral region; M54.51 Vertebrogenic low back pain; M54.59 Other low back pain
CPT/HCPCS: 99024

== ENCOUNTER → 2023-08-25 08:36 | Outpatient (BNVA) | payer MEDICARE, MEDICAID, SELFPAY | PROVIDERS: PCP Student in an Organized Health Care Education/Training Program; Visit Provider Anesthesiology | DX: Z48.89 Encounter for other specified surgical aftercare (principal); S32.050D Wedge compression fracture of fifth lumbar vertebra, subsequent encounter for fracture with routine healing; M47.816 Spondylosis without myelopathy or radiculopathy, lumbar region; M51.37 Other intervertebral disc degeneration, lumbosacral region; M54.51 Vertebrogenic low back pain; M54.59 Other low back pain; Z98.890 Other specified postprocedural states | CPT/HCPCS: 99212 ==

== ENCOUNTER → 2023-08-27 09:08 | Outpatient (BNVA) | payer MEDICARE, MEDICAID, SELFPAY | PROVIDERS: PCP Student in an Organized Health Care Education/Training Program; Visit Provider Nurse Practitioner Family | DX: Z76.89 Persons encountering health services in other specified circumstances (principal) | CPT/HCPCS: 99211 ==

== ENCOUNTER → 2023-08-31 08:49 | Outpatient (BNVA) | payer MEDICARE, MEDICAID, SELFPAY | PROVIDERS: PCP Student in an Organized Health Care Education/Training Program; Visit Provider Nurse Practitioner Family ==

== ENCOUNTER 2023-09-01 08:21 | Outpatient (AMB) | payer MEDICARE, MEDICAID, SELFPAY ==
--- NOTE | 2023-09-01 08:24 | A.OFFVIS_ITS ---
Vital Signs 09/01/23 08:33 Height 5 ft 3 in Weight 186 lb 2 oz BMI 33.0 BP 150/72 H Blood Pressure Location Lt brachial Position Sitting Respiration 16 Pulse 87 Pulse Source Pulse Oximeter Pulse Oximetry (%) 99 Oxygen Delivery Method Room Air Intake Visit Reasons: Suture Removal Intake Note: Patient comes in for follow up. Reports pain 5/10. Allergies Sulfa (Sulfonamide Antibiotics) Allergy (Unknown, Verified 09/01/23 08:35) Rash tramadol Allergy (Unknown, Verified 09/01/23 08:35) Itching HPI Comments Details: Arianna is back in my office after kyphoplasty L5 which was performed on him on 08/20/2023. She reports significant pain decreased she reports pain 5/10 today. She reports that her pain is getting better every day. She still experiences significant pain mostly related to her bilateral sacroiliac joints. Sacroiliac joint injection bilateral resulted in 80-90% pain improvement after the procedure. Mobility limitations were reinforced today. she is scheduled for psychological evaluation with [facility] to treat her pain with stimulation. After she will be evaluated will proceed with bilateral SI joint stimulation with Curonix. We also can try retrograde [place] [employer] in the caudal canal PNS, we can also try Nevro SCS. Suture removals in 5 days. PRIOR: Bilateral Diagnostic L3-L4 DR L5 MBB on 08/03/23 Patient reports 0% pain relief since procedure. She continues to endorse lower back pain, worse on the right side into the right buttocks. Patient avoids sitting or sleeping on the right side due to pain. Denies radicular symptoms into her lower extremities. She is sitting leaning towards the left side. Patient reports visiting [facility] on 08/04/23 for constipation, diarrhea and back pain and had no pain relief with Ketorolac 15 mg IM at ER. She continues to report constipation and diarrhea episode with difficulty moving her bowels. Patient declined GI services referral today and has been treating her symptoms with sennosides as needed. Patient has requested oxycodone for pain. I have informed patient given constipation, she should avoid opioids at this time and increase fiber and fluid intake. Denies any fever, chills, malaise, weight loss, abdominal or groin pain, bladder or bowel incontinence or saddle anesthesia. Patient has pending lumbar spine MRI on 08/13/23 to evaluate L5 compression fracture for potential kyphoplasty. Past Procedures: 08/03/23: Bilateral Diagnostic L3-L4 DR L5 MBB 10/27/22: Bilateral Diagnostic SIJ injections-80% pain relief for 1.5 days 09/29/22: Ganglion Impar Block-50% pain relief PRIOR: Patient is a pleasant 57 years old female with a history of lumbar DDD, chronic coccydynia and bilateral sacroiliitis, presents today for initial evaluation of lower back pain and coccyx pain. She attributes her pain generators to traumatic slip and fall injury about 5 years ago. Denies any recent trauma, injury or falls. She has had pain in her tailbone radiating towards her lower back and occasionally into her left leg since fall injury. Pain is constant and described as dull, sore, hurting, aching, heavy, spreading, radiating, piercing and occasionally throbbing. Pain increased with sitting, changing positions, or applying pressure directly to her tailbone. Pain affects her daily activities, she cannot sleep supine due to bilateral rotator cuff pain and has been sleeping in a recliner. Pain has been managed with methocarbamol and occasionally OTC medications with continued symptoms. She uses Donut pillow for pressure relief. Denies any previous injections or spine surgery. She reports completing pelvic physiotherapy in [place] with manipulation of her sacroiliac joints with minimal improvements. Denies fever, weight loss, abdominal or groin pain, vaginal bleeding, prolapse or discharge, bladder or bowel incontinence or saddle anesthesia. Patient is a daily smoker and currently not motivated to quit as she recently lost her dog. [facility] Medical History JORDAN (obstructive sleep apnea) Lumbar spondylosis EUGENIA (iron deficiency anemia) Vitamin D deficiency Restless leg syndrome Depression Plantar fasciitis Osteopenia Migraine Hyperlipidemia DDD (degenerative disc disease), lumbosacral Complete tear of left rotator cuff Carpal tunnel syndrome Surgical History H/O shoulder surgery Social History Alcohol intake: never Patient Tobacco Use Status: Current everyday Tobacco user Tobacco use type: Cigarette Cigarette Packs Per Day: 0.5 Cigarettes Per Day: 10 Review of Systems Const All systems reviewed & are unremarkable except as noted in HPI and below Neuro Denies Abnormal speech present and Denies Sensory deficit (Neuro) Physical Exam Vital Signs: Last Vital Signs Pulse 87 09/01/23 08:33 Resp 16 09/01/23 08:33 BP 150/72 H 09/01/23 08:33 Pulse Ox 99 09/01/23 08:33 Oxygen Delivery Method Room Air 09/01/23 08:33 BMI result Body Mass Index 33.0 General: Appears afebrile. Uncomfortable due to pain. Alert and oriented. Mood and affect appropriate. Follows and participates in conversation appropriately. Respiratory effort is unlabored. No cough. Able to transition from sit to stand unassisted. Antalgic, slow gait. Report RLE weakness due to moderate-severe low back pain. Back/Spine/Pelvis Other: Limited lumbar ROM due to pain. TTP over paraspinals from L3-S1. Pain in all ranges of motion, lumbar extension and facet loading bilaterally reproduces moderate-severe pain. Moderate pain with lumbar flexion. Strength 5/5 left and 4/5 right hip flexion bilaterally. Cervical Spine: cervical ROM normal, cervical muscular tenderness, No Cervical spine tenderness and No step off deformity Thoracic/Lumbar Spine: thoracic and lumbar spine normal to inspection, No Thoracic/lumbar spine scar(s), Lasegue's sign positive on the right and diffuse, pain with thoraco-lumbar ROM, paraspinal muscle tenderness on the right greater than left, thoraco-lumbar ROM limited, Thoracic/lumbar scoliosis, No thoracic spinal tenderness and lumbar spinal tenderness at L4 Pelvis: buttock tenderness on the right Sacroiliac joints: bilaterally (Ad's left>right) tender to palpation Neuro General: moves all extremities, Normal light touch and pain sensation and deep tendon reflexes 2+ bilaterally Cranial nerves: Yes CN's II-XII intact bilaterally Cognition (Neuro): normal cognition Speech: No Abnormal speech present Gait exam (Neuro): Normal gait present and No Assistive device used Motor exam (neuro): 5/5 motor strength present throughout, no tremor noted and Motor abnormalities not present Sensory Exam: No Sensory deficit (Neuro) Extrem General: Yes capillary refill normal, Yes no clubbing, cyanosis or edema and Yes no calf tenderness Assessment & Plan Assessment & Plan (1) Lumbar spondylosis: Code(s): M47.816 - Spondylosis without myelopathy or radiculopathy, lumbar region Category: Medical (2) Spondylosis of lumbar spine: Code(s): M47.816 - Spondylosis without myelopathy or radiculopathy, lumbar region Category: Medical (3) Traumatic compression fracture of L5 vertebra: Code(s): S32.050A - Wedge compression fracture of fifth lumbar vertebra, initial encounter for closed fracture Category: Medical (4) DDD (degenerative disc disease), lumbosacral: Code(s): M51.37 - Other intervertebral disc degeneration, lumbosacral region Category: Medical (5) Vertebrogenic low back pain: Code(s): M54.51 - Vertebrogenic low back pain Category: Medical (6) Intractable low back pain: Code(s): M54.59 - Other low back pain Category: Medical Plan Good results of kyphoplasty. She reported pain 10/10 before the procedure today she says that her pain is 5/10. She is back at the midline with her baseline pain mostly related to sacroiliitis and spondylosis of the lumbar spine. Ganglion impar injection 50% pain improvement, diagnostic SI joint bilateral 90 % pain improvement for the 2 days postprocedure. Medial branch blocks did not alleviate her pain at all. MRI demonstrated L5 subacute compression fracture. Kyphoplasty was performed on 08/20/2023. Patient reported very good mobility after the kyphoplasty. She is interested in neuromodulation to decrease her pain which most likely is coming from sacroiliac joints. I will schedule her for [facility] psychological evaluation. Retrograde SCS with [place] [employer] leads versus Nevro SCS in the thoracic positioned contemplated as the trials for her pain improvement. I can try both of the procedures. Curonix PNS for SI joint innervation also can be tried to help her pain. Sutures are removed today wounds are intact. Patient Instructions: I here by testify that I spent 30 minutes in conversation with this patient as well as planning her care and organizing this note. Coding Level of Care Code Est Pt Level 4 (58843) Diagnoses Lumbar spondylosis M47.816 Traumatic compression fracture of L5 vertebra S32.050A DDD (degenerative disc disease), lumbosacral M51.37 Vertebrogenic low back pain M54.51 Intractable low back pain M54.59
[2023-09-01 08:33] VITALS: BP 150/72; PULSE 87; RESP 16; O2SAT 99; BMI 33.0
== END 2023-09-01 08:35 | disposition home or self-care (01) ==
PROVIDERS: PCP Student in an Organized Health Care Education/Training Program; Visit Provider Anesthesiology
DX: M47.816 Spondylosis without myelopathy or radiculopathy, lumbar region (principal); S32.050A Wedge compression fracture of fifth lumbar vertebra, initial encounter for closed fracture; M51.37 Other intervertebral disc degeneration, lumbosacral region; M54.51 Vertebrogenic low back pain; M54.59 Other low back pain
CPT/HCPCS: 99024

== ENCOUNTER → 2023-09-01 08:21 | Outpatient (BNVA) | payer MEDICARE, MEDICAID, SELFPAY | PROVIDERS: PCP Student in an Organized Health Care Education/Training Program; Visit Provider Anesthesiology | DX: Z48.1 Encounter for planned postprocedural wound closure (principal); S32.050D Wedge compression fracture of fifth lumbar vertebra, subsequent encounter for fracture with routine healing; M47.816 Spondylosis without myelopathy or radiculopathy, lumbar region; M51.37 Other intervertebral disc degeneration, lumbosacral region; M54.51 Vertebrogenic low back pain; M54.59 Other low back pain | CPT/HCPCS: 99212 ==

== ENCOUNTER 2023-09-07 08:58 | Outpatient (AMB) | payer OTHER, MEDICAID, SELFPAY ==
--- NOTE | 2023-09-07 09:01 | MHC.OFFVIS ---
Vital Signs 09/07/23 09:10 Height 53 ft Weight 187 lb 8 oz BMI 0.3 BP 140/80 H Blood Pressure Location Rt brachial Position Sitting Pulse 76 Pulse Source Pulse Oximeter Pulse Oximetry (%) 97 Oxygen Delivery Method Room Air Intake Visit Reasons: Follow up - Confirmed Intake Note: Patient presents for f/u. Having trouble with CPAP mask Allergies Sulfa (Sulfonamide Antibiotics) Allergy (Unknown, Verified 09/07/23 09:08) Rash tramadol Allergy (Unknown, Verified 09/07/23 09:08) Itching Medication List - Last Reconciled 09/07/23 by LYRIC Puente amitriptyline 10 - 20 mg (1 - 2 x 10 mg) PO BEDTIME 30 days citalopram 20 mg PO DAILY gabapentin 300 mg PO BID 30 days hydroxyzine HCl 25 mg PO TID lidocaine 5% (Lidoderm) 1 patch topical DAILY lidocaine 5% 1 patch topical DAILY losartan 25 mg PO DAILY magnesium glycinate 200 mg (2 x 100 mg) PO DAILY 30 days meloxicam 15 mg PO DAILY PRN methocarbamol 750 mg PO BEDTIME PRN morphine 15 mg PO Q6H PRN 3 days naloxone 4 mg/actuation (Narcan) 4 mg intranasal Q2M PRN ondansetron 4 mg PO Q8H PRN 2 days pramipexole 0.75 mg PO BEDTIME propranolol ER 60 mg PO BEDTIME 30 days riboflavin (vitamin B2) 400 mg PO DAILY sennosides (Senna Laxative) 8.6 mg PO DAILY PRN ubrogepant (Ubrelvy) 50 - 100 mg (0.5 - 1 x 100 mg) PO ONCE PRN 30 days HPI Comments Details: 58-yr-old female presents for f/u visit. Pt endorses the following interval medical history changes: Pt underwent lumbar kyphoplasty on 08/19 d/t compression fx- caused by bending over. She plans to have f/u pain stimulator placement. She has started CPAP, however, she has had difficulty adjusting to it as she usually sleeps prone and finds herself waking up having taken off the mask. She is open to continue trying it, however is also interested in ENT eval. Pt reports restless legs are a bit more bothersome since the kyphoplasty, may notice more during the day- around 6pm. Still more in the RLE. She does note that she has not been able to move as much since the kyphoplasty. Takes Pramipexole 0.75mg q 10pm. Still prone to waking up with a migraine most mornings. Sometimes it is so bothersome she does not want to get up to take her as needed med. So, now is keeping her as needed med at her bedside. Usually Amitriptyline at bedtime at times. Has started Propranolol. Ubrelvy is more helpful. At times takes the Excedrin at night. Baseline headache characteristics: Mod-Severe. Wakes up in the morning when she opens her eyes with holocranial, pounding, throbbing, pressure headache a/w Photophobia, phonophobia, osmophobia, nausea, tiredness. [facility] Medical History JORDAN (obstructive sleep apnea) Lumbar spondylosis EUGENIA (iron deficiency anemia) Vitamin D deficiency Restless leg syndrome Depression Plantar fasciitis Osteopenia Migraine Hyperlipidemia DDD (degenerative disc disease), lumbosacral Complete tear of left rotator cuff Carpal tunnel syndrome Surgical History (Updated 09/07/23 @ 09:10 by Lexi Dominguez CMA) Previous back surgery H/O shoulder surgery Social History Alcohol intake: never Patient Tobacco Use Status: Current everyday Tobacco user Tobacco use type: Cigarette Cigarette Packs Per Day: 0.5 Cigarettes Per Day: 10 Physical Exam Vital Signs: Last Vital Signs Pulse 76 09/07/23 09:10 BP 140/80 H 09/07/23 09:10 Pulse Ox 97 09/07/23 09:10 Oxygen Delivery Method Room Air 09/07/23 09:10 BMI result Body Mass Index 0.3 Const General: cooperative and no acute distress Orientation/consciousness: patient oriented x3 Resp Effort & Inspection: normal respiratory effort and able to speak in complete sentences Neuro General: patient oriented x3 Cranial nerves: Yes CN's II-XII intact bilaterally Cognition (Neuro): normal cognition Psych Appearance: grossly normal Mental Status: mental status grossly normal Speech and movement: Normal speech and movement present Affect: normal affect Attitude: cooperative Assessment & Plan Assessment & Plan (1) Migraine with aura: Code(s): G43.109 - Migraine with aura, not intractable, without status migrainosus Category: Medical (2) Restless leg syndrome: Code(s): G25.81 - Restless legs syndrome Category: Medical (3) JORDAN (obstructive sleep apnea): Code(s): G47.33 - Obstructive sleep apnea (adult) (pediatric) Category: Medical Plan Reviewed HST- results c/w mild JORDAN w/ AHI 9.5/hr, O2 joseph 85%, average SpO2 92%. JORDAN is mild, she is having am headaches and elevated BP, which can be seen in untreated JORDAN. Continue to try to use APAP 5-20 cmH2O nightly > 4 hrs, in hopes this improves sleep, BP control, and am headaches. Will requent ENT consult for eval for alternate tx's. ? For tremor, RLS, muscle spasm s/s: Trial adding lower dose Pramipexole 01.125mg- 1-3 tabs q evening, prior to 6pm. Continue Pramipexole 0.75mg qhs. Reviewed common s/e's of DA's- including but not limited to compulsive behaviors, orthostatic hypotension, drp attacks, RLS augmentation. ? For overall headache management: Continue to optimize good self-care, including but not limited to maintaining a healthy diet, adequate fluid intake, adequate sleep, and engaging in regular physical activity. Track headaches. ? For acute headache treatment: Continue Ubrogepant (Ubrelvy) 100mg tab, 1/2 - 1 tab (50-100mg) at onset of headache, may repeat in 2 hours. Max of 2 tabs (200mg) per 24 hours. May adjunct with OTC Tylenol 650mg q 4 hours, Ibuprofen 600mg q 6 hours, or Naproxen 440mg q 12 hrs prn. . Try to decrease Excedrin use- avoid using Excedrin in evening/night. Previous acute migraine medication trials: Excedrin. Acute migraine medication contraindications: Triptans d/t HTN. ? For headache prevention medication: Continue Riboflavin 400mg qam Continue Magnesium 400mg qhs Amitriptyline 10-20mg qhs- uses prn- would not increase d/t risk for worsening RLS s/s. ContinuePropranolol ER 60mg qhs- in hopes this helps HTN, sleep, and am headache. Monitor for orthostatic lightheadedness, hypotension. Pt has PCP f/u on Wed. Previous migraine prevention medication trials: No other Migraine prevention medication contraindications: None at this time Future considerations: CGRP MaB. ? ? Pt to follow-up in 6 months or sooner prn. Orders: Referrals Ear/Nose/Throat Referral G47.33 - Obstructive sleep apnea (adult) (pediatric) Medications: New pramipexole before 6pm, continue Pramipexole 0.75mg q10pm 0.125 - 0.375 mg (1 - 3 x 0.125 mg) PO QPM 30 days 90 tabs 1RF Coding Level of Care Code Est Pt Level 4 (77003) Diagnoses Migraine with aura G43.109 Restless leg syndrome G25.81 JORDAN (obstructive sleep apnea) G47.33
[2023-09-07 09:10] VITALS: BP 140/80; PULSE 76; O2SAT 97
== END 2023-09-07 09:45 | disposition home or self-care (01) ==
PROVIDERS: PCP Student in an Organized Health Care Education/Training Program; Visit Provider Nurse Practitioner Family
DX: G43.109 Migraine with aura, not intractable, without status migrainosus (principal); G25.81 Restless legs syndrome; G47.33 Obstructive sleep apnea (adult) (pediatric)
CPT/HCPCS: 99214

== ENCOUNTER → 2023-09-07 08:58 | Outpatient (BNVA) | payer MEDICARE, SELFPAY | PROVIDERS: PCP Student in an Organized Health Care Education/Training Program; Visit Provider Nurse Practitioner Family | DX: G43.109 Migraine with aura, not intractable, without status migrainosus (principal); G25.81 Restless legs syndrome; G47.33 Obstructive sleep apnea (adult) (pediatric) | CPT/HCPCS: 99212 ==

== ENCOUNTER 2023-10-01 06:41 | Day surgery (SDC) | payer MEDICARE, MEDICAID, SELFPAY ==
--- NOTE | 2023-09-29 15:26 | HO.ANESPROP2 ---
Documented by User: Maria Fernanda Spencer NP 09/29/23 15:27 HPI - Anesthesia Eval Consult details Narrative: 58yo F for Peripheral Nerve Stimulator Trial at Sacroiliac Joint s/p kyphoplasty 08/2023 with GA-ETT 7 PMFSH Active Problems Active Problems: All Active Problems Status post kyphoplasty (Acute) Intractable low back pain (Acute) JORDAN (obstructive sleep apnea) (Acute) Vertebrogenic low back pain (Acute) Traumatic compression fracture of L5 vertebra (Acute) Spondylosis of lumbar spine (Acute) Lumbar spondylosis (Acute) Midline low back pain (Acute) Mild obstructive sleep apnea (Acute) Excessive daytime sleepiness (Acute) Sleep disorder (Acute) Snoring (Acute) Tremor (Acute) Migraine with aura (Acute) Fatigue (Acute) Muscle spasm (Acute) Lumbar radiculopathy (Acute) Restless leg syndrome (Acute) Peripheral neuropathy (Acute) Right calf pain (Acute) Migraine (Acute) Obesity (BMI 30.0-34.9) (Acute) Tobacco dependence (Acute) Coccydynia (Acute) Sacroiliac joint pain (Acute) DDD (degenerative disc disease), lumbosacral (Acute) Past Medical History Medical History HTN (hypertension) JORDAN (obstructive sleep apnea) EUGENIA (iron deficiency anemia) Lumbar spondylosis Vitamin D deficiency Restless leg syndrome Depression Plantar fasciitis Osteopenia Migraine Hyperlipidemia DDD (degenerative disc disease), lumbosacral Complete tear of left rotator cuff Carpal tunnel syndrome Family History Family history of problems with anesthesia: No Surgical History Surgical History Previous back surgery H/O shoulder surgery History of Problems with Anesthesia: No Social History Social History Alcohol intake: never Patient Tobacco Use Status: Current everyday Tobacco user Tobacco use type: Cigarette Cigarette Packs Per Day: 0.5 Cigarettes Per Day: 10 Years Smoked: 25 Smoked in Last 30 Days: Yes Use of substances other than those prescribed or required for medical reasons: No Are you DNR?: No Advance Directives: No Advance Directives Information Provided: Yes Meds Allergies Allergy/AdvReac Type Severity Reaction Status Date / Time Sulfa (Sulfonamide Allergy Severe Rash Verified 10/01/23 06:59 Antibiotics) tramadol Allergy Severe Itching Verified 10/01/23 06:59 Home Medications ?Medication ?Instructions ?Recorded ?Confirmed ?Last Taken ?Type citalopram 20 mg tablet 20 mg PO DAILY 10/29/22 10/01/23 08/19/23 History methocarbamol 750 mg tablet 750 mg PO BEDTIME PRN muscle spasm 10/29/22 10/01/23 08/18/23 History pramipexole 0.75 mg tablet 0.75 mg PO BEDTIME 10/29/22 10/01/23 08/19/23 History losartan 25 mg tablet 25 mg PO DAILY 05/11/23 10/01/23 09/30/23 History hydroxyzine HCl 25 mg tablet 25 mg PO TID 06/21/23 10/01/23 08/18/23 History sennosides 8.6 mg tablet (Senna 8.6 mg PO DAILY PRN Constipation 07/27/23 10/01/23 Unknown History Laxative) fluticasone propionate 50 2 spray intranasal DAILY 10/01/23 10/01/23 Unknown History mcg/actuation nasal spray,suspension Exam Pertinent Lab Results Pertinent Lab Results: Laboratory Tests 08/04/23 12:49 WBC 10.9 H Hgb 14.4 Hct 43.3 Plt Count 250 Sodium 138 Potassium 4.6 Chloride 106 Carbon Dioxide 25 BUN 11 Creatinine 0.77 Narrative Narrative: EKG 07/2023 Vent. Rate : 087 BPM Atrial Rate : 000 BPM P-R Int : 000 ms QRS Dur : 080 ms QT Int : 388 ms P-R-T Axes : 000 027 009 degrees QTc Int : 466 ms Poor data quality Normal sinus rhythm No previous ECGs available Assessment and Plan Assessment Anesthesia Assessment: Chart Reviewed Final Anesthetic Review Family History of Problems with Anesthesia: No History of Problems with Anesthesia: No Documented by User: Kaylan Vines MD 10/01/23 07:57 PMFSH Past Medical History Medical History HTN (hypertension) JORDAN (obstructive sleep apnea) EUGENIA (iron deficiency anemia) Lumbar spondylosis Vitamin D deficiency Restless leg syndrome Depression Plantar fasciitis Osteopenia Migraine Hyperlipidemia DDD (degenerative disc disease), lumbosacral Complete tear of left rotator cuff Carpal tunnel syndrome Surgical History Surgical History Previous back surgery H/O shoulder surgery Social History Social History Alcohol intake: never Patient Tobacco Use Status: Current everyday Tobacco user Tobacco use type: Cigarette Cigarette Packs Per Day: 0.5 Cigarettes Per Day: 10 Years Smoked: 25 Smoked in Last 30 Days: Yes Use of substances other than those prescribed or required for medical reasons: No Are you DNR?: No Advance Directives: No Advance Directives Information Provided: Yes Meds Allergies Allergy/AdvReac Type Severity Reaction Status Date / Time Sulfa (Sulfonamide Allergy Severe Rash Verified 10/01/23 06:59 Antibiotics) tramadol Allergy Severe Itching Verified 10/01/23 06:59 Home Medications ?Medication ?Instructions ?Recorded ?Confirmed ?Last Taken ?Type citalopram 20 mg tablet 20 mg PO DAILY 10/29/22 10/01/23 08/19/23 History methocarbamol 750 mg tablet 750 mg PO BEDTIME PRN muscle spasm 10/29/22 10/01/23 08/18/23 History pramipexole 0.75 mg tablet 0.75 mg PO BEDTIME 10/29/22 10/01/23 08/19/23 History losartan 25 mg tablet 25 mg PO DAILY 05/11/23 10/01/23 09/30/23 History hydroxyzine HCl 25 mg tablet 25 mg PO TID 06/21/23 10/01/23 08/18/23 History sennosides 8.6 mg tablet (Senna 8.6 mg PO DAILY PRN Constipation 07/27/23 10/01/23 Unknown History Laxative) fluticasone propionate 50 2 spray intranasal DAILY 10/01/23 10/01/23 Unknown History mcg/actuation nasal spray,suspension Exam Airway Mallampati Class: II TM Dist: >3cm Neck ROM: Full Heart: rrr Lungs: cta Assessment and Plan Assessment Anesthesia Assessment: Anesthesia Plan Discussed Final Anesthetic Review NPO: Yes ASA Class: III Final Preanesthetic Review: No Changes in Pt Med Stat, Meds/Allgs Chart Reviewed, Consent Obtained/Reviewed and Anes Risks/Benef Reviewed Patient Risk: Intermediate Procedure Risk: Low Anesthetic Plan Anesthetic Plan: MAC: Disposition: Standard PACU
[2023-10-01] VITALS (11 sets, daily range): BP systolic 134–159; BP diastolic 73–86; PULSE 73–82; RESP 16–20; TEMP 36.2–36.7; O2SAT 94–98; BMI 33.4
--- NOTE | ~2023-10-01 | FL_ITS ---
EXAMINATION: XR FLUOROSCOPY WITH IMAGES CLINICAL INFORMATION: Peripheral nerve stimulator trial. COMPARISON: None available. TECHNIQUE: Fluoroscopy Supervised By: Dr. Edilson Pike. Fluoroscopy Time: 0.7 minutes. Cumulative Dose: 13.6 mGy. DAP: 3.30 Gy-cm2. Images: 3. FINDINGS: Intraoperative fluoroscopy and spot films were performed during a procedure in the OR. Kyphoplasty cement seen at L5. A cannula is seen at the L5-S1 disc space. 2 stimulation wires are seen extending along the borders of the lumbar spine overlying the sacrum bilaterally. Please see Dr. Edilson Pike's report for complete details. FL/FL guidance in OR IMPRESSION: Intraoperative fluoroscopy and spot films were obtained. Please see Dr. Edilson Pike's report for complete details.
--- NOTE | 2023-10-01 07:18 | PC.NURSE ---
No preop MSRA screen needed per Dr. Pike.
[2023-10-01] MEDS: Lactated Ringers 1,000 ML 100 ML IVCONT (07:43)
--- NOTE | 2023-10-01 07:50 | PC.NURSE ---
Patient in preop, SaO2 ~95% room air. Patient states I had a recent upper respiratory infection, I was prescribed antibiotics and finished 2-3 days ago . Per her, her breathing and coughing is much better. Still has a chronic smokers cough. Lung sounds clear and dim. Dr. Sal made aware. Nebulizer ordered, patient tolerated well.
[2023-10-01] MEDS: Albuterol Sulfate (0.083%) 2.5 MG/3 ML VIAL.NEB INHALE (08:00)
--- NOTE | 2023-10-01 08:53 | MHC.SHP ---
Pre-Procedural Eval Section A - 24 Hr Update-Section A only Date of Service: 10/01/23 The patient is an INPATIENT: No Changes since office visit: Yes Patient answered all questions The patient has been examined within 24 hours of the surgical procedure. The History & Physical has been completed within 30 days and I have reviewed it.: No Section B - Complete if H&P > 30 days Chief Complaint: Sacroiliitis, Details of Present Illness: Sacroiliitis bilateral SI joint pain Relevant Family History (Specify if Yes): No Relevant Social History: None Present Medications: None Medical History: No relevant PMH History of Previous Operations: No relevant previous surgery Allergies: Allergies Allergy/AdvReac Type Severity Reaction Status Date / Time Sulfa (Sulfonamide Allergy Severe Rash Verified 10/01/23 06:59 Antibiotics) tramadol Allergy Severe Itching Verified 10/01/23 06:59 Review of Systems Sugical H&P ROS: Negative: Constitution, Cardiovascular, Respiratory, Neurological, Psychiatric, Hem-Onc, Allergic/Immunologic, Gastrointestinal, Genitourinary, Musculoskeletal, Integumentary, Endocrine and Eyes/Ears/Nose/Throat Exam Surgical H&P Exam: Normal: HEENT, Normal: Heart, Normal: Lungs, Normal: Extremities, Normal: Abdomen, Normal: Skin and Normal: Neurological Plan Diagnosis/Plan: Unchanged I have reviewed the history and physical and performed a pertinent physical examination on my patient. No changes have occurred unless specified. Time Spent With Patient Time: Total time managing care of this patient today __5__ minutes.
[2023-10-01] MEDS: ondansetron HCL 4 MG/2 ML VIAL IVPUSH (10:22)
--- NOTE | 2023-10-01 10:33 | P.BOP_ITS ---
Brief Operative Note Date of Service: 10/01/23 Pre-op diagnosis: Sacroiliac joint pain, sacroiliitis. Post-op diagnosis: same Procedure: Curonix sacroiliac joint innervation PNS bilateral trial. Implants: None permanent Surgeon: Edilson Pike MD Anesthesia: MAC Was an Aged Or Disabled Care Worker used for this Procedure?: No Estimated blood loss (mL): 4 Condition: stable Disposition: PACU
--- NOTE | 2023-10-01 10:34 | P.OP_ITS ---
Operative Note Operative Note Date of Service: 10/01/23 Narrative: Trial of the sacroiliac joint innervation stimulation freedom /curonix bilateral Informed consent was thoroughly explained to the patient before moving him to the operating room.? Risks and benefits were explained and all the questions were answered. Patient ? was taken to the operating room, she was positioned prone on the operating table with the pillow under her pelvis.? [employer] monitors were applied and the patient was sedated. Time out was performed delineated correct name and of the patient, site, side and nature of the procedure, risks of DVT and fire, need for antibiotics. he received 2.g of cefazolin approximately 15 minutes before the onset of the procedure. lower back and buttocks was prepped with ChloraPrep twice, and draped with full body laparoscopic fenestrated drape.? Sterilely draped C-arm was brought over the operating field and sq picture of patient's pelvis was demonstrated on the screen.? Attention was concentrated on the? Right SI joint 1St. The sacral ala on the? right was chosen as a target of the needles insertion. 3 cm above the sacral ala projection in the lumbar area injection of the local anesthetic was performed in the skin. Using 11 blade scalpel small se in the skin was performed. 16 gauge introducer malleable needle? was inserted through the se and advanced toward the sacral alae on the right.? After needle met the bone on sacral ala it was redirected slightly posterior and continued to advance alongside the curvature of the sacral bone.? When the tip of the needle reached the end of the projection of the sacroiliac joint inferiorly advancement stops and guitar wire was introduced into the needle.? It went through the needle without difficulties and advanced 2. cm outside of the tip of the needle. The sacral ala on the left side was then addressed for the 2nd needle insertion. 3 cm above the sacral ala projection in the lumbar area injection of the local anesthetic was performed in the skin. Eleven blade scalpel was used to make small se on the skin. 16 gauge introducer malleable needle was inserted through the se and advanced to were the sacral ala on the left. After needle met the bone on sacral alae it was redirected slightly posterior and continue to advance alongside the curvature of the sacral bone under anterior posterior and lateral intermittent the C-arm views. When the tip of the needle reached the end of the projection of sacral joint inferiorly advancement stop and guitar wire was introduced into the needle. It went through the needle without difficulties in advanced 2 cm outside the tip of the needle... ?After that 8 electrode stimulating array leads were inserted through the needle and advanced to the desired position.? the outside end of the stimulating electrodes tips were cut with the scissors, the stimulating copper wires were inserted into both electrodes.The needle was removed and care was taken not to dislodge the lead.? Anterior posterior and lateral views were performed to demonstrate anterior posterior and lateral views of the electrodes positioned in the patient's pelvis. After that the knots were tied just proximal to the level of the 2nd antenna ? contact.? Exofin glue was applied to the skin a and Steri-Strips was used to fix the stimulating leads to the skin.? Sterile dress ing applied, stimulating pad was applied and taped to the skin using Medipore tape. Upon completion of the procedure the patient was awaken , she was taken outside of the operating room to recovery room where she recovered uneventfully.
[2023-10-01] MEDS: fentaNYL citrate/PF 100 MCG/2 ML VIAL 25 MCG IVPUSH (11:17)
== END 2023-10-01 12:25 | disposition home or self-care (01) ==
PROVIDERS: PCP Student in an Organized Health Care Education/Training Program; Visit Provider Anesthesiology
PROC: (CPT 64555; principal; 2023-10-01 09:00)
DX: M47.816 Spondylosis without myelopathy or radiculopathy, lumbar region (principal); M46.1 Sacroiliitis, not elsewhere classified; M51.37 Other intervertebral disc degeneration, lumbosacral region; M54.51 Vertebrogenic low back pain; M54.59 Other low back pain; G89.4 Chronic pain syndrome; G47.33 Obstructive sleep apnea (adult) (pediatric); F17.210 Nicotine dependence, cigarettes, uncomplicated; Z79.899 Other long term (current) drug therapy
CPT/HCPCS: 64555 ×2; C1897; J0690; J2250; J2405; J2704; J2795; J3010

== ENCOUNTER → 2023-10-01 06:41 | Outpatient (BNV) | payer MEDICARE, MEDICAID, SELFPAY | PROVIDERS: PCP Student in an Organized Health Care Education/Training Program; Visit Provider Anesthesiology | DX: M46.1 Sacroiliitis, not elsewhere classified (principal) | CPT/HCPCS: 64555 ==

== ENCOUNTER 2023-10-08 08:24 | Outpatient (AMB) | payer MEDICARE, MEDICAID, SELFPAY ==
--- NOTE | 2023-10-08 08:26 | MHC.OFFVIS ---
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 Pike. Patient reports over 80% pain relief for a week of trial with significant improvement in her mobility and functioning. She reports some improvement in her sleep as well but states it sleep was fragmented as she was worried to keep her leads in place. Patient is interested to proceed with permanent Curonix PNS implant as next steps for a longer term pain management. Denies any recent cough, cold, infection, fever, any significant changes in her medical history, medications or recent hospitalizations. Pain is rated at 2/10. Patient is very content with outcome of Curonix PNS trial and has been happy and smiling throughout today's visit. The tape was removed. The stimulating battery pad was disconnected from the epidural leads. These sites of the insertion were cleansed with ChloraPrep. Two leads were secured by Steristips in place. The epidural leads were removed and the tips were intact. No erythema, swelling, tenderness or pathological discharge was noted. Bacitracin ointment, dry sterile and Tegaderm dressing were applied. Past Procedures: 10/01/23: Bilateral SI joint stimulation trial with Curonix PNS->80% pain relief 08/20/23: L5 Kyphoplasty->50% pain relief 08/03/23: Bilateral Diagnostic L3-L4 DR L5 MBB-0% pain relief 10/27/22: Bilateral Diagnostic SIJ injections-80% pain relief for 1.5 days 09/29/22: Ganglion Impar Block-50% pain relief PRIOR Dr. Pike: Arianna is back in my office after kyphoplasty L5 which was performed on him on 08/20/2023. She reports significant pain decreased she reports pain 5/10 today. She reports that her pain is getting better every day. She still experiences significant pain mostly related to her bilateral sacroiliac joints. Sacroiliac joint injection bilateral resulted in 80-90% pain improvement after the procedure. Mobility limitations were reinforced today. she is scheduled for psychological evaluation with [facility] point to treat her pain with stimulation. After she will be evaluated will proceed with bilateral SI joint stimulation with Curonix. We also can try retrograde [employer] in the caudal canal PNS, we can also try Nevro SCS. Suture removals in 5 days. PRIOR: Bilateral Diagnostic L3-L4 DR L5 MBB on 08/03/23 Patient reports 0% pain relief since procedure. She continues to endorse lower back pain, worse on the right side into the right buttocks. Patient avoids sitting or sleeping on the right side due to pain. Denies radicular symptoms into her lower extremities. She is sitting leaning towards the left side. Patient reports visiting [facility] on 08/04/23 for constipation, diarrhea and back pain and had no pain relief with Ketorolac 15 mg IM at ER. She continues to report constipation and diarrhea episode with difficulty moving her bowels. Patient declined GI services referral today and has been treating her symptoms with sennosides as needed. Patient has requested oxycodone for pain. I have informed patient given constipation, she should avoid opioids at this time and increase fiber and fluid intake. Denies any fever, chills, malaise, weight loss, abdominal or groin pain, bladder or bowel incontinence or saddle anesthesia. Patient has pending lumbar spine MRI on 08/13/23 to evaluate L5 compression fracture for potential kyphoplasty. Past Procedures: 08/03/23: Bilateral Diagnostic L3-L4 DR L5 MBB 10/27/22: Bilateral Diagnostic SIJ injections-80% pain relief for 1.5 days 09/29/22: Ganglion Impar Block-50% pain relief PRIOR: Patient is a pleasant 57 years old female with a history of lumbar DDD, chronic coccydynia and bilateral sacroiliitis, presents today for initial evaluation of lower back pain and coccyx pain. She attributes her pain generators to traumatic slip and fall injury about 5 years ago. Denies any recent trauma, injury or falls. She has had pain in her tailbone radiating towards her lower back and occasionally into her left leg since fall injury. Pain is constant and described as dull, sore, hurting, aching, heavy, spreading, radiating, piercing and occasionally throbbing. Pain increased with sitting, changing positions, or applying pressure directly to her tailbone. Pain affects her daily activities, she cannot sleep supine due to bilateral rotator cuff pain and has been sleeping in a recliner. Pain has been managed with methocarbamol and occasionally OTC medications with continued symptoms. She uses Donut pillow for pressure relief. Denies any previous injections or spine surgery. She reports completing pelvic physiotherapy in [place] with manipulation of her sacroiliac joints with minimal improvements. Denies fever, weight loss, abdominal or groin pain, vaginal bleeding, prolapse or discharge, bladder or bowel incontinence or saddle anesthesia. Patient is a daily smoker and currently not motivated to quit as she recently lost her dog. [facility] Medical History HTN (hypertension) JORDAN (obstructive sleep apnea) EUGENIA (iron deficiency anemia) Lumbar spondylosis Vitamin D deficiency Restless leg syndrome Depression Plantar fasciitis Osteopenia Migraine Hyperlipidemia DDD (degenerative disc disease), lumbosacral Complete tear of left rotator cuff Carpal tunnel syndrome Surgical History Previous back surgery H/O shoulder surgery Social History Alcohol intake: never Patient Tobacco Use Status: Current everyday Tobacco user Tobacco use type: Cigarette Cigarette Packs Per Day: 0.5 Cigarettes Per Day: 10 Years Smoked: 25 Review of Systems Const All systems reviewed & are unremarkable except as noted in HPI and below Physical Exam Vital Signs: Last Vital Signs Pulse 96 10/08/23 08:29 BP 145/69 H 10/08/23 08:29 Pulse Ox 99 10/08/23 08:29 Oxygen Delivery Method Room Air 10/08/23 08:29 BMI result Body Mass Index 32.8 General: Appears afebrile. Alert and oriented. Mood and affect appropriate. Follows and participates in conversation appropriately. Respiratory effort is unlabored. No cough. Able to transition from sit to stand unassisted. Ambulates with bilaterally normal heel strike and toe off. Leads removed with tips intact. Results Reviewed Results Reviewed: CT LUMBAR SPINE WITHOUT CONTRAST 07/24/23 CLINICAL INFORMATION: Low back pain. COMPARISON: Lumbar spine MRI 03/16/2023. TECHNIQUE: Multidetector CT acquisition of the lumbar spine is obtained without contrast. FINDINGS: There is an acute appearing upper endplate compression fracture at L5 exhibiting 20% upper endplate height loss and no significant retropulsion. No additional acute fractures. The remaining lumbar vertebral body heights are maintained. There are multilevel endplate osteophytes. Disc volumes are preserved. Leftward convex lumbar scoliosis. There is sigmoid diverticulosis. Fat-containing inguinal hernias bilaterally. Aortoiliac atherosclerotic calcification. Multilevel degenerative disc disease and facet arthropathy throughout the lumbar spine. Right lateral disc osteophyte protrusions at L1-L2 and L2-L3 result in mild right-sided foraminal encroachment at both of these levels and probable mass effect on the extraforaminal right L2 nerve root at L2-L3. At L3-L4, there is a diffuse annular disc bulge and there is bilateral facet arthropathy and ligamentum flavum thickening contributing to bilateral subarticular zone stenosis. A right lateral disc protrusion likely compresses the exiting right L3 nerve root. At L4-L5, a right lateral disc protrusion likely results in mass effect on the extraforaminal right L4 nerve root and spondylitic changes result in moderate bilateral foraminal stenosis. IMPRESSION: - There is an acute appearing upper endplate compression fracture at L5 exhibiting 20% upper endplate height loss and no significant retropulsion. No additional acute fractures. - At L3-L4, there is a diffuse annular disc bulge and there is bilateral facet arthropathy and ligamentum flavum thickening contributing to bilateral subarticular zone stenosis. A right lateral disc protrusion likely compresses the exiting right L3 nerve root. - At L4-L5, a right lateral disc protrusion likely results in mass effect on the extraforaminal right L4 nerve root and spondylitic changes result in moderate bilateral foraminal stenosis. - Right lateral disc osteophyte protrusions at L1-L2 and L2-L3 result in mild right-sided foraminal encroachment at both of these levels and probable mass effect on the extraforaminal right L2 nerve root at L2-L3. MM/XR DEXA axial skeleton 07/29/23 IMPRESSION: 1. DIAGNOSIS: Osteopenia based on the lowest T-score value of -2.0 in the lumbar spine applying World Health Organization criteria. MR LUMBAR SPINE WITHOUT CONTRAST 08/13/23 CLINICAL INFORMATION: Wedge compression fracture of fifth lumbar vertebra. COMPARISON: CT lumbar spine 07/24/2023. FINDINGS: There are 5 nonrib-bearing lumbar-type vertebral bodies. There is a mild acute edematous upper endplate compression fracture at L5 exhibiting 30% upper endplate height loss. Modic type I endplate signal changes at T12-L1. No additional bone marrow edema. The remaining vertebral body heights are maintained. Leftward convex scoliotic curvature of the lumbar spine. Moderate disc volume loss at L1-L2 and T12-L1. Multilevel endplate osteophytes. L1-L2: Small annular disc bulge. No central canal stenosis and no foraminal stenosis. L2-L3: Grade 1 retrolisthesis. Diffuse annular disc bulge that is in part disc osteophyte and mild bilateral facet arthropathy. No central canal stenosis. There is mild foraminal encroachment bilaterally. L3-L4: Grade 1 retrolisthesis. Diffuse disc osteophyte and moderate bilateral facet arthropathy and ligamentum flavum thickening. Findings in concert result in worsening left subarticular zone stenosis with compression of the traversing left L4 nerve root and disc osteophyte results in mass effect on the extraforaminal L3 nerve roots bilaterally. L4-L5: Diffuse annular disc bulge and moderate bilateral facet arthropathy and ligamentum flavum thickening. Central canal remains patent. The previously seen far right lateral disc protrusion has resorbed without residual mass effect on the extraforaminal right L4 nerve root. Disc osteophyte and facet arthropathy result in worsening moderate bilateral foraminal stenosis at this level. L5-S1: Diffuse annular disc bulge and severe left facet arthropathy. No central canal stenosis. Mild foraminal encroachment bilaterally. IMPRESSION: * There is a mild acute edematous upper endplate compression fracture at L5 exhibiting 30% upper endplate height loss. * At L3-L4, grade 1 retrolisthesis and progressive spondylitic changes result in worsening left subarticular zone stenosis with compression of the traversing left L4 nerve root and disc osteophyte results in mass effect on the extraforaminal L3 nerve roots bilaterally, greater on the right. * At L4-L5, the previously seen far right lateral disc protrusion has resorbed without residual mass effect on the extraforaminal right L4 nerve root. Progressive spondylitic changes at L4-L5 result in worsening moderate bilateral foraminal stenosis. * Leftward convex lumbar scoliosis. Assessment & Plan Assessment & Plan (1) Intractable low back pain: Code(s): M54.59 - Other low back pain Category: Medical (2) Sacroiliac joint pain: Code(s): M53.3 - Sacrococcygeal disorders, not elsewhere classified Category: Medical (3) Lumbar spondylosis: Code(s): M47.816 - Spondylosis without myelopathy or radiculopathy, lumbar region Category: Medical (4) Sacroiliitis: Code(s): M46.1 - Sacroiliitis, not elsewhere classified Category: Medical (5) Chronic pain syndrome: Code(s): G89.4 - Chronic pain syndrome Category: Medical Plan Schedule for Bilateral SI Joint Curonix PNS Implant with sedation and fluoroscopy for chronic bilateral sacroiliac joint pain given good relief seen from trial.?Reviewed with the patient the risks and benefits of peripheral nerve stimulation implant. All questions and concerns have been answered and patient agreed with the plan. Follow up after PNS implant and sooner as needed. Anticoagulation: Patient is not on anticoagulation Justification for interventional therapy: ? Patient with average pain > 6/10 ? Patient has exhausted conservative therapy ? Bilateral SI joint PNS trial with Curonix >80% pain relief for one week of trial The risks, consequences, alternatives, and benefits of various treatment options were discussed with the patient in great detail, including conservative management, injections and procedures. Coding Level of Care Code Est Pt Level 3 (84562) Diagnoses Intractable low back pain M54.59 Sacroiliac joint pain M53.3 Lumbar spondylosis M47.816 Sacroiliitis M46.1 Chronic pain syndrome G89.4
[2023-10-08 08:29] VITALS: BP 145/69; PULSE 96; O2SAT 99; BMI 32.8
== END 2023-10-08 09:01 | disposition home or self-care (01) ==
PROVIDERS: PCP Student in an Organized Health Care Education/Training Program; Visit Provider Nurse Practitioner Family
DX: M54.59 Other low back pain (principal); M53.3 Sacrococcygeal disorders, not elsewhere classified; M47.816 Spondylosis without myelopathy or radiculopathy, lumbar region; M46.1 Sacroiliitis, not elsewhere classified; G89.4 Chronic pain syndrome
CPT/HCPCS: 99024

== ENCOUNTER → 2023-10-08 08:24 | Outpatient (BNVA) | payer MEDICARE, SELFPAY | PROVIDERS: PCP Student in an Organized Health Care Education/Training Program; Visit Provider Nurse Practitioner Family | DX: M54.59 Other low back pain (principal); M53.3 Sacrococcygeal disorders, not elsewhere classified; M47.816 Spondylosis without myelopathy or radiculopathy, lumbar region; M46.1 Sacroiliitis, not elsewhere classified; G89.4 Chronic pain syndrome | CPT/HCPCS: 99212 ==

== ENCOUNTER 2023-10-29 08:24 | Day surgery (SDC) | payer MEDICARE, MEDICAID, SELFPAY ==
--- NOTE | 2023-10-27 10:41 | HO.ANESPROP2 ---
Documented by User: Maria Fernanda Spencer NP 10/27/23 10:43 HPI - Anesthesia Eval Consult details Narrative: 58yo F for Bilateral Sacroiliac Joint Peripheral Nerve Stimulator Implant s/p trial 09/2023 with [facility] PMFSH Active Problems Active Problems: All Active Problems Chronic pain syndrome (Acute) Sacroiliitis (Acute) Status post kyphoplasty (Acute) Intractable low back pain (Acute) Vertebrogenic low back pain (Acute) Traumatic compression fracture of L5 vertebra (Acute) Spondylosis of lumbar spine (Acute) Midline low back pain (Acute) Mild obstructive sleep apnea (Acute) Excessive daytime sleepiness (Acute) Sleep disorder (Acute) Snoring (Acute) Tremor (Acute) Migraine with aura (Acute) Fatigue (Acute) Muscle spasm (Acute) Lumbar radiculopathy (Acute) Peripheral neuropathy (Acute) Right calf pain (Acute) Obesity (BMI 30.0-34.9) (Acute) Tobacco dependence (Acute) Coccydynia (Acute) Sacroiliac joint pain (Acute) JORDAN (obstructive sleep apnea) (Acute) Lumbar spondylosis (Acute) Restless leg syndrome (Acute) Migraine (Acute) DDD (degenerative disc disease), lumbosacral (Acute) Past Medical History Medical History HTN (hypertension) JORDAN (obstructive sleep apnea) EUGENIA (iron deficiency anemia) Lumbar spondylosis Vitamin D deficiency Restless leg syndrome Depression Plantar fasciitis Osteopenia Migraine Hyperlipidemia DDD (degenerative disc disease), lumbosacral Complete tear of left rotator cuff Carpal tunnel syndrome Family History Family history of problems with anesthesia: No Surgical History Surgical History Previous back surgery H/O shoulder surgery History of Problems with Anesthesia: No Social History Social History Alcohol intake: never Patient Tobacco Use Status: Current everyday Tobacco user Tobacco use type: Cigarette Cigarette Packs Per Day: 0.5 Cigarettes Per Day: 10 Years Smoked: 25 Smoked in Last 30 Days: Yes Patient Interested in Nicotine Replacement: No Are you DNR?: No Advance Directives: No Advance Directives Information Provided: Yes Nutrition Risks: No Nutritional Risk Meds Allergies Allergy/AdvReac Type Severity Reaction Status Date / Time Sulfa (Sulfonamide Allergy Severe Rash Verified 10/29/23 08:34 Antibiotics) tramadol Allergy Severe Itching Verified 10/29/23 08:34 Home Medications ?Medication ?Instructions ?Recorded ?Confirmed ?Last Taken ?Type citalopram 20 mg tablet 20 mg PO DAILY 10/29/22 10/29/23 08/19/23 History methocarbamol 750 mg tablet 750 mg PO BEDTIME PRN muscle spasm 10/29/22 10/29/23 08/18/23 History pramipexole 0.75 mg tablet 0.75 mg PO BEDTIME 10/29/22 10/29/23 08/19/23 History losartan 25 mg tablet 25 mg PO DAILY 05/11/23 10/29/23 09/30/23 History hydroxyzine HCl 25 mg tablet 25 mg PO TID 06/21/23 10/29/23 08/18/23 History sennosides 8.6 mg tablet (Senna 8.6 mg PO DAILY PRN Constipation 07/27/23 10/29/23 Unknown History Laxative) fluticasone propionate 50 2 spray intranasal DAILY 10/01/23 10/29/23 Unknown History mcg/actuation nasal spray,suspension Exam Pertinent Lab Results Pertinent Lab Results: Laboratory Tests 08/04/23 12:49 WBC 10.9 H Hgb 14.4 Hct 43.3 Plt Count 250 Sodium 138 Potassium 4.6 Chloride 106 Carbon Dioxide 25 BUN 11 Creatinine 0.77 Narrative Narrative: EKG 2023 Vent. Rate : 087 BPM Atrial Rate : 000 BPM P-R Int : 000 ms QRS Dur : 080 ms QT Int : 388 ms P-R-T Axes : 000 027 009 degrees QTc Int : 466 ms Poor data quality Normal sinus rhythm No previous ECGs available Assessment and Plan Assessment Anesthesia Assessment: Chart Reviewed Final Anesthetic Review Family History of Problems with Anesthesia: No History of Problems with Anesthesia: No Documented by User: Alex Sal MD 10/29/23 09:57 PMFSH Past Medical History Medical History HTN (hypertension) JORDAN (obstructive sleep apnea) EUGENIA (iron deficiency anemia) Lumbar spondylosis Vitamin D deficiency Restless leg syndrome Depression Plantar fasciitis Osteopenia Migraine Hyperlipidemia DDD (degenerative disc disease), lumbosacral Complete tear of left rotator cuff Carpal tunnel syndrome Surgical History Surgical History Previous back surgery H/O shoulder surgery Social History Social History Alcohol intake: never Patient Tobacco Use Status: Current everyday Tobacco user Tobacco use type: Cigarette Cigarette Packs Per Day: 0.5 Cigarettes Per Day: 10 Years Smoked: 25 Smoked in Last 30 Days: Yes Patient Interested in Nicotine Replacement: No Are you DNR?: No Advance Directives: No Advance Directives Information Provided: Yes Nutrition Risks: No Nutritional Risk Meds Allergies Allergy/AdvReac Type Severity Reaction Status Date / Time Sulfa (Sulfonamide Allergy Severe Rash Verified 10/29/23 08:34 Antibiotics) tramadol Allergy Severe Itching Verified 10/29/23 08:34 Home Medications ?Medication ?Instructions ?Recorded ?Confirmed ?Last Taken ?Type citalopram 20 mg tablet 20 mg PO DAILY 10/29/22 10/29/23 08/19/23 History methocarbamol 750 mg tablet 750 mg PO BEDTIME PRN muscle spasm 10/29/22 10/29/23 08/18/23 History pramipexole 0.75 mg tablet 0.75 mg PO BEDTIME 10/29/22 10/29/23 08/19/23 History losartan 25 mg tablet 25 mg PO DAILY 05/11/23 10/29/23 09/30/23 History hydroxyzine HCl 25 mg tablet 25 mg PO TID 06/21/23 10/29/23 08/18/23 History sennosides 8.6 mg tablet (Senna 8.6 mg PO DAILY PRN Constipation 07/27/23 10/29/23 Unknown History Laxative) fluticasone propionate 50 2 spray intranasal DAILY 10/01/23 10/29/23 Unknown History mcg/actuation nasal spray,suspension Exam Airway Mallampati Class: II TM Dist: <=3cm Neck ROM: Full Loose/Missing/Broken Teeth: No Heart: ok Lungs: ok Assessment and Plan Assessment Anesthesia Assessment: Anesthesia Plan Discussed Final Anesthetic Review NPO: Yes ASA Class: III Final Preanesthetic Review: No Changes in Pt Med Stat, Meds/Allgs Chart Reviewed, Consent Obtained/Reviewed and Anes Risks/Benef Reviewed Patient Risk: Intermediate Procedure Risk: Intermediate Anesthetic Plan Anesthetic Plan: GA and Agree w/ Assess. and Plan Disposition: Standard PACU
[2023-10-29] VITALS (11 sets, daily range): BP systolic 126–157; BP diastolic 62–106; PULSE 68–84; RESP 16–20; TEMP 36.6–36.7; O2SAT 93–98; BMI 32.6
--- NOTE | ~2023-10-29 | FL_ITS ---
EXAMINATION: XR FLUOROSCOPY WITH IMAGES CLINICAL INFORMATION: Sacroiliac joint PNS implant. COMPARISON: None available. TECHNIQUE: Fluoroscopy Supervised By: Dr. Edilson Pike. Fluoroscopy Time: 1 minute 21 seconds. Cumulative Dose: 23.101 mGy. DAP: 9.6453 Gy-cm2. Images: 10. FINDINGS: Intraoperative fluoroscopy and spot films were performed during a procedure in the OR. Kyphoplasty cement seen in the L5 vertebral body. Two spinal stimulation leads are seen overlying the left and right hemisacrum. Please correlate with Dr. Edilson Pike's report for complete details. FL/FL guidance in OR IMPRESSION: Intraoperative fluoroscopy and spot films were obtained. Please see Dr. Edilson Pike's report for complete details.
[2023-10-29] MEDS: Lactated Ringers 1,000 ML 100 ML IVCONT (09:27)
--- NOTE | 2023-10-29 09:37 | P.HPSUR_ITS ---
Pre-Procedural Eval Section A - 24 Hr Update-Section A only Date of Service: 10/29/23 The patient is an INPATIENT: No Changes since office visit: Yes Patient answered all questions The patient has been examined within 24 hours of the surgical procedure. The History & Physical has been completed within 30 days and I have reviewed it.: No Section B - Complete if H&P > 30 days Chief Complaint: Sacrococcygeal disorders,sacroilitis.chronic pain Details of Present Illness: Sacroiliitis bilateral SI joint pain Relevant Family History (Specify if Yes): No Relevant Social History: None Present Medications: None Medical History: No relevant PMH History of Previous Operations: No relevant previous surgery Allergies: Allergies Allergy/AdvReac Type Severity Reaction Status Date / Time Sulfa (Sulfonamide Allergy Severe Rash Verified 10/29/23 08:34 Antibiotics) tramadol Allergy Severe Itching Verified 10/29/23 08:34 Review of Systems Sugical H&P ROS: Negative: Constitution, Cardiovascular, Respiratory, Neurological, Psychiatric, Hem-Onc, Allergic/Immunologic, Gastrointestinal, Genitourinary, Musculoskeletal, Integumentary, Endocrine and Eyes/Ears/Nose/Th roat Exam Surgical H&P Exam: Normal: HEENT, Normal: Heart, Normal: Lungs, Normal: Extremities, Normal: Abdomen, Normal: Skin and Normal: Neurological Plan Diagnosis/Plan: Unchanged I have reviewed the history and physical and performed a pertinent physical examination on my patient. No changes have occurred unless specified. Time Spent With Patient Time: Total time managing care of this patient today ____ minutes.
--- NOTE | 2023-10-29 09:55 | W.PM.OPN ---
Operative Note Operative Note Date of Service: 10/29/23 Narrative: Right hip steroid injection. Informed consent was explained to the patient. All questions were explained and answered. The patient was taken inside of the operating room where she was positioned left lateral decubitus on operating table.. ASA monitors were applied and the patient was moderately sedated. Time-out was performed delineating patient's name and date of , correct site, side, the nature of the procedure, patient's allergy, preoperative antibiotic if needed, need for VT prophylaxis.. All operating room staff was participating in OR time-out procedure. Right hip area of the patient was prepped with ChloraPrep and draped with sterile towels. C-arm was brought over the operating field and picture of left and right lateral views of the bilateral hip joints were delineated on the screen. The smaller joint silhouette was chosen as the target. Projection of the right trochanter to the skin was chosen as the initial needle insertion point. After that the skin and subcutaneous tissues was anesthetized with 2% lidocaine 2.5 mL. 22 gauge 5 in long needle was inserted through the skin and started to advance to the joint space under intermittent lateral and anterior posterior views. When needle entered the capsule of the joint small amount of the contrast was injected delineating intra-articular space. After that treatment solution containing 3 cc of lidocaine 2%, 2 cc of bupivacaine 0.5% and 40 mg of Kenalog was injected into the joint. The needle was withdrawn sterile dressing was applied.The patient tolerated procedure well.
--- NOTE | 2023-10-29 10:02 | PC.NURSE ---
dr. bear aware that patient is a smoker. lungs are clear, but diminished in bases. no interventions at this time. ok to proceed.
--- NOTE | 2023-10-29 12:42 | PM.OP ---
Brief Operative Note Date of Service: 10/29/23 Pre-op diagnosis: Sacroiliac joint dysfunction bilateral, sacroiliitis. Post-op diagnosis: same Procedure: Implantation of PNS Curonix for bilateral sacroiliac joint innervation stimulation. Implants: To stimulating leads Curonix Surgeon: Edilson Pike MD Anesthesia: MAC Was an Prescription Benefit Specialist used for this Procedure?: No Estimated blood loss (mL): 8 Pathology: none sent Condition: stable Disposition: PACU
[2023-10-29] MEDS: fentaNYL citrate/PF 100 MCG/2 ML VIAL 50 MCG IVPUSH (12:43)
--- NOTE | 2023-10-29 12:45 | P.OP_ITS ---
Operative Note Operative Note Date of Service: 10/29/23 Narrative: Implantation of the sacroiliac joint innervation stimulation freedom /curonix bilateral Informed consent was thoroughly explained to the patient before moving him to the operating room.? Risks and benefits were explained and all the questions were answered. Patient ? was taken to the operating room,she was positioned prone on the operating table with the pillow under her pelvis.? [employer] sthes[employer] monitors were applied and LMA was inserted. General anesthesia was applied.. Time out was performed delineated correct name and of the patient, site, side and nature of the procedure, risks of DVT and fire, need for antibiotics. he received 2.g of cefazolin approximately 25 minutes before the onset of the procedure. lower back and buttocks was prepped with ChloraPrep twice, and draped with sterile towels.? Sterilely draped C-arm was brought over the operating field and sq picture of patient's pelvis was demonstrated on the screen.? Attention was c oncentrated on the? Right SI joint 1St. The sacral ala on the? right was chosen as a target of the needles insertion. 3 cm above the sacral ala projection in the lumbar area injection of the local anesthetic was performed in the skin. Using 10 blade scalpel a 5 cm vertical incision was performed in paramedian fashion. Thorough hemostasis was performed the wound was deepened then widened until superficial fascia was reached and overlying tissues were removed from the superficial fascia. 16 gauge introducer malleable needle? was inserted through the superficial fascia and advanced toward the sacral alae on the right.? After needle met the bone on sacral ala it was redirected slightly posterior and continued to advance alongside the curvature of the sacral bone.? When the tip of the needle reached the end of the projection of the sacroiliac joint inferiorly the lateral image was obtained demonstrating the position of the introducer lead very close to the curvature of the sacral bone. The stimulating lead was inserted through the needle and it was advanced into appropriate position corresponding to the position which was established during the trial. After that the attention was concentrated on the left side: The sacral ala on the? left was chosen as a target of the needles insertion. 3 cm above the sacral ala projection in the lumbar area injection of the local anesthetic was performed in the skin. Using 10 blade scalpel vertical incision 5 cm long was performed, thorough hemostasis was performed, superficial fascia was freed from overlying fat tissues. 16 gauge introducer malleable needle? was inserted through the superficial fascia and advanced toward the sacral alae on the left.? After needle met the bone on sacral ala it was redirected slightly posterior and continued to advance alongside the curvature of the sacral bone.? When the tip of the needle reached the end of the projection of the sacroiliac joint inferiorly advancement stops and the stimulating lead was inserted through the needle and it was advanced into appropriate position corresponding to the position which was established during the trial. AP and lateral images were obtained and they seem to be satisfactory. Both stimulating leads were freed from the driving stylets and thin copper conducting stylets were inserted into both leads. After that the needles were withdrawn with care taken to keep the leads in place. Both wounds were irrigated with normal saline containing vancomycin and Tycron anchoring sutures were obtained and the stimulating electrodes were anchored to the underlying fascia using 2 interrupted Tycron sutures. Irrigation of the wounds was performed using vancomycin containing normal saline. After that attention was concentrated on the projection of the patient's L3-L4 lumbar vertebra spinal processes. Six cm vertical incision was performed to accommodate the on 10 I am calling device. The wound was widened and deepened using electrocautery and all dissection. The malleable introducer needle was used as tunneling device to connect midline lower back incision bilateral electrodes incision. The stimulating electrodes were inserted into the needles and advanced into the midline incision. The stimulating electrodes were tied on itself to secure conducting copper wire inside the stimulating electrode. After that the knots were tied just below the level of the 2nd antenna ? contacts.? The coil was formed above the 2ndcontacts using both of the leads, the coil was fixated with free silk ties. After that the coil was inserted into the wound and positioned to avoid tension on the leads. The wounds were inspected and hemostasis was adequate. Two-0 Polysorb sutures was used to close all 3 wounds, 2-0 Polysorb sutures were used to approximate the level of the skin. Driss were applied to the level of the skin and bacitracin ointment was smeared on the wounds. Sterile 4 x 4 were used to cover all the wounds and Tegaderm dressing was applied. The patient tolerated the procedure well. She was awakened taken outside of the operating room to recovery room where she recovered uneventfully.
[2023-10-29] MEDS: ondansetron HCL 4 MG/2 ML VIAL IVPUSH (13:04)
[2023-10-29] MEDS: Acetaminophen 325 MG TABLET 650 MG PO (13:22)
[2023-10-29] MEDS: oxyCODONE HCl Immed Release 5 MG TABLET PO (13:23)
== END 2023-10-29 14:08 | disposition home or self-care (01) ==
PROVIDERS: PCP Student in an Organized Health Care Education/Training Program; Visit Provider Anesthesiology
PROC: (CPT 64555; principal; 2023-10-29 10:00)
DX: M53.3 Sacrococcygeal disorders, not elsewhere classified (principal); G89.4 Chronic pain syndrome; M46.1 Sacroiliitis, not elsewhere classified
CPT/HCPCS: 64555 ×2; 64590; C1787; C1816; J0690; J2405; J2704; J2795; J3010; J3370

== ENCOUNTER → 2023-10-29 08:24 | Outpatient (BNV) | payer MEDICARE, MEDICAID, SELFPAY | PROVIDERS: PCP Student in an Organized Health Care Education/Training Program; Visit Provider Anesthesiology | DX: G89.4 Chronic pain syndrome (principal); M53.3 Sacrococcygeal disorders, not elsewhere classified; M46.1 Sacroiliitis, not elsewhere classified | CPT/HCPCS: 64555; 64590 ==

== ENCOUNTER 2023-11-05 08:55 | Outpatient (AMB) | payer MEDICARE, MEDICAID, SELFPAY ==
--- NOTE | 2023-11-05 08:59 | A.OFFVIS_ITS ---
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 Pike. Patient reports 50% pain relief since procedure with improvement in her mobility, functioning and sleep. She has been taking Morphine IR 15 mg prn mostly once a day at bedtime for post-operative pain control without any side effects. Pain is rated at 5/10. The tape was removed today. Her three wounds are clean, driss are intact, without pathological discharge, redness, swelling, tenderness on palpation and signs of inflammation or infection. The wounds were washed with ChloraPrep and sterile dressing with bacitracin ointment was applied with Tegaderm films. Patient is wearing abdominal belt. Jacquelyn Pride was also present today and educated patient on Curonix device care and activity restrictions. Denies any recent cough, cold, infection, fever, any significant changes in her medical history, medications or recent hospitalizations. Past Procedures: 10/29/23: Bilateral SI joint stimulation implant with Curonix PNS 10/01/23: Bilateral SI joint stimulation trial with Curonix PNS->80% pain relief 08/20/23: L5 Kyphoplasty->50% pain relief 08/03/23: Bilateral Diagnostic L3-L4 DR L5 MBB-0% pain relief 10/27/22: Bilateral Diagnostic SIJ injections-80% pain relief for 1.5 days 09/29/22: Ganglion Impar Block-50% pain relief PRIOR Dr. Pike: Arianna is back in my office after kyphoplasty L5 which was performed on him on 08/20/2023. She reports significant pain decreased she reports pain 5/10 today. She reports that her pain is getting better every day. She still experiences significant pain mostly related to her bilateral sacroiliac joints. Sacroiliac joint injection bilateral resulted in 80-90% pain improvement after the procedure. Mobility limitations were reinforced today. she is scheduled for psychological evaluation with [employer] [facility] to treat her pain with stimulation. After she will be evaluated will proceed with bilateral SI joint stimulation with Curonix. We also can try retrograde [place] [employer] in the caudal canal PNS, we can also try Nevro SCS. Suture removals in 5 days. PRIOR: Bilateral Diagnostic L3-L4 DR L5 MBB on 08/03/23 Patient reports 0% pain relief since procedure. She continues to endorse lower back pain, worse on the right side into the right buttocks. Patient avoids sitting or sleeping on the right side due to pain. Denies radicular symptoms into her lower extremities. She is sitting leaning towards the left side. Patient reports visiting [facility] on 08/04/23 for constipation, diarrhea and back pain and had no pain relief with Ketorolac 15 mg IM at ER. She continues to report constipation and diarrhea episode with difficulty moving her bowels. Patient declined GI services referral today and has been treating her symptoms with sennosides as needed. Patient has requested oxycodone for pain. I have informed patient given constipation, she should avoid opioids at this time and increase fiber and fluid intake. Denies any fever, chills, malaise, weight loss, abdominal or groin pain, bladder or bowel incontinence or saddle anesthesia. Patient has pending lumbar spine MRI on 08/13/23 to evaluate L5 compression fracture for potential kyphoplasty. Past Procedures: 08/03/23: Bilateral Diagnostic L3-L4 DR L5 MBB 10/27/22: Bilateral Diagnostic SIJ injections-80% pain relief for 1.5 days 09/29/22: Ganglion Impar Block-50% pain relief PRIOR: Patient is a pleasant 57 years old female with a history of lumbar DDD, chronic coccydynia and bilateral sacroiliitis, presents today for initial evaluation of lower back pain and coccyx pain. She attributes her pain generators to traumatic slip and fall injury about 5 years ago. Denies any recent trauma, injury or falls. She has had pain in her tailbone radiating towards her lower back and occasionally into her left leg since fall injury. Pain is constant and described as dull, sore, hurting, aching, heavy, spreading, radiating, piercing and occasionally throbbing. Pain increased with sitting, changing positions, or applying pressure directly to her tailbone. Pain affects her daily activities, she cannot sleep supine due to bilateral rotator cuff pain and has been sleeping in a recliner. Pain has been managed with methocarbamol and occasionally OTC medications with continued symptoms. She uses Donut pillow for pressure relief. Denies any previous injections or spine surgery. She reports completing pelvic physiotherapy in [place] with manipulation of her sacroiliac joints with minimal improvements. Denies fever, weight loss, abdominal or groin pain, vaginal bleeding, prolapse or discharge, bladder or bowel incontinence or saddle anesthesia. Patient is a daily smoker and currently not motivated to quit as she recently lost her dog. [facility] Medical History HTN (hypertension) JORDAN (obstructive sleep apnea) EUGENIA (iron deficiency anemia) Lumbar spondylosis Vitamin D deficiency Restless leg syndrome Depression Plantar fasciitis Osteopenia Migraine Hyperlipidemia DDD (degenerative disc disease), lumbosacral Complete tear of left rotator cuff Carpal tunnel syndrome Surgical History Previous back surgery H/O shoulder surgery Social History Alcohol intake: never Patient Tobacco Use Status: Current everyday Tobacco user Tobacco use type: Cigarette Cigarette Packs Per Day: 0.5 Cigarettes Per Day: 10 Years Smoked: 25 Review of Systems Const All systems reviewed & are unremarkable except as noted in HPI and below Physical Exam General: Appears afebrile. Alert and oriented. Mood and affect appropriate. Follows and participates in conversation appropriately. Respiratory effort is unlabored. No cough. Able to transition from sit to stand unassisted. Ambulates with bilaterally normal heel strike and toe off. All three wound incisions are benign, intact, without any pathological discharge or signs of infection. Driss are intact. Dressings changed today in clinic. Results Reviewed Results Reviewed: CT LUMBAR SPINE WITHOUT CONTRAST 07/24/23 CLINICAL INFORMATION: Low back pain. COMPARISON: Lumbar spine MRI 03/16/2023. TECHNIQUE: Multidetector CT acquisition of the lumbar spine is obtained without contrast. FINDINGS: There is an acute appearing upper endplate compression fracture at L5 exhibiting 20% upper endplate height loss and no significant retropulsion. No additional acute fractures. The remaining lumbar vertebral body heights are maintained. There are multilevel endplate osteophytes. Disc volumes are preserved. Leftward convex lumbar scoliosis. There is sigmoid diverticulosis. Fat-containing inguinal hernias bilaterally. Aortoiliac atherosclerotic calcification. Multilevel degenerative disc disease and facet arthropathy throughout the lumbar spine. Right lateral disc osteophyte protrusions at L1-L2 and L2-L3 result in mild right-sided foraminal encroachment at both of these levels and probable mass effect on the extraforaminal right L2 nerve root at L2-L3. At L3-L4, there is a diffuse annular disc bulge and there is bilateral facet arthropathy and ligamentum flavum thickening contributing to bilateral subarticular zone stenosis. A right lateral disc protrusion likely compresses the exiting right L3 nerve root. At L4-L5, a right lateral disc protrusion likely results in mass effect on the extraforaminal right L4 nerve root and spondylitic changes result in moderate bilateral foraminal stenosis. IMPRESSION: - There is an acute appearing upper endplate compression fracture at L5 exhibiting 20% upper endplate height loss and no significant retropulsion. No additional acute fractures. - At L3-L4, there is a diffuse annular disc bulge and there is bilateral facet arthropathy and ligamentum flavum thickening contributing to bilateral subarticular zone stenosis. A right lateral disc protrusion likely compresses the exiting right L3 nerve root. - At L4-L5, a right lateral disc protrusion likely results in mass effect on the extraforaminal right L4 nerve root and spondylitic changes result in moderate bilateral foraminal stenosis. - Right lateral disc osteophyte protrusions at L1-L2 and L2-L3 result in mild right-sided foraminal encroachment at both of these levels and probable mass effect on the extraforaminal right L2 nerve root at L2-L3. MM/XR DEXA axial skeleton 07/29/23 IMPRESSION: 1. DIAGNOSIS: Osteopenia based on the lowest T-score value of -2.0 in the lumbar spine applying World Health Organization criteria. MR LUMBAR SPINE WITHOUT CONTRAST 08/13/23 CLINICAL INFORMATION: Wedge compression fracture of fifth lumbar vertebra. COMPARISON: CT lumbar spine 07/24/2023. FINDINGS: There are 5 nonrib-bearing lumbar-type vertebral bodies. There is a mild acute edematous upper endplate compression fracture at L5 exhibiting 30% upper endplate height loss. Modic type I endplate signal changes at T12-L1. No additional bone marrow edema. The remaining vertebral body heights are maintained. Leftward convex scoliotic curvature of the lumbar spine. Moderate disc volume loss at L1-L2 and T12-L1. Multilevel endplate osteophytes. L1-L2: Small annular disc bulge. No central canal stenosis and no foraminal stenosis. L2-L3: Grade 1 retrolisthesis. Diffuse annular disc bulge that is in part disc osteophyte and mild bilateral facet arthropathy. No central canal stenosis. There is mild foraminal encroachment bilaterally. L3-L4: Grade 1 retrolisthesis. Diffuse disc osteophyte and moderate bilateral facet arthropathy and ligamentum flavum thickening. Findings in concert result in worsening left subarticular zone stenosis with compression of the traversing left L4 nerve root and disc osteophyte results in mass effect on the extraforaminal L3 nerve roots bilaterally. L4-L5: Diffuse annular disc bulge and moderate bilateral facet arthropathy and ligamentum flavum thickening. Central canal remains patent. The previously seen far right lateral disc protrusion has resorbed without residual mass effect on the extraforaminal right L4 nerve root. Disc osteophyte and facet arthropathy result in worsening moderate bilateral foraminal stenosis at this level. L5-S1: Diffuse annular disc bulge and severe left facet arthropathy. No central canal stenosis. Mild foraminal encroachment bilaterally. IMPRESSION: * There is a mild acute edematous upper endplate compression fracture at L5 exhibiting 30% upper endplate height loss. * At L3-L4, grade 1 retrolisthesis and progressive spondylitic changes result in worsening left subarticular zone stenosis with compression of the traversing left L4 nerve root and disc osteophyte results in mass effect on the extraforaminal L3 nerve roots bilaterally, greater on the right. * At L4-L5, the previously seen far right lateral disc protrusion has resorbed without residual mass effect on the extraforaminal right L4 nerve root. Progressive spondylitic changes at L4-L5 result in worsening moderate bilateral foraminal stenosis. * Leftward convex lumbar scoliosis. Assessment & Plan Assessment & Plan (1) Chronic pain syndrome: Code(s): G89.4 - Chronic pain syndrome Category: Medical (2) Sacroiliitis: Code(s): M46.1 - Sacroiliitis, not elsewhere classified Category: Medical (3) Sacroiliac joint pain: Code(s): M53.3 - Sacrococcygeal disorders, not elsewhere classified Category: Medical (4) Spondylosis of lumbar spine: Code(s): M47.816 - Spondylosis without myelopathy or radiculopathy, lumbar region Category: Medical Plan The dressings were changed today in the office. The patient will follow up in one week for driss removal and wound check. The patient was educated by Jacquelyn Bernal on PCS device operation and activity restrictions. Patient is wearing her abdominal belt.?Avoid showers for now. All questions and concerns have been answered and patient agreed with the plan. Follow in 1 week for driss removal and sooner as needed. Coding Level of Care Code Est Pt Level 3 (58503) Diagnoses Chronic pain syndrome G89.4 Sacroiliitis M46.1 Sacroiliac joint pain M53.3 Spondylosis of lumbar spine M47.816
[2023-11-05 09:02] VITALS: BP 181/78; PULSE 87; O2SAT 96; BMI 33.3
== END 2023-11-05 09:29 | disposition home or self-care (01) ==
PROVIDERS: PCP Student in an Organized Health Care Education/Training Program; Visit Provider Nurse Practitioner Family
DX: G89.4 Chronic pain syndrome (principal); M46.1 Sacroiliitis, not elsewhere classified; M53.3 Sacrococcygeal disorders, not elsewhere classified; M47.816 Spondylosis without myelopathy or radiculopathy, lumbar region
CPT/HCPCS: 99024

== ENCOUNTER → 2023-11-05 08:55 | Outpatient (BNVA) | payer MEDICARE, MEDICAID, SELFPAY | PROVIDERS: PCP Student in an Organized Health Care Education/Training Program; Visit Provider Nurse Practitioner Family | DX: M46.1 Sacroiliitis, not elsewhere classified (principal); M53.3 Sacrococcygeal disorders, not elsewhere classified; M47.816 Spondylosis without myelopathy or radiculopathy, lumbar region; G89.4 Chronic pain syndrome | CPT/HCPCS: 99212 ==

== ENCOUNTER 2023-11-10 08:34 | Outpatient (AMB) | payer MEDICARE, MEDICAID, SELFPAY ==
[2023-11-10 08:42] VITALS: BP 146/68; RESP 14; BMI 33.3
--- NOTE | 2023-11-10 08:42 | MHC.OFFVIS ---
Vital Signs 11/10/23 08:42 Height 5 ft 3 in Weight 188 lb BMI 33.3 BP 146/68 H Blood Pressure Location Rt brachial Position Sitting Respiration 14 Intake Visit Reasons: [place] Removal Allergies Sulfa (Sulfonamide Antibiotics) Allergy (Severe, Verified 11/10/23 08:43) Rash tramadol Allergy (Severe, Verified 11/10/23 08:43) Itching Medication List - Last Reconciled 11/10/23 by Marina Keating LPN amitriptyline 10 - 20 mg (1 - 2 x 10 mg) PO BEDTIME 30 days cephalexin 1,000 mg (2 x 500 mg) PO Q8H 14 days citalopram 20 mg PO DAILY citalopram 40 mg PO DAILY fluticasone propionate 50 mcg/actuation 2 sprays intranasal DAILY gabapentin 300 mg PO BID 30 days hydroxyzine HCl 25 mg PO TID lidocaine 5% (Lidoderm) 1 patch topical DAILY losartan 25 mg PO DAILY magnesium glycinate 200 mg (2 x 100 mg) PO DAILY 30 days meloxicam 15 mg PO DAILY PRN methocarbamol 750 mg PO BEDTIME PRN morphine 15 mg PO Q8H PRN 3 days naloxone 4 mg/actuation (Narcan) 4 mg intranasal Q2M PRN naloxone 4 mg/actuation 4 mg intranasal Q2M PRN 1 day ondansetron 4 mg PO Q8H PRN 2 days pramipexole 0.75 mg PO BEDTIME pramipexole 0.125 - 0.375 mg (1 - 3 x 0.125 mg) PO QPM 30 days propranolol ER 60 mg PO BEDTIME 30 days riboflavin (vitamin B2) 400 mg PO DAILY sennosides (Senna Laxative) 8.6 mg PO DAILY PRN ubrogepant (Ubrelvy) 50 - 100 mg (0.5 - 1 x 100 mg) PO ONCE PRN 30 days HPI Comments Details: Tory presents back to the office today for follow up, 2 weeks status post implantation of chronic PNS system for bilateral SI joint dysfunction performed 10/29/[address] Pike In the office today for removal of driss. Reports 80% pain relief with improvement in functional mobility. Pain today is rated as a 2/10, average daily pain is 2/10. Prior to implant reports average daily pain was 8 or 9/10. Denies any untoward effects Prior visit with Ashley Huerta NP: Patient presents today status post Bilateral SI joint stimulation Implant with Curonix PNS system on 10/29/[address] Pike. Patient reports 50% pain relief since procedure with improvement in her mobility, functioning and sleep. She has been taking Morphine IR 15 mg prn mostly once a day at bedtime for post-operative pain control without any side effects. Pain is rated at 5/10. The tape was removed today. Her three wounds are clean, driss are intact, without pathological discharge, redness, swelling, tenderness on palpation and signs of inflammation or infection. The wounds were washed with ChloraPrep and sterile dressing with bacitracin ointment was applied with Tegaderm films. Patient is wearing abdominal belt. Jacquelyn Pride was also present today and educated patient on Curonix device care and activity restrictions. Denies any recent cough, cold, infection, fever, any significant changes in her medical history, medications or recent hospitalizations. Past Procedures: 10/29/23: Bilateral SI joint stimulation implant with Curonix PNS 10/01/23: Bilateral SI joint stimulation trial with Curonix PNS->80% pain relief 08/20/23: L5 Kyphoplasty->50% pain relief 08/03/23: Bilateral Diagnostic L3-L4 DR L5 MBB-0% pain relief 10/27/22: Bilateral Diagnostic SIJ injections-80% pain relief for 1.5 days 09/29/22: Ganglion Impar Block-50% pain relief PRIOR Dr. Pike: Arianna is back in my office after kyphoplasty L5 which was performed on him on 08/20/2023. She reports significant pain decreased she reports pain 5/10 today. She reports that her pain is getting better every day. She still experiences significant pain mostly related to her bilateral sacroiliac joints. Sacroiliac joint injection bilateral resulted in 80-90% pain improvement after the procedure. Mobility limitations were reinforced today. she is scheduled for psychological evaluation with [facility] to treat her pain with stimulation. After she will be evaluated will proceed with bilateral SI joint stimulation with Curonix. We also can try retrograde [place] [employer] in the caudal canal PNS, we can also try Nevro SCS. Suture removals in 5 days. PRIOR: Bilateral Diagnostic L3-L4 DR L5 MBB on 08/03/23 Patient reports 0% pain relief since procedure. She continues to endorse lower back pain, worse on the right side into the right buttocks. Patient avoids sitting or sleeping on the right side due to pain. Denies radicular symptoms into her lower extremities. She is sitting leaning towards the left side. Patient reports visiting [facility] on 08/04/23 for constipation, diarrhea and back pain and had no pain relief with Ketorolac 15 mg IM at ER. She continues to report constipation and diarrhea episode with difficulty moving her bowels. Patient declined GI services referral today and has been treating her symptoms with sennosides as needed. Patient has requested oxycodone for pain. I have informed patient given constipation, she should avoid opioids at this time and increase fiber and fluid intake. Denies any fever, chills, malaise, weight loss, abdominal or groin pain, bladder or bowel incontinence or saddle anesthesia. Patient has pending lumbar spine MRI on 08/13/23 to evaluate L5 compression fracture for potential kyphoplasty. Past Procedures: 08/03/23: Bilateral Diagnostic L3-L4 DR L5 MBB 10/27/22: Bilateral Diagnostic SIJ injections-80% pain relief for 1.5 days 09/29/22: Ganglion Impar Block-50% pain relief PRIOR: Patient is a pleasant 57 years old female with a history of lumbar DDD, chronic coccydynia and bilateral sacroiliitis, presents today for initial evaluation of lower back pain and coccyx pain. She attributes her pain generators to traumatic slip and fall injury about 5 years ago. Denies any recent trauma, injury or falls. She has had pain in her tailbone radiating towards her lower back and occasionally into her left leg since fall injury. Pain is constant and described as dull, sore, hurting, aching, heavy, spreading, radiating, piercing and occasionally throbbing. Pain increased with sitting, changing positions, or applying pressure directly to her tailbone. Pain affects her daily activities, she cannot sleep supine due to bilateral rotator cuff pain and has been sleeping in a recliner. Pain has been managed with methocarbamol and occasionally OTC medications with continued symptoms. She uses Donut pillow for pressure relief. Denies any previous injections or spine surgery. She reports completing pelvic physi[place] with manipulation of her sacroiliac joints with minimal improvements. Denies fever, weight loss, abdominal or groin pain, vaginal bleeding, prolapse or discharge, bladder or bowel incontinence or saddle anesthesia. Patient is a daily smoker and currently not motivated to quit as she recently lost her dog. [facility] Medical History HTN (hypertension) JORDAN (obstructive sleep apnea) EUGENIA (iron deficiency anemia) Lumbar spondylosis Vitamin D deficiency Restless leg syndrome Depression Plantar fasciitis Osteopenia Migraine Hyperlipidemia DDD (degenerative disc disease), lumbosacral Complete tear of left rotator cuff Carpal tunnel syndrome Surgical History Previous back surgery H/O shoulder surgery Social History Alcohol intake: never Patient Tobacco Use Status: Current everyday Tobacco user Tobacco use type: Cigarette Cigarette Packs Per Day: 0.5 Cigarettes Per Day: 10 Years Smoked: 25 Review of Systems Const All systems reviewed & are unremarkable except as noted in HPI and below Physical Exam Vital Signs: Last Vital Signs Resp 14 11/10/23 08:42 BP 146/68 H 11/10/23 08:42 BMI result Body Mass Index 33.3 General: awake, alert, oriented. Answers questions appropriately. Fully engaged in examination. Skin: warm, dry, intact HEENT: Normocephalic. Hearing intact. Cardiac: External chest normal in appearance. Respiratory: No cough, audible wheezing or stridor. Abdomen: without gross distension. MS: No obvious swelling or deformities. Able to transition from sit to stand unassisted. Ambulates with bilaterally normal heel strike and toe off Neurological: Oriented to person, place, time and situation. Thought process intact. No gait abnormalities appreciated. Psychiatric: Appropriate mood and affect. Good judgment and insight. Staple removal: Dressing was removed. The three incisional wounds were examined, area cleansed with ChloraPrep. Incisions are healing without complications. The wounds are clean, no pathological discharge, no redness, no swelling, no local temperature. All driss were removed. The area again cleansed with ChloraPrep, bacitracin ointment with dry sterile dressings were applied. Patient tolerated the procedure well. Assessment & Plan Assessment & Plan (1) Chronic pain syndrome: Code(s): G89.4 - Chronic pain syndrome Category: Medical (2) Sacroiliitis: Code(s): M46.1 - Sacroiliitis, not elsewhere classified Category: Medical (3) Sacroiliac joint pain: Code(s): M53.3 - Sacrococcygeal disorders, not elsewhere classified Category: Medical (4) Spondylosis of lumbar spine: Code(s): M47.816 - Spondylosis without myelopathy or radiculopathy, lumbar region Category: Medical Plan Driss removed, wounds appear to be healing well. No signs of local or systemic infection. Dressings applied. May shower after 24 hours. Patient has been in contact with [employer] representatives. Managing the device well. All questions and concerns were answered, patient agrees with plan. Follow up in the office as planned, sooner if needed Coding Level of Care Code Est Pt Level 3 (51557) Diagnoses Chronic pain syndrome G89.4 Sacroiliitis M46.1 Sacroiliac joint pain M53.3 Spondylosis of lumbar spine M47.816
== END 2023-11-10 08:58 | disposition home or self-care (01) ==
PROVIDERS: PCP Student in an Organized Health Care Education/Training Program; Visit Provider Registered Nurse Emergency
DX: G89.4 Chronic pain syndrome (principal); M46.1 Sacroiliitis, not elsewhere classified; M53.3 Sacrococcygeal disorders, not elsewhere classified; M47.816 Spondylosis without myelopathy or radiculopathy, lumbar region
CPT/HCPCS: 99213

== ENCOUNTER → 2023-11-10 08:34 | Outpatient (BNVA) | payer MEDICARE, MEDICAID, SELFPAY | PROVIDERS: PCP Student in an Organized Health Care Education/Training Program; Visit Provider Registered Nurse Emergency | DX: G89.4 Chronic pain syndrome (principal); M46.1 Sacroiliitis, not elsewhere classified; M53.3 Sacrococcygeal disorders, not elsewhere classified; M47.816 Spondylosis without myelopathy or radiculopathy, lumbar region; Z48.02 Encounter for removal of sutures | CPT/HCPCS: 99212 ==

== ENCOUNTER → 2023-11-16 08:51 | Outpatient (BNVA) | payer MEDICARE, MEDICAID, SELFPAY | PROVIDERS: PCP Student in an Organized Health Care Education/Training Program; Visit Provider Clinical Nurse Specialist Psychiatric/Mental Health ==

== ENCOUNTER 2024-11-07 09:14 | Outpatient (AMB) | payer OTHER, MEDICAID, MEDICARE, SELFPAY ==
[2024-11-07 09:40] VITALS: BP 110/78; PULSE 76; O2SAT 96; BMI 31.2
--- NOTE | 2024-11-07 09:40 | MHC.OFFVIS ---
Vital Signs 11/07/24 09:40 Height 5 ft 3 in Weight 176 lb BMI 31.2 BP 110/78 Blood Pressure Location Rt brachial Position Sitting Pulse 76 Pulse Source Pulse Oximeter Pulse Oximetry (%) 96 Oxygen Delivery Method Room Air Intake Visit Reasons: 6 month F/U Intake Note: Patient presents 6 month follow up for migraines/RLS. 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 Pt endorses the following interval medical history changes: Pt recently had a right forearm tic bite. She saw urgent care, was given a dose of doxy x's 1 day. The rash resolved but came back- not as an erythema migrans rash, more like a mosquito bite reaction. She also did have a RLE calf 2 rashes a/w bite, that enlarged and blended into 1 rash- now resolved. Denies arthralgias, fevers, chills. She had f/u lab testing Lyme IGG elevated, but IGM was WNL. She previously did not tolerate her CPAP. She saw Dr Randhawa, who did not feel she was a candidate for surgical intervention or [facility]. Pt continues on Pramipexole 0.75mg for RLS- falls asleep, but then wakes up. States she uses a weighted blanket on her legs, but then wakes up with a kicked off. Continues on her proximal takes a twice a day gabapentin 300 mg Patient reports her migraines are better and she notes that the headaches are not as severe as before. The migraines occur intermittently and are manageable with current medication. Usually Amitriptyline at bedtime at times. Continues on Propranolol. Ubrelvy is more helpful. At times takes the Excedrin at night. Baseline headache characteristics: Mod-Severe. Wakes up in the morning when she opens her eyes with holocranial, pounding, throbbing, pressure headache a/w Photophobia, phonophobia, osmophobia, nausea, tiredness. [facility] Medical History HTN (hypertension) JORDAN (obstructive sleep apnea) EUGENIA (iron deficiency anemia) Lumbar spondylosis Vitamin D deficiency Restless leg syndrome Depression Plantar fasciitis Osteopenia Migraine Hyperlipidemia DDD (degenerative disc disease), lumbosacral Complete tear of left rotator cuff Carpal tunnel syndrome Surgical History Previous back surgery H/O shoulder surgery Social History Alcohol intake: never Patient Tobacco Use Status: Current everyday Tobacco user Tobacco use type: Cigarette Cigarette Packs Per Day: 0.5 Cigarettes Per Day: 10 Years Smoked: 25 Physical Exam Vital Signs: Last Vital Signs Pulse 76 11/07/24 09:40 BP 110/78 11/07/24 09:40 Pulse Ox 96 11/07/24 09:40 Oxygen Delivery Method Room Air 11/07/24 09:40 BMI result Body Mass Index 31.2 Const General: cooperative and no acute distress Orientation/consciousness: patient oriented x3 Resp Effort & Inspection: normal respiratory effort and able to speak in complete sentences Neuro General: patient oriented x3 Cranial nerves: Yes CN's II-XII intact bilaterally Cognition (Neuro): normal cognition Psych Appearance: grossly normal Mental Status: mental status grossly normal Speech and movement: Normal speech and movement present Affect: normal affect Attitude: cooperative Assessment & Plan Assessment & Plan (1) Migraine with aura: Code(s): G43.109 - Migraine with aura, not intractable, without status migrainosus Category: Medical Qualifiers: Status migrainosus presence: without status migrainosus Intractability: intractable Qualified Code(s): G43.119 - Migraine with aura, intractable, without status migrainosus (2) Restless leg syndrome: Code(s): G25.81 - Restless legs syndrome Category: Medical (3) JORDAN (obstructive sleep apnea): Comment: mild JORDAN w/ AHI 9.5/hr, O2 joseph 85%, average SpO2 92%. Code(s): G47.33 - Obstructive sleep apnea (adult) (pediatric) Category: Medical (4) Tick bite: Code(s): W57.XXXA - Bitten or stung by nonvenomous insect and other nonvenomous arthropods, initial encounter Category: Medical Plan For mild obstructive sleep apnea: Patient was unable to tolerate CPAP therapy. We will continue to monitor ? For tremor, RLS, muscle spasm s/s: Continue Pramipexole 01.125mg- 1-3 tabs q evening, prior to 6pm. Continue Pramipexole 0.75mg qhs. Check labs for underlying etiologies Information shared on patient education resource ?navigating life with restless leg syndrome? by Dr. Mitch Wood. Trial a cooling style weighted blanket ? For overall headache management: Continue to optimize good self-care, including but not limited to maintaining a healthy diet, adequate fluid intake, adequate sleep, and engaging in regular physical activity. Track headaches. ? For acute headache treatment: Continue Ubrogepant (Ubrelvy) 100mg tab, 1/2 - 1 tab (50-100mg) at onset of headache, may repeat in 2 hours. Max of 2 tabs (200mg) per 24 hours. May adjunct with OTC Tylenol 650mg q 4 hours, Ibuprofen 600mg q 6 hours, or Naproxen 440mg q 12 hrs prn. . Try to decrease Excedrin use- avoid using Excedrin in evening/night. Previous acute migraine medication trials: Excedrin. Acute migraine medication contraindications: Triptans d/t labile HTN. ? For headache prevention medication: Continue Riboflavin 400mg qam Continue Magnesium 400mg qhs Continue Amitriptyline 10-20mg qhs- uses prn- would not increase d/t risk for worsening RLS s/s. Continue Propranolol ER 60mg qhs- in hopes this helps HTN, sleep, and am headache. Previous migraine prevention medication trials: No other Migraine prevention medication contraindications: None at this time Future considerations: CGRP MaB. ? ? Pt to follow-up in 6 months or sooner prn. Orders: Orders Complete Blood Count Auto Diff Today D64.9 - Anemia, unspecified, E55.9 - Vitamin D deficiency, unspecified, E66.9 - Obesity, unspecified, R53.83 - Other fatigue, W57.XXXA - Bitten or stung by nonvenomous insect and other nonvenomous arthropods, initial encounter Vitamin B12 and Folate Today D64.9 - Anemia, unspecified, E55.9 - Vitamin D deficiency, unspecified, E66.9 - Obesity, unspecified, R53.83 - Other fatigue, W57.XXXA - Bitten or stung by nonvenomous insect and other nonvenomous arthropods, initial encounter TSH reflex Free T4 Today D64.9 - Anemia, unspecified, E55.9 - Vitamin D deficiency, unspecified, E66.9 - Obesity, unspecified, R53.83 - Other fatigue, W57.XXXA - Bitten or stung by nonvenomous insect and other nonvenomous arthropods, initial encounter C Reactive Protein Today D64.9 - Anemia, unspecified, E55.9 - Vitamin D deficiency, unspecified, E66.9 - Obesity, unspecified, R53.83 - Other fatigue, W57.XXXA - Bitten or stung by nonvenomous insect and other nonvenomous arthropods, initial encounter Ferritin Today D64.9 - Anemia, unspecified, E55.9 - Vitamin D deficiency, unspecified, E66.9 - Obesity, unspecified, R53.83 - Other fatigue, W57.XXXA - Bitten or stung by nonvenomous insect and other nonvenomous arthropods, initial encounter IRON PROFILE Today D64.9 - Anemia, unspecified, E55.9 - Vitamin D deficiency, unspecified, E66.9 - Obesity, unspecified, R53.83 - Other fatigue, W57.XXXA - Bitten or stung by nonvenomous insect and other nonvenomous arthropods, initial encounter Comprehensive Met. Panel Today D64.9 - Anemia, unspecified, E55.9 - Vitamin D deficiency, unspecified, E66.9 - Obesity, unspecified, R53.83 - Other fatigue, W57.XXXA - Bitten or stung by nonvenomous insect and other nonvenomous arthropods, initial encounter Vitamin D 25-OH (D2 and D3) Today D64.9 - Anemia, unspecified, E55.9 - Vitamin D deficiency, unspecified, E66.9 - Obesity, unspecified, R53.83 - Other fatigue, W57.XXXA - Bitten or stung by nonvenomous insect and other nonvenomous arthropods, initial encounter Erythrocyte Sedimentation Rate Today D64.9 - Anemia, unspecified, E55.9 - Vitamin D deficiency, unspecified, E66.9 - Obesity, unspecified, R53.83 - Other fatigue, W57.XXXA - Bitten or stung by nonvenomous insect and other nonvenomous arthropods, initial encounter Coding Level of Care Code Est Pt Level 4 (91154) Diagnoses Intractable migraine with aura without status migrainosus G43.119 Status migrainosus presence: without status migrainosus Intractability: intractable Restless leg syndrome G25.81 JORDAN (obstructive sleep apnea) G47.33 Tick bite W57.XXXA
--- OUTSIDE RECORDS SUMMARY | 2024-11-07 09:48 | XMS_ITS | Encounter Summary ---
Author Organization [facility] Address [address] [place] [address] Care Team Providers Care Field Agent Name Role Phone Juanis Storey Primary Care Provider [phone] Pcp, No Primary Care Provider Unavailabl e Encounter Details Date Type Department Care Team (Late st Contact Info) Description 10/12/2019 Scanned Document [facility] [address] [place] [phone] Suha Bazzi PA-C [address] [facility] [place] [address] Social History Tobacco Use Types Packs/Day Years Used Date Smoking Tobacco: Never Assessed Comments Unknown Sex and Gender Information Value Date Recorded Sex Assigned at Not on file Legal Sex Female 9:53 AM EDT Gender Identity Not on file Sexual Orientation Not on file COVID-19 Exposure Response Date Recorded In the last month, have you been in contact with someone who was confirmed or suspected to have Coronavirus / COVID-19? No / Unsure 10/09/2019 3:22 PM EDT documented as of this encounter Plan of Treatment Not on file documented as of this encounter Visit Diagnoses Not on filedocumented in this encounter Care Teams Field Agent Relationship Specialty Start Date End Date Juanis Storey PA PCP - General 10/05/19 12/10/19 Pcp, No PCP - General General Medicine 12/11/19 documented as of this encounter
--- OUTSIDE RECORDS SUMMARY | 2024-11-07 09:48 | XMS_ITS | Clinical Summary ---
[facility] Organization [facility] Address [address] [place] [id number] Care Team Providers Care Machine Fastener Name Role Phone Juanis Storey Primary Care Provider Allergies Active Allergy Reactions Criticality Noted Date Comments Sulfa (Sulfonamide Antibiotics) 06/11 Tramadol Itching 03/24/2018 Medications nortriptyline (PAMELOR) 10 mg capsule TAKE 1-2 CAPSULES BY MOUTH AT BEDTIME FOR SLEEP AND HEADACHES 5 9 Active lisinopril (PRINIVIL,ZESTR IL) 2.5 mg tablet TAKE 1 TABLET BY MOUTH DAILY. FOR BLOOD PRESSURE AND KIDNEY PROTECTION 9 Active DULoxetine (CYMBALTA) 60 mg capsule Take by mouth. 5 9 Active pramipexole (MIRAPEX) 0.75 mg tablet Take 0.75 mg by mouth 3 (three) times a day. Active Family History Medical History Relation Comments COPD Father Hyperlipidemia Father Diabetes Mother Hypertension Mother Seizures Mother Relation Status Comments Father Alive Mother Alive Social History Tobacco Use Types Packs/Day Years Used Date Smoking Tobacco: Former Smokeless Tobacco: Never Alcohol Use Standard Drinks/Week Comments No 0 (1 standard drink = 0.6 oz pur e alcohol) Comments Unknown Sex and Gender Information Value Date Recorded Sex Assigned at Not on file Legal Sex Female 3:01 PM EDT Gender Identity Not on file Sexual Orientation Not on file Last Filed Vital Signs Vital Sign Reading Time Taken Comments Blood Pressure 113/80 02/20/2019 9:56 AM EDT Pulse 85 02/20/2019 9:56 AM EDT Temperature - - Respiratory Rate - - Oxygen Saturation - - Inhaled Oxygen Concentration - - Weight 81.6 kg (180 lb) 02/20/2019 9:56 AM EDT Height 160 cm (5' 3 ) 02/20/2019 9:56 AM EDT Body Mass Index 31.89 02/20/2019 9:56 AM EDT Plan of Treatment Health Maintenance Due Date Last Done Comments Breast Cancer Screening 1966 CT Colonography 1966 Colonoscopy 1966 Colorectal Cancer Screening 1966 FIT-DNA (Cologuard) 1966 FIT 1966 FOBT 1966 Flex Sigmoidoscopy - 5y 1966 HIV Screening 1966 Hepatitis B Vaccines (1 of 3 - 19+ 3-dose series) 1985 Pap Smear 1987 Cervical Cancer Screening 1996 HPV/Cotest 1996 Pneumococcal Vaccine, 50+ Years (1 of 1 - PCV) 2016 Zoster Vaccines (1 of 2) 2016 COVID-19 Vaccine (1 - 2023-2 5 season) 2024 Influenza Vaccine (Season Ended) 2025 DTaP,Tdap,and Td Vaccines (3 - Td or Tdap) 06/09/2029 06/09/2019, 03/18/2018 HPV Vaccines Aged Out No longer eligi ble based on patient's age to complete this topic Hepatitis A Vaccines Aged Out No long er eligible based on patient's age to complete this topic MMR Vaccines Aged Out No longer eligi ble based on patient's age to complete this topic Meningococcal Vaccine Aged Out No yomi skyla eligible based on patient's age to complete this topic Insurance [employer] Care Teams Machine Fastener Relationship Specialty Start Date End Date Juanis Storey PA PCP - General Internal Medicine 02/13/19
--- OUTSIDE RECORDS SUMMARY | 2024-11-07 09:48 | XMS_ITS | Data Portability ---
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 Today we discussed the 3 tiered system for managing mild JORDAN. The first is medical management, the second is devices and the third is procedures. Medical management may include weight loss with diet and exercise, goal of 10% reduction. Additionally topical nasal steroids such as Flonase which is currently [id number] may be helpful. Devices such as a mandible advancement device which may be obtained over the counter or through your dental professional can also be helpful to reposition the jaw and tongue. And finally procedures to change the shape and vibration of the soft palate could be attempted if she had moderate or severe JORDAN. Success of devices and procedures is approximately 70%. Consideration of obtaining a formal in lab sleep study is also discussed as it is possible her symptoms are out of proportion for her diagnosis of mild JORDAN. If her mandible advancement devices are not helpful she will reach out to her sleep center to request in lab study [email or web address] Not available 05/08/2024 11:58:43 Plan of Treatment Reminders Order Date Submit Date Provider Last Modified By Organization Details Last Modified Time Details Appointments None record ed. Lab None record ed. Referral None record ed. Procedures None record ed. Surgeries None record ed. Imaging None record ed. Medication Orders None record ed. Patient TargetsNo targets recorded. Patient InstructionsNo instructions recorded. Reason for Referral None Reported. Results Created Date Observation Date Name Description Value Unit Range Abnormal Flag Note LastModifiedBy Organization Detail LastModifiedTime 05/08/20 24 04/07/2023 sleep study , diagn ostic (PROC ) No observ ation record ed. [facility] (Medical Records) [address] [place], [address], 05/08/2024 11:44:38 05/08/20 24 03/26/2023 polys omnog perla No observ ation record ed. [facility] Not Available 2023 11:30:23 Result Notes None recorded. Problems Name Problem SNOMED Code Status Onset Date Resolution Date Notes Provider Name and Address Organization Details Recorded Time Obstructive sleep apnea syndrome 26509682 Active 2023 JUVE TORRES MD [address] [place] [address], [place], [phone], [facility] 11:56:28 Tobacco dependence caused by cigarettes [id number] 9107 Active 2023 JUVE TORRES MD [address] [place] [address], [place], [phone], [facility] 11:56:32 Problem Notes None recorded. Procedures Surgical History Date Name Laterality Status Provider Name and Address Organization Details Recorded Time 05/08/2024 FOL_DP completed JUVE TORRES MD [address] [place] [address], [phone], [facility] 05/04/2024 13:04:57 Imaging Results None recorded. Procedure Notes None recorded. Medical Equipment None Reported. Allergies Allergen ID Allergen Name Allergen Category Reaction Reaction Severity Criticality Documentation Date Start Date Code Code System Note Provider Name and Address Organization Details Recorded Time 153587 tramadol medicatio n itching Not available Not available 05/08/2024 45733 RxNorm Melly mejia [facility] 11:42:46 Medications Name Sig Start Date Stop Date Status Note LastModified by Organization Details LastModified Time citalopram 40 mg tablet TAKE 1 TABLET BY MOUTH EVERY DAY active Not Available Not Available No t Available benzonatate 200 mg capsule TAKE 1 CAPSULE (ORAL) 3 TIMES PER DAY (COUGH) FOR 10 DAYS active Not Available Not Available Not Available propranolol ER 60 mg capsule,24 hr,extended release TAKE 1 CAPSULE BY MOUTH AT BEDTIME active Not Available Not Available No t Available hydrocodone 10 mg-acetamino phen 325 mg tablet PLEASE SEE ATTACHED FOR DETAILED DIRECTIONS active Not Available Not Available N ot Available amoxicillin 875 mg tablet TAKE 1 TABLET BY MOUTH TWICE A DAY FOR 7 DAYS active Not Available Not Available No t Available citalopram 20 mg tablet TAKE 1 TABLET BY MOUTH EVERY DAY active Not Available Not Available No t Available methocarbamo l 750 mg tablet TAKE 1 TABLET BY MOUTH AT BEDTIME NEEDED FOR MUSCLE SPASMS. active Not Available Not Available No t Available amitriptylin e 10 mg tablet TAKE 1 TO 2 TABLETS AT BEDTIME FOR PAIN active Not Available Not Available No t Available cephalexin 500 mg capsule TAKE 2 CAPSULES BY MOUTH EVERY 8 HOURS FOR 14 DAYS. TAKE 25 BILLION CULTURE PROBIOTIC BETWEEN DOSES. active Not Available Not Available No t Available lidocaine 5 % topical patch APPLY ONCE PATCH TOPICALLY EVERY DAY FOR PAIN active Not Available Not Available No t Available losartan 25 mg tablet TAKE 1 TABLET BY MOUTH EVERY DAY active Not Available Not Available No t Available pramipexole 0.125 mg tablet TAKE 1 TABLET BY MOUTH 3 TIMES A DAY. active Not Available Not Available No t Available gabapentin 300 mg capsule TAKE 1 CAPSULE BY MOUTH TWICE A DAY FOR PAIN active Not Available Not Available No t Available Senna Laxative 8.6 mg tablet TAKE 1 TABLET BY MOUTH DAILY NEEDED FOR OTHER. active Not Available Not Available N ot Available hydroxyzine HCl 25 mg tablet TAKE 1 TABLET BY MOUTH THREE TIMES A DAY NEEDED FOR ANXIETY active Not Available Not Available Not Available ergocalcifer ol (vitamin D2) 1,250 mcg (50,000 unit) capsule TAKE 1 CAPSULE BY MOUTH ONE TIME PER WEEK active Not Available Not Available No t Available morphine 15 mg immediate release tablet 15 MG ORALLY EVERY 8 HOURS NEEDED FOR PAIN FOR 3 DAYS PARTIAL FILL UPON PATIENT REQUEST. active Not Available Not Available No t Available fluticasone propionate 50 mcg/actuatio n nasal spray,suspen zurdo SPRAY 2 SPRAYS INTRANASALL Y DAILY FOR 10 DAYS active Not Available Not Available No t Available loratadine 10 mg tablet TAKE 1 TABLET BY MOUTH EVERY DAY active Not Available Not Available No t Available oxycodone 5 mg tablet TAKE 1 TABLET ORALLY EVERY 6 HOURS NEEDED FOR PAIN (SCALE SCORE 7-10) FOR 10 DAYS active Not Available Not Available Not Available pramipexole 0.75 mg tablet TAKE 1 TABLET (0.75 MG TOTAL) BY MOUTH AT BEDTIME. active Not Available Not Available No t Available naloxone 4 mg/actuation nasal spray PLEASE SEE ATTACHED FOR DETAILED DIRECTIONS active Not Available Not Available N ot Available riboflavin (vitamin B2) 400 mg tablet TAKE 1 TABLET BY MOUTH EVERY DAY FOR MIGRAINE active Not Available Not Available No t Available Ubrelvy 100 mg tablet TAKE HALF OR ONE TABLET BY MOUTH ONCE NEEDED FOR HEADACHE. MAY REPEAT IN 2HOURS IF NEEDED active Not Available Not Available No t Available Vitals Date Recorded Body height Body mass index (BMI) Body weight Provider Name and Address Organization Details Last Updated DateTime 05/08/2024 160.02 cm 32.8 kg/m2 37686.59 g Melly Trent [place] - [facility] 05/08/2024 11:43:56 Social History None recorded. Functional Status None recorded. Mental Status None recorded. Family History Nothing Reported. Medical History Condition Response Migraines Y Anxiety Y Hypertension Y Depression Y Gynecological HistoryNo gynecological history recorded. Obstetrics History GPAL:G 0 P 0 0 0 0 Past Encounters Encounter ID Performer Location Encounter Start Date Encounter Closed Date Diagnosis/Indication Diagnosis SNOMED-CT Code Diagnosis ICD10 Code Diagnosis Note [id number] JUVE TORRES MD [facility] [address] [phone] 05/08/2024 11:21:37 05/08/2024 11:58:20 Obstructive sleep apnea syndrome 73454291 G47.33 Tobacco de pendence caused by cigarettes 9478959082 6775893 F17.210 Health Concerns Section Related Observation LastModified by Organization Detai ls LastModified Time None Recorded Concern Status LastModified by Organization Details LastModified Time None Recorded Advance Directives Directive None Recorded Payers Insurance Date Sequence Insurance Name Policy Number Policy Toussaint Covered Member ID Toussaint Member ID Guarantor Name 05/08/2024 1 [employer] [id number] Tory Campbell [id number] Tory Campbell 05/08/2024 1 [employer] (MEDICARE REPLACEMENT/A DVANTAGE - PPO) [id number] Tory Campbell [id number] Tory Campbell 05/08/2024 2 [place] [facility] Tory Campbell [id number] Tory Adrian Notes Date Note Type Note Provider Name and Address Organization Details Recorded Time 05/08/2024 text/html OSAtired during day, headache in AMdepressionweight stableno prior throat surgeryno prev trial of oral appliance 03/26/2023 Home PSG at [place], Dr. Aceves 32.4REI 9.5Central and mixed none recordedCPAP trial - intolerant after 4 different masks, usually removes during the night work - on disability from back injurytobacco 1/2ppd JUVE TORRES MD [address] [place] [address], [place], [address], [place] [facility] 05/08/2024 11:59:07 OBGyn Episode No OBEpisode recorded.
--- OUTSIDE RECORDS SUMMARY | 2024-11-07 09:48 | XMS_ITS | Clinical Summary ---
Author Organization [facility] it Address [address] [place] [address] Care Team Providers Care Power Press Operator Name Role Phone Juanis Storey Primary Care Provider [phone] Allergies Active Allergy Reactions Criticality Noted Date Comments Sulfa (Sulfonamide Antibiotics) Itching 06/2019 Tramadol Itching 03/24/2018 Medications pramipexole (MIRAPEX) 0.125 mg tablet Take 1 tablet (0.125 mg total) by mouth 3 (three) times a day. 90 each 4 03/30/20 25 Active pramipexole (MIRAPEX) 0.75 mg tablet Take 1 tablet (0.75 mg total) by mouth at bedtime. 90 tablet 1 4 Active losartan (COZAAR) 25 mg tablet TAKE 1 TABLET BY MOUTH EVERY DAY 90 tablet 1 4 Active losartan (COZAAR) 25 mg tablet Take 1 tablet (25 mg total) by mouth 1 (one) time each day. Active pramipexole (MIRAPEX) 0.125 mg tablet daily. 4 Active citalopram (CeleXA) 40 mg tablet Take 1 Tablet by mouth daily for 30 days. 4 Active magnesium oxide 420 mg tablet Take 1 tablet by mouth at bedtime. 4 Active methocarbamoL (ROBAXIN) 750 mg tablet TAKE 1 TABLET BY MOUTH AT BEDTIME NEEDED FOR MUSCLE SPASMS. 4 Active propranolol LA (INDERAL LA) 60 mg 24 hr capsule TAKE 1 CAPSULE BY MOUTH AT BEDTIME 4 Active hydrOXYzine HCL (ATARAX) 25 mg tablet Take 1 Tablet by mouth 3 times daily as needed for Anxiety. 4 Active amitriptyline (ELAVIL) 10 mg tablet 3 Active gabapentin (NEURONTIN) 300 mg capsule as needed. 3 Active Ubrelvy 100 mg tablet TAKE HALF OR ONE TABLET BY MOUTH ONCE NEEDED FOR HEADACHE. MAY REPEAT IN 2HOURS IF NEEDED 4 Active senna (SENOKOT) 8.6 mg tablet Take 1 Tablet by mouth daily as needed for Other. 3 Active albuterol HFA (ProAir HFA) 90 mcg/actuation inhaler Inhale 2 Puffs into the lungs every 4 hours as needed for Cough, Wheezing or Shortness of Breath. 3 Active meloxicam (MOBIC) 15 mg tablet 3 Active lidocaine (LIDODERM) 5 % patch 3 Active fluticasone propionate (FLONASE) 50 mcg/actuation nasal spray SPRAY 2 SPRAYS INTRANASALLY DAILY FOR 10 DAYS 3 Active cetirizine (ZyrTEC) 10 mg tablet Take 1 tablet (10 mg total) by mouth 1 (one) time each day. Active Active Problems Problem Noted Date Diagnosed Date Sleep apnea 07/06/2023 Anxiety 06/04/2023 Hypertension 04/29/2023 Adhesive capsulitis of right shoulder 05/15/2020 Degenerative disc disease, cervical 05/15/2020 Subacromial bursitis of right shoulder joint 10/2020 Tendinitis of right rotator cuff 05/15/2020 Cervical radiculitis 02/28/2020 Carpal tunnel syndrome 06/22/2019 Overview (04/20/2024): Right Complete tear of left rotator cuff 06/22/2019 DDD (degenerative disc disease), lumbosacral Osteopenia 06/22/2019 Overview (04/20/2024): Of lumbar spine, normal BMD hip 08/16/2017. Vitamin D deficiency 06/22/2019 Hyperlipidemia 06/09/2019 Overview (04/20/2024): ASCVD risk 2.2% Plantar fasciitis 06/09/2019 Migraines 05/12/2019 Obesity (BMI 30-39.9) 05/12/2019 Restless legs 05/12/2019 Recurrent major depression i n partial remission ([facility] V24) 05/11/2019 Immunizations Name Administration Dates Next Due Influenza Quadravalent, MDCK , 0.5ml, preservative free (Flucelvax) 6mo and older 02/23/2023,02/27/2022 Influenza trivalent, with preservative (Fluzone; Afluria) 6mo and older 03/23/2020 Influenza, Unspecified 09/18/2021 Vivacta SARS-CoV-2 COVID-19, mRNA, LNP-S, preservative free 03/18/2022,09/29/2021,07/19/2021,2020 Td Tetanus diptheria (Tdvax) 7yo and older 06/09/2019 Tdap Tetanus diptheria acell ular pertussis (Boostrix; Adacel) 7yo and older 07/28/2021,03/18/2018 Zoster recombinant (Shingrix ) 19yo and older 09/29/2021,07/30/2021 Surgical History Surgery Date Site/Laterality Comments OTHER SURGICAL HISTORY Bilateral PROCEDURE: ---- OTHER ----; COMMENT: plantar fascia release OTHER SURGICAL HISTORY Left PROCEDURE: ---- OTHER ----; COMMENT: left shoulder rotator cuff repair x 2, right shoulder x1 COLONOSCOPY 05/29/2022 PROCEDURE: HISTORICAL COLONOSCOPY; COMMENT: polyps OTHER SURGICAL HISTORY 11/2023 PROCEDURE: HISTORY OTHER; COMMENT: spinal cord stimulator Medical History Medical History Date Comments Plantar fasciitis 06/09/2019 DX:Plantar fas ciitis DDD (degenerative disc disea se), lumbosacral 06/22/2019 DX:DDD (degenerative disc di sease), lumbosacral Recurrent major depression i n partial remission ([facility] V24) 05/11/2019 DX:Recurrent major depressio n in partial remission ([facility]) Osteopenia 06/22/2019 DX:Osteopenia; C OMMENT: Of lumbar spine, normal BMD hip 08/16/2017. Complete tear of left rotator cuff 06/22/2019 DX:Complete tear of left rotator cuff Carpal tunnel syndrome 06/22/2019 DX:Carpal tunnel syndrome; COMMENT: Right Vitamin D deficiency 06/22/2019 DX:Vitamin D deficiency Former smoker 05/12/2019 DX:Former smoker Hyperlipidemia 06/09/2019 DX:Hyperlipidemi a; COMMENT: ASCVD risk 2.2% Migraines 05/12/2019 DX:Migraines Obesity (BMI 30-39.9) 05/12/2019 DX:Obesity (BMI 30-39.9) Restless legs 05/12/2019 DX:Restless legs Family History Medical History Relation Name Comments No Known Problems Daughter 1 No Known Problems Daughter 2 COPD Father Depression Father Heart attack Father Seizures Father Stroke Father Depression Mother Diabetes Mother Hypertension Mother Seizures Mother Asthma Paternal Grandmother No Known Problems Sister 1 No Known Problems Sister 2 No Known Problems Son Breast cancer Neg Hx Relation Name Status Comments Daughter 1 Alive Daughter 2 Alive Father Alive Maternal Grandfather Maternal Grandmother Mother Alive Paternal Grandfather Paternal Grandmother Sister 1 Alive Sister 2 Alive Son Alive Social History Tobacco Use Types Packs/Day Years Used Date Smoking Tobacco: Every Day Smokeless Tobacco: Never Alcohol Use Standard Drinks/Week Comments Yes 0 (1 standard drink = 0.6 oz pur e alcohol) Comments Unknown Sex and Gender Information Value Date Recorded Sex Assigned at Not on file Legal Sex Female 1:35 AM EST Gender Identity Not on file Sexual Orientation Not on file Obstetrics History Last Filed Vital Signs Vital Sign Reading Time Taken Comments Blood Pressure 122/78 02/22/2024 9:26 AM EDT Pulse 69 02/22/2024 9:26 AM EDT Temperature - - Respiratory Rate - - Oxygen Saturation - - Inhaled Oxygen Concentration - - Weight 84.1 kg (185 lb 6.4 oz) 02/22/2024 9:26 A M EDT Height 160 cm (5' 3 ) 02/22/2024 9:26 AM EDT Body Mass Index 32.84 02/22/2024 9:26 AM EDT Plan of Treatment Upcoming Encounters Date Type Department Care Team (Late st Contact Info) Description 03/27/2025 11:00 AM EST Appointment Radiology Department [address] [phone] Health Maintenance Due Date Last Done Comments Hepatitis B Vaccines (1 of 3 - 19+ 3-dose series) 1984 Pneumococcal Vaccine: 50+ Years (1 of 2 - PCV) 1984 Pneumococcal Vaccine: Pediatrics (0 to 5 Years) and At-Risk Patients (6 to 64 Years) (1 of 2 - PCV) 1984 HIV Screening 04/17/2022 Social Influencers of Health Screening 04/17/2022 COVID-19 Vaccine ( season) 2024 03/18/2022, 09/29/2021, 07/19/2021, Additional history exists Cervical Cancer Screening: HPV 10/19/2024 10/20/2019 Depression Screening 12/22/2024 12/23/2023 Hypertension/CHF/CAD Annual BMP Blood Test 12/22/2024 12/23/2023, 12/23/2023 Influenza Vaccine (Season Ended) 2025 02/23/2023, 02/27/2022, 09/18/2021, Additional history exists Breast Cancer Screening 02/22/2026 02/23/20 24, 02/23/2024, 02/16/2023, Additional history exists Cholesterol Screening (Lipid Panel) 12/22/2028 12/23/2023, 12/23/2023 DTaP,Tdap,and Td Vaccines (4 - Td or Tdap) 07/29/2031 07/28/2021, 06/09/2019, 03/18/2018 Colorectal Cancer Screening: Colonoscopy 05/29/2032 05/29/2022 Hepatitis C Screening Completed 06/08/2019 Zoster Vaccines Completed 09/29/2021, 07/30/2021 HIB Vaccines Aged Out No longer eligi ble based on patient's age to complete this topic HPV Vaccines Aged Out No longer eligi ble based on patient's age to complete this topic Hepatitis A Vaccines Aged Out No long er eligible based on patient's age to complete this topic IPV Vaccines Aged Out No longer eligi ble based on patient's age to complete this topic MMR Vaccines Aged Out No longer eligi ble based on patient's age to complete this topic Meningococcal ACWY Vaccine Aged Out N o longer eligible based on patient's age to complete this topic Meningococcal B Vaccine Aged Out No l onger eligible based on patient's age to complete this topic RSV Immunization Patients Under 20 months Aged Out No longer eligible based on patient's age to complete this topic Varicella Vaccines Aged Out No longer eligible based on patient's age to complete this topic Procedures Procedure Name Priority Date/Time Associated Diagnosis Comments SCREENING MAMMOGRAPHY BI 2-VIEW BREAST INC CAD Routine 02/23/2024 11:33 AM EDT Encounter for screening mammogram for malignant neoplasm of breast DEPRESSION SCREENING Routine 12/23/2023 ANNUAL BMP BLOOD TEST Routine 12/23/2023 LIPID PANEL Routine 12/23/2023 COLONOSCOPY Routine 05/29/2022 HPV Routine 10/20/2019 HEPATITIS C SCREENING Routine 06/08/2019 from Last 3 Months or Most Recently Relevant to Health Maintenance Results * SCREENING MAMMOGRAPHY BI 2-VIEW BREAST INC CAD (02/23/2024 11:33 AM EDT) Anatomical Region Laterality Modality Radiographic Shelly ging 02/16/2023 10:1 5 AM EDT Narrative 02/23/2024 4:44 PM EDT This is a summary report. The complete report is available in the patient's medical record. If you cannot access the medical record, please contact the sending organization for a detailed fax or copy. Full field digital screening tomosynthesis mammography, reviewed with CAD and compared to previous. The breasts are composed of fatty and fibroglandular tissue. No suspicious mass, architectural distortion or suspicious calcifications are identified. IMPRESSION: : No mammographic evidence of malignancy. BIRADS 1-Negative; N. Breast density: The breasts have scattered areas of fibroglandular density. 5 year breast cancer risk assessment 0.9 % Lifetime breast cancer risk assessment 5.7 % Breast cancer risk category Low (<15%) Location: [facility], [address] [place] [address], [id number], [phone] Procedure Note Concepcion Hong MD - 03/07/2024 This is a summary report. The complete report is available in thepatient's medical record. If you cannot access the medical record, pleasecontact the sending organization for a detailed fax or copy. Full field digital screening tomosynthesis mammography, reviewed with CADand compared to previous. The breasts are composed of fatty andfibroglandular tissue. No suspicious mass, architectural distortion orsuspicious calcifications are identified. IMPRESSION: : No mammographic evidence of malignancy. BIRADS 1-Negative; N. Breast density: The breasts have scattered areas of fibroglandulardensity. 5 year breast cancer risk assessment 0.9 % Lifetime breast cancer risk assessment 5.7 % Breast cancer risk category Low (<15%) Location: [facility], [address] [place] [address] [place], [address], [phone] Result [facility] Urvashi HOLLIDAY IMG XR PROCEDURES Final Re sult * Annual BMP Blood Test (12/23/2023) [facility] Annual BMP Blood Test abstracted Result [facility] Provider HEALTH MAINTENANCE Final Result * Depression Screening (12/23/2023) [facility] Depression Screening abstracted [facility] Provider HEALTH MAINTENANCE Final Result * (ABNORMAL) Lipid panel (12/23/2023) [facility] LDL/HDL Ratio 4 0 - 4 Triglycerides 312(A) 0 - 150 mg/dL Cholesterol 260(A) 0 - 200 mg/dL HDL 59 >=40 mg/dL LDL Cholesterol 139(A) 0 - 100 mg/dL Blood Venous blood specimen / Unknown Result [facility] Historical Provider LAB BLOOD ORDERABLES Yenifer l Result * Colonoscopy (05/29/2022) [facility] Colonoscopy 12/23/2023 Anatomical Region Laterality Modality Other Historical Provider HEALTH MAINTENANCE Final Result * Cervical Cancer Screening: HPV (10/20/2019) Pathologist [facility] Cervical Cancer Screening: HPV abstracted ,negative Result [facility] Historical Provider HEALTH MAINTENANCE Final Result * Hepatitis C Screening (06/08/2019) Pathologist [facility] Hepatitis C Screening abstracted Result [facility] Provider HEALTH MAINTENANCE Final Result from Last 3 Months or Most Recently Relevant to Health Maintenance Care Teams Power Press Operator Relationship Specialty Start Date End Date Juanis Storey PA PCP - General 02/22/24
--- OUTSIDE RECORDS SUMMARY | 2024-11-07 09:48 | XMS_ITS | Clinical Summary ---
Author Organization [facility] Address [address] [place] [address] Care Team Providers Care Licensed Embalmer Name Role Phone Juanis Storey PA-C Primary Care Provider Allergies Active Allergy Reactions Criticality Noted Date Comments Sulfa Antibiotics 07/05/2017 Tramadol Itching 03/24/2018 Medications Medication Sig Dispensed Refills Start Date End Date Status ergocalciferol (VITAMIN D2) capsule 59866 units Take 1 capsule (50,000 Units total) by mouth once a week. 12 capsule 1 06/20/2018 Active DULoxetine (CYMBALTA) DR capsule 60 mg TAKE 1 CAPSULE BY MOUTH EVERY DAY 30 capsule 5 02/05/2019 Active Additional Information Patient not taking.Reason: Not effective, Reported on 02/08/2019 lisinopril (PRINIVIL,ZESTRIL) tablet 2.5 mg TAKE 1 TABLET BY MOUTH DAILY. FOR BLOOD PRESSURE AND KIDNEY PROTECTION 30 tablet 5 02/05/2019 Active nortriptyline (PAMELOR) 10 MG capsule 1-2 qhs for sleep and headaches 60 capsule 5 02/08/2019 Active predniSONE (DELTASONE) tablet 20 mg 2 qd x 5 d 10 tablet 0 02/08/2019 Active pramipexole (MIRAPEX) 0.75 MG tabletIndications: Restless leg syndrome TAKE 1 TABLET BY MOUTH EVERY DAY 30 tablet 2 02/20/2020 Active Active Problems Problem Noted Date Diagnosed Date Quit smoking 06/16/2018 11/02/2018 Vitamin D deficiency 07/27/2018 Mixed hyperlipidemia 06/15/2018 Right elbow pain 04/08/2018 Right wrist pain 04/08/2018 r/o Right carpal tunnel syndrome 04/08/2018 r/o Ulnar neuropathy at elbow, right 04/08/2018 Status post rotator cuff repair 11/0303/08/2018 Complete tear of left rotator cuff 11/09/2017 Osteopenia of lumbar spine T-1.3 08/16/2017 (ayse l BMD hip) 08/22/2017 Restless legs syndrome 07/05/2017 DDD (degenerative disc disease), lumbosacral Situational stress 07/05/2017 Recurrent major depressive disorder, in partial remission 07/05/2017 Resolved Problems Problem Noted Date Diagnosed Date Resolved Date Biceps tendonitis, left 09/24/201702/09 Tendinitis of left rotator cuff 09/24/2017 03/08/2018 Acute pain of left shoulder 09/07/2017 03/08/2018 Impingement syndrome of left shoulder 09/07/2017 03/08/2018 Left shoulder strain 09/07/2017 018 Immunizations Name Administration Dates Next Due Influenza Quad (Fluarix/Fluz one/FluLaval) 0.5mL (SD-IIV4) 02/08/2019 Influenza Quad (Flucelvax) 0.5mL >6mon (ccIIV4) 03/18/2018 Tdap 03/18/2018 Family History Medical History Relation Name Comments Heart disease Father Hypertension Father Diabetes Mother Hypertension Mother Relation Name Status Comments Father Alive Mother Alive Social History Tobacco Use Types Packs/Day Years Used Date Smoking Tobacco: Every Day Cigarettes 0.5 Started: 09/07/1997 Smokeless Tobacco: Never Alcohol Use Standard Drinks/Week Comments Yes 0 (1 standard drink = 0.6 oz pur e alcohol) occ Sex and Gender Information Value Date Recorded Sex Assigned at Not on file Gender Identity Not on file Sexual Orientation Not on file Job Start Date Occupation Industry Not on file Not on file Not on file Last Filed Vital Signs Vital Sign Reading Time Taken Comments Blood Pressure 140/88 02/08/2019 9:11 AM EDT Pulse 84 02/08/2019 9:11 AM EDT Temperature 37.2 C (99 F) 09/30/2018 10:59 AM EDT Respiratory Rate 18 11/03/2017 3:45 PM EDT Oxygen Saturation 97% 02/08/2019 9:11 AM EDT Inhaled Oxygen Concentration - - Weight 88.5 kg (195 lb) 02/08/2019 9:11 AM EDT Height 160 cm (5' 3 ) 09/30/2018 10:59 AM EDT Body Mass Index 34.54 09/30/2018 10:59 AM EDT Plan of Treatment Health Maintenance Due Date Last Done Comments Hepatitis B Vaccines (1 of 3 - 3-dose series) 1966 Hepatitis C Screening 1966 COVID-19 Vaccine (#1) 1966 Pneumococcal Vaccine (1 of 2 - PCV) 1972 Depression Screening 1978 BMI Counseling 1984 Diabetes: Eye Exam (No Retinopathy) 1984 Diabetes: Foot Exam 1984 Diabetes: Microalbumin Test 1984 Hemoglobin A1C Due 1984 Preventative Health Evaluation 1984 Tobacco Cessation Counseling 1984 Cervical Cancer Screening (Pap Smear) 1987 Colon Cancer Screening (Colonoscopy) 2011 Breast Cancer Screening (Mammogram) 2016 Shingrix-Zoster Vaccine (1 o f 2) 2016 Influenza Vaccine (Season Ended) 2025 02/08/2019, 03/18/2018 DTap / Tdap / Td (2 - Td or Tdap) 03/18/2028 03/18/2018 RSV Ped < 20 months Aged Out No longe r eligible based on patient's age to complete this topic Medical Devices Implanted Type Area Fuel Cell Builder Device Identifier Shelf Expiration Date Model / Serial / Lot Vulcan Sut 5.5mm Fullthrd Med Insite Preld [facility] Fbr Sprt Peek - [id number] - [id number] Implanted:Qt y: 1 on 11/03/2017 by Johnson Alfred MD [place] [facility] [place] Left: Shoulder [employer] 05/18/2020 [id number] / / [id number] Vulcan Suture Q-Fix Od2.8 Mm - [id number] - [id number] Implanted:Qt y: 1 on 11/03/2017 by Johnson Alfred MD [place] [facility] [place] [facility] [place] Left: Shoulder [employer] ORTHOPAEDIC 06/12/2020-582 / / [id number] Care Teams Licensed Embalmer Relationship Specialty Start Date End Date Juanis Storey PA-C PCP - General Assembler Mechanical Ordnance 01/27/14
== END 2024-11-07 10:45 | disposition home or self-care (01) ==
LOC: HO.HSMS 09:15
PROVIDERS: PCP Student in an Organized Health Care Education/Training Program; Visit Provider Nurse Practitioner Family
DX: G43.119 Migraine with aura, intractable, without status migrainosus (principal); G25.81 Restless legs syndrome; G47.33 Obstructive sleep apnea (adult) (pediatric); W57.XXXA Bitten or stung by nonvenomous insect and other nonvenomous arthropods, initial encounter
CPT/HCPCS: 99214

== ENCOUNTER 2024-11-09 09:43 | Outpatient (REF) | payer MEDICARE, SELFPAY ==
--- OUTSIDE RECORDS SUMMARY | 2024-11-09 10:11 | XMS_ITS | Data Portability ---
Author Organization [place] [facility], Allergy Address [address] [place] [phone] Care Team Providers Care Financial Manager Name Role Phone [facility] Primary Care Darline sveta Assessment Encounter [...] steroids such as Flonase which is currently mcng-zty-knidonn may be helpful. Devices such as a [...] (PROC ) No observ ation record ed. [facility] (Medical Records) [address] [place], [address], 05/08/2024 11:44:38 05/08/20 24 03/26/2023 polys omnog perla No observ ation record ed. BARCODE Not Available 2023 11:30:23 Result Notes None recorded. Problems Name Problem SNOMED Code Status Onset Date Resolution Date Notes Provider Name and Address Organization Details Recorded Time Obstructive sleep apnea syndrome 48496058 Active 2023 JUVE TORRES MD [address] [place] [address], [place], [phone], [facility] 11:56:28 Tobacco dependence caused by cigarettes 1847878155963 9107 Active 2023 JUVE TORRES MD [address] [place] [address], [place], [address], [facility] 11:56:32 Problem Notes None recorded. Procedures Surgical History Date Name Laterality Status Provider Name and Address Organization Details Recorded Time 05/08/2024 FOL_DP completed JUVE TORRES MD [address] [place] [address], [phone], [facility] 05/04/2024 13:04:57 Imaging Results None recorded. Procedure Notes None recorded. Medical Equipment None Reported. Allergies Allergen ID Allergen Name Allergen Category Reaction Reaction Severity Criticality Documentation Date Start Date Code Code System Note Provider Name and Address Organization Details Recorded Time 513241 tramadol medicatio n itching Not available Not available 05/08/2024 31883 RxNorm Melly mejia [facility] 11:42:46 Medications Name Sig Start Date [...] Updated DateTime 05/08/2024 160.02 cm 32.8 kg/m2 92538.59 g Melly Trent [place] - [facility] 05/08/2024 11:43:56 Social History None recorded. Functional Status None recorded. Mental Status None recorded. Family History Nothing Reported. Medical History Condition Response Depression Y Anxiety Y Migraines Y Hypertension Y Gynecological HistoryNo gynecological history recorded. Obstetrics History GPAL:G 0 P 0 0 0 0 Past Encounters Encounter ID Performer Location Encounter Start Date Encounter Closed Date Diagnosis/Indication Diagnosis SNOMED-CT Code Diagnosis ICD10 Code Diagnosis Note [id number] JUVE TORRES MD [facility] [address] [phone] 05/08/2024 11:21:37 05/08/2024 11:58:20 Obstructive sleep apnea syndrome 67225615 G47.33 Tobacco de pendence caused by cigarettes 9973165739 8246929 F17.210 Health Concerns Section Related Observation LastModified by Organization Detai ls LastModified Time None Recorded Concern Status LastModified by Organization Details LastModified Time None Recorded Advance Directives Directive None Recorded Payers Insurance Date Sequence Insurance Name Policy Number Policy Toussaint Covered Member ID Toussaint Member ID Guarantor Name 05/08/2024 1 [employer] [id number] Tory Campbell [id number] Tory Campbell 05/08/2024 1 [employer] (MEDICARE REPLACEMENT/A DVANTAGE - PPO) [id number] Tory Campbell [id number] Tory Campbell 05/08/2024 2 [place] [facility] Tory Campbell [id number] Tory Adrian Notes Date Note Type Note [...] from back injurytobacco 1/2ppd JUVE TORRES MD [address] [place] [address], [place], [address], [place] [facility] 05/08/2024 11:59:07 OBGyn Episode No OBEpisode recorded.
--- OUTSIDE RECORDS SUMMARY | 2024-11-09 10:11 | XMS_ITS | Encounter Summary ---
Author Organization [facility] Address [address] [place] [address] Care Team Providers Care Tufter Name Role Phone Juanis Storey Primary Care Provider [phone] Pcp, No Primary Care Provider Unavailabl e Encounter Details Date Type Department Care Team (Late st Contact Info) Description 10/12/2019 Scanned Document [facility] [address] [place] [phone] Suha Bazzi PA-C [address] [facility] [place] [address] Social History Tobacco Use Types Packs/Day Years [...] on filedocumented in this encounter Care Teams Tufter Relationship Specialty Start Date End Date Juanis Storey PA PCP - General 10/05/19 12/10/19 Pcp, No PCP - General General Medicine 12/11/19 documented as of this encounter
--- OUTSIDE RECORDS SUMMARY | 2024-11-09 10:11 | XMS_ITS | Clinical Summary ---
Author Organization [facility] Address [address] [place] [address] Care Team Providers Care Cigarette Stamper Name Role Phone Juanis Storey PA-C Primary Care Provider Allergies Active Allergy Reactions Criticality Noted Date Comments Sulfa Antibiotics 07/05/2017 Tramadol Itching 03/24/2018 Medications Medication Sig Dispensed Refills Start Date End Date Status ergocalciferol (VITAMIN D2) capsule 15983 units Take 1 capsule (50,000 Units total) [...] this topic Medical Devices Implanted Type Area Grievance And Appeals Specialist Device Identifier Shelf Expiration Date Model / Serial / Lot Douglas Sut 5.5mm Fullthrd Med Insite Preld [facility] Fbr Sprt Peek - [id number] - [id number] Implanted:Qt y: 1 on 11/03/2017 [place] [facility] [place]: Shoulder [employer] 05/18/2020 [id number] / / [id number] Douglas Suture Q-Fix Od2.8 Mm - [id number] - [id number] Implanted:Qt y: 1 on 11/03/2017 by [place] Alfred [place] [facility] [place]: Shoulder [employer] ORTHOPAEDIC 06/12/2020-539 / / [id number] Care Teams Cigarette Stamper Relationship Specialty Start Date End Date Juanis Storey PA-C PCP - General Fabric Sourcer 01/27/14
--- OUTSIDE RECORDS SUMMARY | 2024-11-09 10:11 | XMS_ITS ---
Author Name [facility] Organization Unknown Encounters Encounter Type Encounter Reason Primary Diagnosis Location Date Ambulatory [facility] 02/18/2024 Care Team Organization Name Specialty Phone Email Start Date End Da te [facility] 2024 [facility]/09/2022 [facility] [place] [facility] NO PCP Primary Care
--- OUTSIDE RECORDS SUMMARY | 2024-11-09 10:11 | XMS_ITS | Encounter Summary ---
Author Organization [facility] Address [address] [place] [address] Care Team Providers Care Web Publisher Name Role Phone Yuriy De Leon DO Primary Care Provider Shanae Goss MD Primary Care Provider Un available Encounter Details Date Type Department Care Team Description 02/25/2023 Telephone Adult Medicine [address] [address] Yuriy De Leon DO Social History Tobacco Use Types Packs/Day Years Used Date Smoking Tobacco: Every Day Cigarettes 0.5 20 Last attempted to quit: 06/20/2018 Smokeless Tobacco: Never Alcohol Use Standard Drinks/Week Comments Yes 0 (1 standard drink = 0.6 oz pur e alcohol) rare Alcohol Habits Answer Date Recorded How often do you have a drink containing alcohol ? Monthly or less 07/28/2021 How many drinks containing a lcohol do you have on a typical day when you are drinking? 1 or 2 07/28/2021 How often do you have six or more drinks on one occasion? Never 07/28/2021 Social Isolation Answer Date Recorded In a typical week, how many times do you talk on the phone with family, friends, or neighbors? More than three times a week 07/28/2021 How often do you get togethe r with friends or relatives? More than three times a week 07/28/2021 How often do you attend chur ch or cheondoism services? Never 07/28/2021 Do you belong to any clubs o r organizations such as anglican groups, unions, fraternal or athletic groups, or school groups? No 07/28/2021 How often do you attend meet ings of the clubs or organizations you belong to? Never 07/28/2021 Are you now , , , , never or living with a partner? 07/28/2021 Physical Activity Answer Date Recorded On average, how many days pe r week do you engage in moderate to strenuous exercise (like walking fast, running, jogging, dancing, swimming, biking, or other activities that cause a light or heavy sweat)? 0 days 07/28/2021 On average, how many minutes do you engage in exercise at this level? 0 min 07/28/2021 Stress Answer Date Recorded Do you feel stress - tense, restless, nervous, or anxious, or unable to sleep at night because your mind is troubled all the time - these days? Rather much 07/28/2021 Financial Resource Strain Answer Date R ecorded How hard is it for you to pa y for the very basics like food, housing, medical care, and heating? Not very hard 07/28/2021 Intimate Partner Violence Answer Date R ecorded Within the last year, have y ou been afraid of your partner or ex-partner? No 07/28/2021 Within the last year, have y ou been humiliated or emotionally abused in other ways by your partner or ex-partner? No Within the last year, have y ou been kicked, hit, slapped, or otherwise physically hurt by your partner or ex-partner? No 07/28/2021 Within the last year, have y ou been raped or forced to have any kind of sexual activity by your partner or ex-partner? No 07/28/2021 Food Insecurity Answer Date Recorded Within the past 12 months, y ou worried that your food would run out before you got money to buy more. Never true 07/28/2021 Within the past 12 months, t he food you bought just didn't last and you didn't have money to get more. Never true 07/28/2021 Transportation Needs Answer Date Record ed In the past 12 months, has l ack of transportation kept you from medical appointments or from getting medications? No 07/09 In the past 12 months, has l ack of transportation kept you from meetings, work, or getting things needed for daily living? No 07/28/2021 Housing Stability Answer Date Recorded In the last 12 months, was t here a time when you were not able to pay the mortgage or rent on time? No 07/28/2021 In the last 12 months, how many places have you lived? Not asked In the last 12 months, was t here a time when you did not have a steady place to sleep or slept in a fpc (including now)? No 07/28/2021 Sex Assigned at Date Recorded Female 07/15/2022 8:[address] Job Start Date Occupation Industry Not on file Not on file Not on file COVID-19 Exposure Response Date Recorded In the last 10 days, have yo u been in contact with someone who was confirmed or suspected to have Coronavirus/COVID-19? No / Unsure 02/23/2023 8:17 AM EDT documented as of this encounter Miscellaneous Notes * Telephone Encounter - Mari Benavides M.A. - 03/03/2023 10:39 AM EDT Spoke to patient and message was given below. * Telephone Encounter - Amita Trinh - 03/01/2023 4:18 PM EDT Pt calling returning phone call * Telephone Encounter - Mari Benavides M.A. - 03/01/2023 3:17 PM EDT Left voicemail to asking call regarding message below. * Telephone Encounter - Mari Benavides M.A. - 02/25/2023 1:18 PM EDT ----- Message from Yuriy De Leon DO sent at 02/24/2023 5:27 PM EDT ----- Please review documented in this encounter Plan of Treatment Not on file documented as of this encounter Visit Diagnoses Not on filedocumented in this encounter Care Teams Web Publisher Relationship Specialty Start Date End Date Yuriy De Leon DO PCP - General Internal Medicine 06/11/21 10/24/23 Shanae Hanson MD PCP - General Internal Medicine 10/25/23 documented as of this encounter
--- OUTSIDE RECORDS SUMMARY | 2024-11-09 10:11 | XMS_ITS | Clinical Summary ---
Author Organization [facility] it Address [address] [place] [address] Care Team Providers Care Application Counselor Name Role Phone Juanis Storey Primary Care Provider [phone] Allergies Active Allergy Reactions Criticality Noted Date [...] Recurrent major depression i n partial remission ([facility] V24) 05/11/2019 Immunizations Name Administration Dates Next Due Influenza Quadravalent, MDCK , 0.5ml, preservative free (Flucelvax) 6mo and older 02/23/2023,02/27/2022 Influenza trivalent, with preservative (Fluzone; Afluria) 6mo and older 03/23/2020 Influenza, Unspecified 09/18/2021 Pure Storage SARS-CoV-2 COVID-19, mRNA, LNP-S, preservative free 03/18/2022,09/29/2021,07/19/2021,2020 [...] Recurrent major depression i n partial remission ([facility] V24) 05/11/2019 DX:Recurrent major depressio n in partial remission ([facility]) Osteopenia 06/22/2019 DX:Osteopenia; C OMMENT: Of lumbar [...] 03/27/2025 11:00 AM EST Appointment Radiology Department [address] [phone] Health Maintenance Due Date Last Done Comments [...] Breast cancer risk category Low (<15%) Location: [facility], [address] [place] [address], [phone], [phone] Procedure Note Concepcion Hong MD - 03/07/2024 [...] Breast cancer risk category Low (<15%) Location: [facility], [address] [place] [address] [place], [address], [phone] Result [facility] Urvashi HOLLIDAY IMG XR PROCEDURES Final Re sult * Annual BMP Blood Test (12/23/2023) [facility] Annual BMP Blood Test abstracted Result [facility] Provider HEALTH MAINTENANCE Final Result * Depression Screening (12/23/2023) [facility] Depression Screening abstracted [facility] Provider HEALTH MAINTENANCE Final Result * (ABNORMAL) Lipid panel (12/23/2023) [facility] LDL/HDL Ratio 4 0 - 4 Triglycerides 312(A) 0 - 150 mg/dL Cholesterol 260(A) 0 - 200 mg/dL HDL 59 >=40 mg/dL LDL Cholesterol 139(A) 0 - 100 mg/dL Blood Venous blood specimen / Unknown Result [facility] Historical Provider LAB BLOOD ORDERABLES Yenifer l Result * Colonoscopy (05/29/2022) [facility] Colonoscopy 12/23/2023 Anatomical Region Laterality Modality Other Historical Provider HEALTH MAINTENANCE Final Result * Cervical Cancer Screening: HPV (10/20/2019) Pathologist [facility] Cervical Cancer Screening: HPV abstracted ,negative Result [facility] Historical Provider HEALTH MAINTENANCE Final Result * Hepatitis C Screening (06/08/2019) Pathologist [facility] Hepatitis C Screening abstracted Result [facility] Provider HEALTH MAINTENANCE Final Result from Last 3 Months or Most Recently Relevant to Health Maintenance Care Teams Application Counselor Relationship Specialty Start Date End Date Juanis Storey PA PCP - General 02/22/24
--- OUTSIDE RECORDS SUMMARY | 2024-11-09 10:11 | XMS_ITS | Clinical Summary ---
Author Organization [facility] Address [address] [place] [address] Care Team Providers Care Club Director Name Role Phone Juanis Storey Primary Care [...] - 2023-2 5 season) 2024 Influenza Vaccine (#1) 2025 DTaP,Tdap,and Td Vaccines (3 - Td [...] RACHEL [employer]ESS [employer] WC Care Teams Club Director Relationship Specialty Start Date End Date Juanis Storey PA PCP - General Internal Medicine 02/13/19
[2024-11-09 14:50] LABS: MANUAL DIFF FLAG NO
[2024-11-09 14:55] LABS: Hematocrit 41.0 % (37.0-47.0); Hemoglobin 13.4 g/dl (12.0-16.0); Imm Gran Abs Auto 0.01 X10*3/uL (0.00-0.03); Imm Gran Pct Auto 0.2 % (0.0-0.4); Lymphocytes Absolute Auto 2.1 X10*3/uL (1.2-4.9); Mean Corpuscular HGB Conc 32.7 g/dl (31.0-35.0); Mean Corpuscular Hemoglobin 29.7 pg (27.0-33.0); Mean Corpuscular Volume 90.9 fL (80.0-98.0); NRBC Abs Auto 0.000 X10*3/uL (0.0-0.012); NRBC Pct Auto 0.0 /100WBC (0.0-0.2); Platelet Count 266 X10*3/uL (160-400); Red Blood Count 4.51 X10*6/uL (4.20-5.50); White Blood Count 5.5 X10*3/uL (4.8-10.8)
[2024-11-09 15:53] LABS: Alanine Aminotransferase 15 U/L (0-31); Albumin Level 3.7 g/dL (3.5-5.0); Alkaline Phosphatase 58 U/L (39-117); Anion Gap 10 (12-20); Aspartate Amino Transferase 23 U/L (5-31); Blood Urea Nitrogen 13 mg/dL (9-16); Calcium 8.5 mg/dL (8.4-10.2); Carbon Dioxide 24 mmol/L (22-29); Chloride 108 mmol/L (96-108); Estimated Glomerular Filt Rate > 60; Iron 75 mcg/dL (30-160); Percent Iron Saturation 32 % (15-50); Potassium 4.2 mmol/L (3.3-5.1); Sodium 138 mmol/L (135-145); Total Iron Binding Capacity 235 mcg/dL (228-428); Total Protein 6.3 g/dL (6.5-8.0); Unsaturated Iron Binding 160 ug/dL
[2024-11-09 15:54] LABS: Folate 5.7 ng/mL (> or = 4.0); Vitamin B12 321 pg/mL (200-900)
[2024-11-09 15:55] LABS: Ferritin 94 ng/mL (10-250)
[2024-11-13 11:59] LABS: Vitamin D 25-OH, D2 <4 ng/mL; Vitamin D 25-OH, D3 18 ng/mL; Vitamin D 25-OH, Total 18 ng/mL (30-100)
== END 2024-11-09 09:44 | disposition home or self-care (01) ==
LOC: HO.HKASLDS 09:43
PROVIDERS: Visit Provider Nurse Practitioner Family
DX: D64.9 Anemia, unspecified (principal); R53.83 Other fatigue; E55.9 Vitamin D deficiency, unspecified; E66.9 Obesity, unspecified; W57.XXXA Bitten or stung by nonvenomous insect and other nonvenomous arthropods, initial encounter
CPT/HCPCS: 36415; 80053; 82306; 82607; 82728; 82746; 83540; 84443; 85025; 85652; 86140